=== PATIENT | male | born 1965 | race Caucasian/White ===

== ENCOUNTER 2016-09-18 10:01 | Inpatient (IN) | payer OTHER, MEDICARE ==
[~2016-09-18] VITALS: Ht 172.7 cm; Wt 90.7 kg
[~2016-09-18 10:01] MED LIST: AUGMENTIN 875875 MG PO; FLUOXETINE HCL20 MG PO; GABAPENTIN TAB600 MG PO; LOVENOX 10100 MG/1 M SC; NEURONTIN300 MG PO; PERCOCET 325 MG1 TA2 PO; WARFARIN SODIUM5 MG PO
--- NOTE | 2016-09-18 10:09 | NUR ---
PT TO ED, SENT BY DR FAIRBANKS FOR ADMISSION FOR IV ABX. PT HAS CHRONIC WOUNDS TO B/L LE. PT NEEDS DIURESIS AND EVENTUALLY PLACEMENT. PT HAS BEEN GOING TO THE WOUND CENTER TWICE A WEEK.
--- NOTE | 2016-09-18 10:28 | ED SKIN/ALLERGY COMPLAINT ---
History of Present Illness General Chief Complaint: Lower Extremity Injury Stated Complaint: ? LEG INFECTION Source: patient Exam Limitations: no limitations Allergies Coded Allergies: NO KNOWN ALLERGIES (UNKNOWN 09/21/16) Reconcile Medications Amoxicillin/Clavulanate Potass (Amox-Clav 875-125 MG Tablet) 875 MG-125 MG TABLET 1 TAB PO Q12 Skin infection FLUOXETINE HCL (Fluoxetine HCl) 20 MG CAPSULE 1 CAP PO DAILY DEPRESSION ( Reported) Gabapentin 100 MG CAPSULE 1 TAB PO 0600,1400 Neuropathy Gabapentin 300 MG CAPSULE 1 CAP PO AT BEDTIME neuropathy Hydrocodone/Acetaminophen (Hydrocodon-Acetaminophen 5-325) 5 MG-325 MG TABLET 2 TAB PO Q4-6 PRN Back pain Lidocaine (Lidoderm) 5 % ADH..PATCH 1 PAT EXT DAILY PRN Back pain Oxycodone HCl/Acetaminophen (Oxycodone-Acetaminophen 5-325) 5 MG-325 MG TABLET 5 PAIN CONTROL (Reported) Polyethylene Glycol 3350 (Miralax) 17 GRAM/DOSE POWDER 1 PAC PO AT BEDTIME PRN Contipation Please take to maintain 1 bowel movement per day Rivaroxaban (Xarelto) 15 MG TABLET 15 BLOOD THINNER (Reported) Sennosides/Docusate Sodium (Senna Plus Tablet) 8.6 MG-50 MG TABLET 1 TAB PO AT BEDTIME PRN Constipation Please take to maintain one bowel movement per day Triage Note: PT TO ED, SENT BY DR HUNTER FOR ADMISSION FOR IV ABX. PT HAS CHRONIC WOUNDS TO B/L LE. PT NEEDS DIURESIS AND EVENTUALLY PLACEMENT. PT HAS BEEN GOING TO THE WOUND CENTER TWICE A WEEK. Triage Nurses Notes Reviewed? yes HPI: This patient is a 51-year-old male who presented to the emergency department today sent in by Dr. HUNTER for evaluation of lower extremity infections. The patient reported that over the last couple of days the pain in his lower extremities has been worse than normal. The pain developed at 10 out of 10 and radiates up to his thighs. He was unable to describe the pain. The patient reported that he was vomiting a couple days ago, but no nausea or vomiting currently. He denied any fevers or chills. No chest pain or difficulty breathing. He reported that ambulation makes the pain worse. Nothing makes the pain better. (SUMANTH ROCKWELL,KENNEDI) Vital Signs & Intake/Output Vital Signs & Intake/Output Vital Signs Date Time Temp Pulse Resp B/P B/P Pulse O2 O2 Flow FiO2 Mean Ox Delivery Rate 09/22 0616 98.1 86 20 120/90 99 Room Air 09/21 2250 98.2 94 20 144/84 100 Room Air 09/21 1506 Room Air Room Air 09/21 1441 98.8 92 20 122/80 96 Room Air ED Intake and Output 09/22 0000 09/21 1200 Intake Total 900 Output Total 900 300 Balance 0 -300 Intake, IV 200 Intake, Oral 700 Number 1 Bowel Movements Output, Urine 900 300 Past History Travel History Traveled to [place] past 21 day No Medical History Any Pertinent Medical History? see below for history Psychiatric: depression Endocrine: borderline dm History of MRSA: Yes History of VRE: No History of CDIFF: No Pneumonia Vaccine: 08/23/12 Surgical History Surgical History: non-contributory Psychosocial History Who do you live with Patient/Self Services at Home Nursing What is your primary language Sinhala Tobacco Use: Current Not Daily ETOH Use: denies use Illicit Drug Use: denies illicit drug use Family History Family History, If Any: FATHER (Hypertension and heart disease). MOTHER (Hypertension). Hx Contributory? No (KENNEDI JULIO PA-C) Review of Systems Review of Systems Constitutional: Reports: no symptoms. EENTM: Reports: no symptoms. Respiratory: Reports: no symptoms. Cardiovascular: Reports: no symptoms. GI: Reports: no symptoms. Genitourinary: Reports: no symptoms. Musculoskeletal: Reports: see HPI. Skin: Reports: see HPI. Neurological/Psychological: Reports: no symptoms. All Other Systems: Reviewed and Negative (KENNEDI JULIO PA-C) Physical Exam Physical Exam General Appearance: well developed/nourished, no apparent distress, alert, awake Comments: Well-developed well-nourished person in no acute distress HEENT: Normal EENT exam, head normocephalic, moist mucous membranes PERRLA bilaterally Neck: Supple, no lymphadenopathy Back: Normal inspection Cardiovascular: Regular rate and with no murmurs, rubs, or gallops Respiratory: No respiratory distress. Breath sounds clear to auscultation bilaterally Extremity: Bilateral lower extremity erythema with multiple ulcerations to the bilateral lower extremities. Tenderness to palpation. Edematous. 1+ pitting edema. Dorsalis pedis and posterior tibialis pulses 2+ and strong. Neuro: Alert oriented x3, cranial nerves II through XII grossly intact. Skin: No appreciable rash on exposed skin, skin is warm and dry. Psych: Mood and affect is flat (KENNEDI JULIO PA-C) Progress Differential Diagnosis: abscess/cellulitis, contact dermatitis, erythema multiforme, lyme disease, meningitis/sepsis, dvt, pe Initial ED EKG: normal axis, normal intervals, normal sinus rhythm, no ST T wave changes, 92 BPM (KENNEDI JULIO PA-C) Plan of Care: Orders Procedure Date/time Status Anticipated Discharge 09/22 UNK Active Therapeutic Activities 09/21 UNK Complete Therapeutic Exercise 09/21 UNK Complete Gait Training 09/21 UNK Complete Current Medications Sig/Malinda Start time Last Medication Dose Stop Time Status Admin Acetaminophen/ 2 TAB Q4P PRN 09/22 0800 AC 09/22 Hydrocodone Bitart 0922 (Vicodin) Gabapentin 100 MG 0600,1400 09/22 0600 AC 09/22 (Neurontin) 0532 Amoxicillin/ 875 MG Q12 09/21 2200 AC 09/22 Clavulanate Potassium 09/24 1001 0926 (Augmentin) Gabapentin 300 MG 22009/21 2200 AC 09/21 (Neurontin) 2142 Morphine Sulfate 2 MG Q4P PRN 09/21 1200 AC 09/21 (Morphine) 1446 Ondansetron HCl 4 MG Q6P PRN 09/21 0030 AC 09/21 (Zofran) 0043 Polyethylene Glycol 17 GM AT BEDTIME 09/20 2200 AC 09/21 (Miralax) 2143 Senna/Docusate Sodium 1 TAB AT BEDTIME 09/20 2200 AC 09/21 (Senokot S) 2142 Acetaminophen 650 MG Q6P PRN 09/20 1500 AC (Tylenol) Fluoxetine HCl 20 MG DAILY 09/19 1000 AC 09/22 (Prozac) 0926 Nystatin 1 FRED TID PRN 09/19 0900 AC 09/19 (Mycostatin) 2144 Ferrous Sulfate 325 MG BID 09/18 2200 AC 09/22 (Feosol) 0926 Rivaroxaban 15 MG 1700 09/18 1700 AC 09/21 (Xarelto) 1925 Lidocaine 1 PAT DAILY 09/18 1445 AC 09/22 (Lidoderm) 0926 Laboratory Tests 09/21/16 1530: APTT Cancelled Departure Departure Disposition: STILL A PATIENT Condition: Stable Clinical Impression Primary Impression: Cellulitis Qualifiers: Site of cellulitis: unspecified site Qualified Code: L03.90 - Cellulitis, unspecified Secondary Impressions: Leukocytosis Qualifiers: Leukocytosis type: unspecified Qualified Code: D72.829 - Elevated white blood cell count, unspecified Referrals: GAURAV ESCOBAR,RONALD Garcia (PCP/Family) Departure Forms: Customer Survey General Discharge Information Prescriptions: Current Visit Scripts Amoxicillin/Clavulanate Potass (Amox-Clav 875-125 MG Tablet) 1 TAB PO Q12 #6 Gabapentin 1 TAB PO 0600,1400 30 Days Polyethylene Glycol 3350 (Miralax) 1 PAC PO AT BEDTIME PRN Contipation 28 Days Please take to maintain 1 bowel movement per day Sennosides/Docusate Sodium (Senna Plus Tablet) 1 TAB PO AT BEDTIME PRN Constipation 28 Days Please take to maintain one bowel movement per day Lidocaine (Lidoderm) 1 PAT EXT DAILY PRN Back pain 28 Days Gabapentin 1 CAP PO AT BEDTIME 30 Days Hydrocodone/Acetaminophen (Hydrocodon-Acetaminophen 5-325) 2 TAB PO Q4-6 PRN Back pain #60 TAB Admission Note Spoke With: IVELISSE TONY MD Documentation of Exam: Documentation of any treatments & extenuating circumstances including Concerns Regarding Discharge (functional status, medication knowledge or non-compliance, living conditions, etc.) that warrant an admission rather than observation: [ This patient is a 51-year-old male who presented to the emergency department today sent in by Dr. hunter for admission and IV antibiotics. White blood cell count 12.9. Cellulitis of bilateral lower extremities with overlying wounds. This patient will need IV antibiotics, gentle diuresis, gentle hydration, IV pain control, trend labs, and close monitoring. Premature discharge could prove medically harmful.] (SUMANTH ROCKWELL,KENNEDI) PA/IRON GUARDRAIL INSTALLER Co-Sign Statement Statement: ED Attending supervision documentation- [X] I saw and evaluated the patient. I have also reviewed all the pertinent lab results and diagnostic results. I agree with the findings and the plan of care as documented in the PA's/IRON GUARDRAIL INSTALLER's documentation. [X] I have reviewed the ED Record and agree with the PA's/IRON GUARDRAIL INSTALLER's documentation. [] Additions or exceptions (if any) to the PAs/IRON GUARDRAIL INSTALLER's note and plan are summarized below: [] (FLAVIA ESCOBAR,PARRISH Pascual)
[2016-09-18 11:10] LABS: ABSOLUTE BASOPHIL COUNT 0 /CUMM (0.0-0.2); ABSOLUTE EOSINOPHIL COUNT 0.3 /CUMM (0.0-0.7); ABSOLUTE GRANULOCYTE CT 10.4 /CUMM (1.4-6.5); ABSOLUTE LYMPH COUNT 1.3 /CUMM (1.2-3.4); ABSOLUTE MONOCYTE COUNT 0.8 /CUMM (0.10-0.60); BASOPHIL % 0.1 % (0.0-2.0); EOSINOPHIL % 2.3 % (0-5); HEMATOCRIT 36.6 % (42-52); MEAN CORPUSCULAR HGB 29.2 PG (27.0-31.0); MEAN CORPUSCULAR HGB CONC 33.5 G/DL (33.0-37.0); MEAN PLATELET VOLUME 7.5 FL (7.4-10.4); PLATELET COUNT 318 /CUMM (130-400); RBC DISTRIBUTION WIDTH 15.7 % (11.5-14.5); WHITE BLOOD CELL COUNT 12.9 /CUMM (4.8-10.8)
--- NOTE | 2016-09-18 12:28 | NUR ---
PT TO ROOM [id number]
--- NOTE | 2016-09-18 12:29 | History & Physical ---
ARCELIA APARICIO 09/18/16 1228: General Information and HPI MD Statement: I have seen and personally examined DINO MADDOX and documented this H&P. The patient is a 51 year old M who presented with a patient stated chief complaint of [leg swelling, left lower back/thigh pain]. Source of Information: patient, old records Exam Limitations: no limitations History of Present Illness: Mr Maddox 51-year-old gentleman with a PMH of chronic venous stasis for multiple years complicated with nonhealing ulcers for which he has undergone multiple debridements, I&D, splenic thickness skin graft, cellulitis with skin cultures positive for MRSA (2007), Pseudomonas, Proteus and MSSA. Additional PMH includes bilateral lower extremity DVT, ?? Factor V Leyden deficiency, history of GI bleed secondary to hemorrhoids, anemia, CKD and depression. The patient was referred to the ED after a visit to the wound center and noted to have progressive lower extremity swelling with associated pain. He usually follows up the wound center every 2 weeks for dressing changes. Unfortunately, one month ago he hurt his back while moving gym equipment at home and has since been experiencing left lower back and left thigh pain which has limited his ability to walk, lay down, or wheezes legs. The patient states that he did follow-up at [facility] shortly after for which an MRI did show evidence of scar herniation. Due to this discomfort he has not been able to keep his legs elevated and has had progressive lower extremities swelling, redness and beaking out of the toes. ROS: He denies any fevers, chills, chest pain, shortness of breath, palpitations , nausea, abdominal pain. Allergies/Medications Allergies: Coded Allergies: NO KNOWN ALLERGIES (02/05/16) Home Med list FLUOXETINE HCL (Fluoxetine HCl) 20 MG CAPSULE 1 CAP PO DAILY DEPRESSION ( Reported) Oxycodone HCl/Acetaminophen (Oxycodone-Acetaminophen 5-325) 5 MG-325 MG TABLET 5 PAIN CONTROL (Reported) Rivaroxaban (Xarelto) 15 MG TABLET 15 BLOOD THINNER (Reported) Past History Travel History Traveled to [place] past 21 day No Medical History Musculoskeletal: disk herniation Psychiatric: depression Endocrine: obesity, borderline dm Blood Disorders: DVT History of MRSA: Yes History of VRE: No History of CDIFF: No Pneumonia Vaccine: 08/23/12 Surgical History Surgical History: Debridement and skin graft of LE Past Family/Social History Family History Relations & Conditions if any FATHER (Hypertension and heart disease). MOTHER (Hypertension). Psychosocial History Services at Home: Nursing ETOH Use: denies use Illicit Drug Use: denies illicit drug use Review of Systems Review of Systems Constitutional: Reports: see HPI. EENTM: Reports: no symptoms. Cardiovascular: Reports: no symptoms. Respiratory: Reports: no symptoms. GI: Reports: no symptoms. Genitourinary: Reports: no symptoms. Musculoskeletal: Reports: see HPI. Skin: Reports: see HPI. Exam & Diagnostic Data Last 24 Hrs of Vital Signs/I&O Vital Signs Date Time Temp Pulse Resp B/P B/P Pulse O2 O2 Flow FiO2 Mean Ox Delivery Rate 09/18 1300 97.2 89 18 118/82 97 Room Air 09/18 1220 97 Room Air 09/18 1008 98.6 93 20 113/69 97 Room Air Intake & Output 09/18 1600 09/18 0800 09/18 0000 Intake Total Output Total Balance Patient 200 lb Weight Weight Estimated Measurement Method Physical Exam General Appearance Alert, Cooperative, No Acute Distress Skin Erythematous BL LE. HEENT EOMI, Mucous Membr. moist/pink Cardiovascular Regular Rate, Normal S1, Normal S2 Lungs Clear to Auscultation, Normal Air Movement, Distant lung sounds Abdomen Normal Bowel Sounds, Soft, No Tenderness, Obese habitus Neurological Sensation Intact, Hypeersensitivity to touch in BL LE Extremities 3+ pittting edema BL LE Vascular Difficulty assessing pulses in dorsalis pedis Last 24 Hrs of Labs/Rock: Laboratory Tests 09/18/16 1101: Anion Gap 12, Estimated GFR 49 L, BUN/Creatinine Ratio 22.0, Glucose 102 H, Lactic Acid 1.2, Calcium 9.3, Total Bilirubin 0.6, AST 26, ALT 35, Alkaline Phosphatase 55, Troponin I 0.04, Ajh-M-Rtdodowcpoz Pept 125, Total Protein 7.0, Albumin 4.0, Globulin 3.0, Albumin/Globulin Ratio 1.3, CBC w Diff NO MAN DIFF REQ, RBC 4.20 L, MCV 87.0, MCH 29.2, RDW 15.7 H, MPV 7.5, Gran % 81.0 H, Lymphocytes % 10.3 L, Monocytes % 6.3, Eosinophils % 2.3, Basophils % 0.1, Absolute Granulocytes 10.4 H, Absolute Lymphocytes 1.3, Absolute Monocytes 0.8 H, Absolute Eosinophils 0.3, Absolute Basophils 0, PUBS MCHC 33.5 Microbiology 09/18 1220 BLOOD: Blood Culture - RECD 09/18 1118 BLOOD: Blood Culture - CAN Cancelled: QNS 09/18 1027 BLOOD: Blood Culture - ORD Diagnostic Data EKG Results Sinus rhythm, HR 92 BPM. A troponin which are complex. Left anterior fascicular block. AL interval 148. QTC 441 Assessment/Plan Assessment: 51-year-old gentleman with a PMH of chronic venous stasis for multiple years complicated with nonhealing ulcers for which he has undergone multiple debridements, I&D, splenic thickness skin graft, cellulitis with skin cultures positive for MRSA (2007), Pseudomonas, Proteus and MSSA, bilateral lower extremity DVT, ?? Factor V Leyden deficiency, history of GI bleed secondary to hemorrhoids, anemia, CKD and depression. Patient presents with complaints of one-month duration lower extremity swelling, redness and weeping. He reports injuring his back approximately one month ago while moving a total gym at home, followed up at [facility] and reports MRI of the lumbar region showing disc herniation. Despite steroids and Percocets he reports persistent low back and left thigh pain limiting his ability to lay or sit down and keep his legs elevated which has conjugated to the lower extremity leg swelling, weeping. VS on admission: BP 113/69, HR 93, RR 20, SPO2 97% on RA, T 98.6 Pertinent labs on admission: WBC 12.9, H&H 12.3/36.6, platelets 318, sodium 141, potassium 4.9, chloride 111, BUN/CR 33/1.5 Lactic acid: 1.2 Problem list: 1. Lower extremity cellulitis 2. Chronic venous insufficiency 3. Lower extremity edema 4. Sciatica 5. History of bilateral DVT 6. Chronic kidney disease 7. Anemia 8. Obesity Plan: 1. Lower extremity cellulitis * Prior records show wound cultures positive for Pseudomonas, Proteus mirabilis, MSSA * In the setting of broad affected area, weeping skin, skin breakdown we'll start the patient in Unasyn, follow up blood cultures if no clinical improvement consider adding ceftaz * Follow up blood cultures 2. Chronic venous insufficiency * Leg elevation * Wound consult for recommendations on leg wrapping if tolerated 3. Lower extremity edema * Recommendations as above * We'll obtain echocardiogram to assess LVEF 4. Sciatica * We'll start the patient on a ladder came patch along with Tylenol for symptomatic control 5. History of bilateral DVT * Continue on Xarelto 6. Chronic kidney disease * We'll avoid nephrotoxic agents. Follow-up renal function in the a.m. 7. Anemia * Likely secondary to chronic kidney disease * Will follow-up iron studies and if deficient start the patient on ferrous sulfate 325 mg 8. Obesity * Heart healthy diet * Follow-up hemoglobin A1c As Ranked By This Provider Problem List: 1. Cellulitis 2. Chronic venous insufficiency 3. Leg edema 4. Sciatica 5. History of DVT (deep vein thrombosis) 6. CKD (chronic kidney disease) 7. Anemia 8. Obesity Core Measures/Miscellaneous Acute Coronary Syndrome ACS Diagnosis: No Cerebrovascular Accident CVA/TIA Diagnosis: No Congestive Heart Failure CHF Diagnosis: No Venous Thromboembolism VTE Risk Factors: Age > 40 [facility] prophylaxis d/t: No contraindications No VTE Pharm Prophylaxis d/t: No contraindications VTE Diagnosis: No VTE Type: NONE VTE Confirmed by (Test): NONE Severe Sepsis Severe Sepsis Present: No Septic Shock Septic Shock Present: No Miscellaneous Documentation Attending Case Discussed With: IVELISSE TONY MD Primary Care Physician: RONALD NOLASCO MD Patient sees these Specialists Dr Raza (computer help desk specialist) Level of Patient Care: General Medicine Resident Review Statement Resident Statement: examined this patient, discussed with environmental health and safety intern, agreed with environmental health and safety intern, reviewed EMR data (avail), discussed with nursing IVELISSE TONY MD 09/18/16 1616: Attending MD Review Statement Attending Statement Attending MD Statement: examined this patient, discuss w/resident/PA/CLAY HOISTER, agreed w/resident/PA/CLAY HOISTER, reviewed EMR data (avail) Attending Assessment/Plan: 51M PMH obesity, chronic venous stasis with multiple episodes of LE cellulitis with wound cultures growing mRSA (2012) and Pseudomonas (2014), Factor V Leiden, bilateral DVT in the past sent from wound care center for worsening LE edema, pain, and erythema R>L. Patient hurt his back moving something heavy a few days ago and has struggled to keep his legs elevated due to back pain. Denies fever, chills, n/v/d. Legs are edematous and erythematous R>L, no purulence but clear weepy discharge. Afebrile, WBC 12.9, labs otherwise normal. No recent trauma or exposure to legs. Plan - Admit to general medicine - Leg elevation - Start Unasyn - Send blood cultures - Would benefit from compression of lower legs as tolerated by pain - Wound care consult - Start Flexeril and Lidocaine patch for back pain - Start Celebrex for mild-moderate back pain - May continue Percocet for severe pain - Continue home medications - PT eval - DVT PPx
--- NOTE | 2016-09-18 12:56 | NUR ---
REPORT GIVEN TO [facility]. 2ND SET OF BC WILL BE DONE AT [facility]. [facility] CALLED FOR TRANSPORT.
--- NOTE | 2016-09-18 13:02 | NUR ---
HOUSE STAFF AT BEDSIDE.
[2016-09-18] MEDS ORDERED: XARELTO15 M2 (13:33)
[2016-09-18] MEDS ORDERED: OXYCODONE-ACET1 EACH (13:33)
[2016-09-18 13:50] VITALS: BP 142/90
--- NOTE | 2016-09-18 13:50 | NUR ---
pt arrived to floor in wc with distribution, vss, a/ox3, ra, pain 01/17 to ble, iv intact, dsgs to ble cdi(abbie), oriented to room, will continue to monitor.
--- NOTE | 2016-09-18 16:20 | Admission Certification ---
Admission Certification Certification Statement - As attending physician, I certify that at the time of - admission, based on clinical presentation, severity of - symptoms, need for further diagnostic testing and - therapeutic interventions, and risk of adverse outcomes - without in-hospital treatment, in my clinical assessment, - this patient requires an acute hospital stay for a minimum - of two nights or longer. I have also considered psychsocial - factors such as support system, advanced age, financial - issues, cognitive issues, and failed out-patient treatments, - past re-admission history, safety of patient, and lack of - compliance as applicable. Specific rationale supporting this admission is: Cellulitis RLE failing outpatien therapy with leukocytosis and pain
[2016-09-18 22:35] VITALS: BP 140/70
[2016-09-19 07:22] VITALS: BP 140/74
--- NOTE | 2016-09-19 07:53 | PN- Housestaff ---
See Addendum Subjective Follow-up For: Lower extremity cellulits Subjective: I saw the patient today morning He is sitting in the bed, unable to tolerate the pain. Reports he still had significant pain radiating all the way down to his feet on the left side. Pain is medications are not helping but still pain persists. No overnight fever, chills. both his lower extremity dressins are wet with the weeping wounds. Changed by the nursing stafff in the later part of the day. Review of Systems Constitutional: Reports: see HPI. Comments: ROS negative except the above. Objective Last 24 Hrs of Vital Signs/I&O Vital Signs Date Time Temp Pulse Resp B/P B/P Pulse O2 O2 Flow FiO2 Mean Ox Delivery Rate 09/19 0722 97.4 111 22 140/74 99 Room Air 09/19 0000 96 Room Air Room Air 09/18 2235 98.2 97 20 140/70 96 Room Air 09/18 1350 98.4 96 20 142/90 96 Room Air 09/18 1300 97.2 89 18 118/82 97 Room Air 09/18 1220 97 Room Air 09/18 1008 98.6 93 20 113/69 97 Room Air Intake & Output 09/19 0800 09/19 0000 09/18 1600 Intake Total 800 Output Total 450 Balance -450 800 Intake, IV 200 Intake, Oral 600 Output, Urine 450 Patient 90.718 kg Weight Weight Reported by Patient Measurement Method Physical Exam General Appearance: Alert, Oriented X3, Cooperative, Moderate Distress, Obese Skin: extensive weeping wounds bilaterally on both the lower extremities. HEENT: Atraumatic, PERRLA, EOMI Neck: Supple, No JVD Cardiovascular: Regular Rate, Normal S1, Normal S2 Lungs: Clear to Auscultation, Normal Air Movement Abdomen: Normal Bowel Sounds, Soft, No Tenderness Neurological: Sensation Intact, Cranial Nerves 3-12 NL Extremities: No Clubbing, No Cyanosis, 3+ pitting edema present with extensive wheeping wounds Vascular: Pulses Symmetrical Current Medications: Current Medications Sig/Malinda Start time Last Medication Dose Route Stop Time Status Admin Acetaminophen 650 MG Q6P PRN 09/18 1315 AC PO Acetaminophen/ 1 TAB Q6P PRN 09/18 1315 AC 09/19 Hydrocodone Bitart PO 1732 Ampicillin Sodium/ 3,000 MG Q6 09/18 1353 AC 09/19 Sulbactam Sodium IV 1734 Sodium Chloride 100 ML Celecoxib 100 MG Q12P PRN 09/19 0115 DC PO Cyclobenzaprine HCl 5 MG ONCE ONE 09/19 1400 DC 09/19 PO 09/19 1401 1502 Ferrous Sulfate 325 MG BID 09/18 2200 AC 09/19 PO 0933 Fluoxetine HCl 20 MG DAILY 09/19 1000 AC 09/19 PO 0934 Gabapentin 100 MG Q8 09/18 1730 AC 09/19 PO 1413 Lidocaine 1 PAT DAILY 09/18 1445 AC 09/19 EXT 0934 Morphine Sulfate 2 MG ONCE ONE 09/18 1915 DC 09/18 IV 09/18 191 1927 Nystatin 1 FRED TID PRN 09/19 0900 AC 09/19 TOP 1148 Oxycodone/ 2 TAB Q4P PRN 09/18 191 AC 09/19 Acetaminophen PO 1818 Oxycodone/ 2 TAB Q6P PRN 09/18 1315 DC 09/18 Acetaminophen PO 1440 Rivaroxaban 15 MG 1700 09/18 1700 AC 09/19 PO 1732 Last 24 Hrs of Lab/Rock Results Last 24 Hrs of Labs/Mics: Laboratory Tests 09/19/16 0638: Anion Gap 13, Estimated GFR 49 L, BUN/Creatinine Ratio 24.7, CBC w Diff NO MAN DIFF REQ, RBC 4.08 L, MCV 88.8, MCH 29.7, RDW 16.0 H, MPV 7.6, Gran % 78.5 H, Lymphocytes % 10.0 L, Monocytes % 7.7, Eosinophils % 3.6, Basophils % 0.2, Absolute Granulocytes 9.2 H, Absolute Lymphocytes 1.2, Absolute Monocytes 0.9 H, Absolute Eosinophils 0.4, Absolute Basophils 0, PUBS MCHC 33.5 Assessment/Plan Assessment: 51-year-old gentleman with a PMH of chronic venous stasis for multiple years complicated with nonhealing ulcers for which he has undergone multiple debridements, I&D, splenic thickness skin graft, cellulitis with skin cultures positive for MRSA (2007), Pseudomonas, Proteus and MSSA, bilateral lower extremity DVT, ?? Factor V Leyden deficiency, history of GI bleed secondary to hemorrhoids, anemia, CKD and depression. Presented with persistent cellulitis after failing outpatient antibiotic therapy , right flank pain since around a month despite various therapies. VS on admission: BP 113/69, HR 93, RR 20, SPO2 97% on RA, T 98.6 Pertinent labs on admission: WBC 12.9, H&H 12.3/36.6, platelets 318, sodium 141, potassium 4.9, chloride 111, BUN/CR 33/1.5 Lactic acid: 1.2 Plan: Lower extremity cellulitis * Prior records show wound cultures positive for Pseudomonas, Proteus mirabilis, MSSA * Patient has been following wound care center since a long time, had chronic wounds. * On unasyn IV Q6, in case if not getting better given hisotory of MRSA, pseudomonas consider broad spectrum antibiotics. * Currently afebrile, tachycardic (in pain) on room air with leukocytosis of 11 * Follow up with blood cultures, white count, response to antibiotics. * Appropiate wound care. Chronic venous insufficiency leading to edema * Leg elevation * Provided with dry dressing change using Kerlix plus abdomianl pad dressings. Sciatica * We'll start the patient on a Lidocaine patch along with Tylenol for symptomatic control * percocet and vicodine for severe pain. H/O bilateral DVT * Continue on Xarelto Chronic kidney disease * We'll avoid nephrotoxic agents. Follow-up renal function in the a.m. * CKD stage III - GFR 49, Cr 1.5 Anemia * Normocytic while on ferrous sulphate 325mg TID. 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 Cellulitis 2. chronic leg ulcers 3. Ulcer of right leg 4. Chronic venous insufficiency 5. Sciatica Pain Ratin Pain Location: lower lumbar region radiating on the left side Pain Goal: Pain 4 or less Pain Plan: tylenol, vicodien, percocet Tomorrow's Labs & Rationales: CBC to monitor white count and response to antibiotics
[2016-09-19 08:43] LABS: ABSOLUTE BASOPHIL COUNT 0 /CUMM (0.0-0.2); ABSOLUTE EOSINOPHIL COUNT 0.4 /CUMM (0.0-0.7); ABSOLUTE GRANULOCYTE CT 9.2 /CUMM (1.4-6.5); ABSOLUTE LYMPH COUNT 1.2 /CUMM (1.2-3.4); ABSOLUTE MONOCYTE COUNT 0.9 /CUMM (0.10-0.60); BASOPHIL % 0.2 % (0.0-2.0); EOSINOPHIL % 3.6 % (0-5); GRANULOCYTE % 78.5 % (42.2-75.2); HEMATOCRIT 36.2 % (42-52); MEAN CORPUSCULAR HGB 29.7 PG (27.0-31.0); MEAN CORPUSCULAR HGB CONC 33.5 G/DL (33.0-37.0); MEAN CORPUSCULAR VOLUME 88.8 FL (80.0-94.0); MEAN PLATELET VOLUME 7.6 FL (7.4-10.4); PLATELET COUNT 303 /CUMM (130-400); RED BLOOD CELL CT 4.08 /CUMM (4.70-6.10); WHITE BLOOD CELL COUNT 11.7 /CUMM (4.8-10.8)
[2016-09-19 14:36] VITALS: BP 128/84
[2016-09-19 23:05] VITALS: BP 130/87
[2016-09-20 06:58] VITALS: BP 130/70
[2016-09-20 11:09] LABS: ABSOLUTE BASOPHIL COUNT 0 /CUMM (0.0-0.2); ABSOLUTE EOSINOPHIL COUNT 0.4 /CUMM (0.0-0.7); ABSOLUTE GRANULOCYTE CT 7.3 /CUMM (1.4-6.5); ABSOLUTE LYMPH COUNT 1.4 /CUMM (1.2-3.4); ABSOLUTE MONOCYTE COUNT 0.9 /CUMM (0.10-0.60); BASOPHIL % 0.2 % (0.0-2.0); EOSINOPHIL % 3.7 % (0-5); GRANULOCYTE % 72.7 % (42.2-75.2); HEMATOCRIT 36.5 % (42-52); MEAN CORPUSCULAR HGB 29.3 PG (27.0-31.0); MEAN CORPUSCULAR HGB CONC 33.1 G/DL (33.0-37.0); MEAN CORPUSCULAR VOLUME 88.5 FL (80.0-94.0); MEAN PLATELET VOLUME 7.9 FL (7.4-10.4); PLATELET COUNT 331 /CUMM (130-400); RBC DISTRIBUTION WIDTH 15.5 % (11.5-14.5); RED BLOOD CELL CT 4.12 /CUMM (4.70-6.10)
--- NOTE | 2016-09-20 12:15 | NUR ---
LATE ENTRY: RN ENTERED PT'S ROOM TO FIND PT VOMITING. PT'S EMESIS NOTED TO BE MOSTLY FOOD PARTICLES, SMALL AMOUNT OF EMESIS- BROWN IN COLOR. PT VS ASSESSED. STABLE. PT DENIES ANY DISCOMFORT. REPORTS HE FEELS BETTER AFTER VOMITING. DENIES ANY FURTHER NAUSEA. MD JC INFORMED OF ABOVE. WILL CONT TO MONITOR.
--- NOTE | 2016-09-20 12:30 | NUR ---
PT HAS BEEN DEALING WITH CHRONIC PAIN R/T SCIATICA AND BACK INJURY. PT ALSO HAS ACUTE PAIN WITH HIS WOUNDS NOW. RN HAS BEEN PROVIDING PT ALL AVAILABLE MEDICATIONS POSSIBLE BUT PT STILL IN DISCOMFORT. ELEVATION OF LE'S ENCOURAGED BUT PT REPORTS DOING SO HURTS HIS "BACK MORE." MAINTENANCE DEPARTMENT MANAGER BABITA AND DR. GOMEZ NOTIFIED OF ABOVE. BOTH PHYSICIANS ALSO UPDATED REGARDING PT'S INCREASED EDEMA AND REDNESS TO BLE'S. SNO. WILL CONT TO MONITOR.
--- NOTE | 2016-09-20 14:50 | NUR ---
LATE ENTRY: PT GIVEN ONE TIME MORPHINE DOSE AND LATER GIVEN PRN PO PERCOCETS FOR PAIN CONTROL. PT FOUND RESTING IN BED. REPORT TO BE GIVEN SHORTLY TO ONCOMING RN. TO CONT TO MONITOR.
[2016-09-20 15:30] VITALS: BP 122/80
--- NOTE | 2016-09-20 19:56 | PN- Housestaff ---
DANNI ESCOBAR,NEERU 09/20/161951: Subjective Follow-up For: cellulitis Complaints: no complaints Subjective: comfortable, still have pain. renains afebrile,non/v/d/abd. pain Review of Systems Constitutional: Reports: see HPI. Objective Last 24 Hrs of Vital Signs/I&O Vital Signs Date Time Temp Pulse Resp B/P B/P Pulse O2 O2 Flow FiO2 Mean Ox Delivery Rate 09/20 1530 97.8 100 18 122/80 98 Room Air 09/20 0658 97.8 98 18 130/70 97 Room Air 09/19 2305 98.2 97 20 130/87 99 Room Air Intake & Output 09/20 1600 09/20 0800 09/20 0000 Intake Total 450 200 240 Output Total 580 650 Balance -130 200 -410 Intake, IV 150 200 Intake, Oral 300 240 Output, Urine 580 650 Physical Exam General Appearance: Alert, Oriented X3, Cooperative, Mild Distress Skin: both le whiping wound HEENT: Atraumatic, PERRLA, EOMI, Mucous Membr. moist/pink Neck: Supple, No JVD Lymphatic: Cervical nl Cardiovascular: Normal S1, Normal S2, No Murmurs Lungs: Clear to Auscultation, Normal Air Movement Abdomen: Normal Bowel Sounds, Soft, No Tenderness Neurological: Normal Speech, Strength at 5/5 X4 Ext, Normal Tone, Sensation Intact Extremities: Normal Pulses, 3+ edema Current Medications: Current Medications Sig/Malinda Start time Last Medication Dose Route Stop Time Status Admin Acetaminophen 650 MG Q6P PRN 09/20 1500 AC PO Acetaminophen 650 MG Q6P PRN 09/18 1315 DC PO Acetaminophen/ 1 TAB Q6P PRN 09/20 1545 AC 09/20 Hydrocodone Bitart PO 1817 Acetaminophen/ 1 TAB Q6P PRN 09/18 1315 DC 09/20 Hydrocodone Bitart PO 0946 Ampicillin Sodium/ 3,000 MG Q6 09/18 1353 AC 09/20 Sulbactam Sodium IV 1818 Sodium Chloride 100 ML Ferrous Sulfate 325 MG BID 09/18 2200 AC 09/20 PO 0947 Fluoxetine HCl 20 MG DAILY 09/19 1000 AC 09/20 PO 0947 Furosemide 20 MG ONCE ONE 09/20 1300 DC 09/20 IV 09/20 1301 1336 Gabapentin 100 MG Q8 09/18 1730 AC 09/20 PO 1336 Lidocaine 1 PAT DAILY 09/18 1445 AC 09/20 EXT 0947 Morphine Sulfate 4 MG Q4P PRN 09/20 1500 AC IV Morphine Sulfate 2 MG ONCE ONE 09/20 1215 DC 09/20 IV 09/20 1216 1209 Nystatin 1 FRED TID PRN 09/19 0900 AC 09/19 TOP 2144 Oxycodone/ 1 TAB Q6P PRN 09/20 1500 DC Acetaminophen PO Oxycodone/ 2 TAB Q4P PRN 09/18 1915 DC 09/20 Acetaminophen PO 1336 Polyethylene Glycol 17 GM AT BEDTIME 09/20 2200 AC PO Rivaroxaban 15 MG 1700 09/18 1700 AC 09/20 PO 1818 Senna/Docusate Sodium 1 TAB AT BEDTIME 09/20 2200 AC PO Last 24 Hrs of Lab/Rock Results Last 24 Hrs of Labs/Mics: Laboratory Tests 09/20/16 0957: CBC w Diff NO MAN DIFF REQ, RBC 4.12 L, MCV 88.5, MCH 29.3, RDW 15.5 H, MPV 7.9, Gran % 72.7, Lymphocytes % 14.3 L, Monocytes % 9.1, Eosinophils % 3.7, Basophils % 0.2, Absolute Granulocytes 7.3 H, Absolute Lymphocytes 1.4, Absolute Monocytes 0.9 H, Absolute Eosinophils 0.4, Absolute Basophils 0, PUBS MCHC 33.1 Assessment/Plan Assessment: 51-year-old gentleman with a PMH of chronic venous stasis for multiple years complicated with nonhealing ulcers for which he has undergone multiple debridements, I&D, splenic thickness skin graft, cellulitis with skin cultures positive for MRSA (2007), Pseudomonas, Proteus and MSSA, bilateral lower extremity DVT, ?? Factor V Leyden deficiency, history of GI bleed secondary to hemorrhoids, anemia, CKD and depression. Presented with persistent cellulitis after failing outpatient antibiotic therapy , right flank pain since around a month despite various therapies. VS on admission: BP 113/69, HR 93, RR 20, SPO2 97% on RA, T 98.6 Pertinent labs on admission: WBC 12.9, H&H 12.3/36.6, platelets 318, sodium 141, potassium 4.9, chloride 111, BUN/CR 33/1.5 Lactic acid: 1.2 Plan: Lower extremity cellulitis * Prior records show wound cultures positive for Pseudomonas, Proteus mirabilis, MSSA * Patient has been following wound care center since a long time, had chronic wounds. * On unasyn IV Q6, in case if not getting better given hisotory of MRSA, pseudomonas consider broad spectrum antibiotics. * Currently afebrile, tachycardic (in pain) on room air with leukocytosis of 11 * Follow up with blood cultures, white count, response to antibiotics. * Appropiate wound care. Chronic venous insufficiency leading to edema * Leg elevation * Provided with dry dressing change using Kerlix plus abdomianl pad dressings. Sciatica * We'll start the patient on a Lidocaine patch along with Tylenol for symptomatic control * percocet and vicodine for severe pain. H/O bilateral DVT * Continue on Xarelto Chronic kidney disease * We'll avoid nephrotoxic agents. Follow-up renal function in the a.m. * CKD stage III - GFR 49, Cr 1.5 Anemia * Normocytic while on ferrous sulphate 325mg TID. 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 Cellulitis Pain Ratin Pain Location: le Pain Goal: Pain 4 or less Pain Plan: tylrnol Tomorrow's Labs & Rationales: IRMA Irby MD 09/21/16 1536: Attending MD Review Statement Attending Statement Attending MD Statement: examined this patient, discuss w/resident/PA/TANDEM OPERATOR, agreed w/resident/PA/TANDEM OPERATOR, reviewed EMR data (avail), discussed with nursing, amended to note Attending Assessment/Plan: The patient was seen and discussed with resident. Agree with the plan of care as outlined.
--- NOTE | 2016-09-20 21:13 | NUR ---
ALERT AND ORIENTED X 3. ON ROOM AIR. LUNG SOUNDS CLEAR. APPEARS PALE VITAL SIGNS STABLE. DENIES CHEST PAIN. + PULSES. DENIES NUMBNESS/TINGLING +3 EDEMA TO RLE. +2 EDEMA TO LLE. DSGS TO BLE ARE C/D/I. MEDICATION GIVEN FOR DISCOMFORT. WILL CONTINUE TO MONITOR
[2016-09-20 22:39] VITALS: BP 118/80
--- NOTE | 2016-09-21 00:30 | NUR ---
NURSING NOTE: LATE ENTRY. PT BEGAN C/O OF NAUSEA AND STARTED COUGHING EXCESSIVELY. PT C/O HE FELT A BURNING SENSATION GOING UPWARDS TOWARDS CHEST. PT STATES HE WAS EXPERIENCING CHEST PAIN. VSS. LUNGS CLEAR. IMGE AWARE AND CAME UP TO ASSESS PT. EKG AND TROPONIN ORDERED. ZOFRAN AND GI COCKTAIL ORDERED. WILL CONTINUE TO MONITOR.
--- NOTE | 2016-09-21 00:45 | NUR ---
NURSING NOTE: EKG AND TROPONIN DRAWN. DIA ESCOBAR PAGED TO COME UP AND LOOK AT EKG. EKG NORMAL. PT ASKED THIS RN TO UNGATCH BED AND FELT SOME RELIEF OF HIS CHEST DISCOMFORT AFTER BED WAS UNGATCHED. GI COCKTAIL MORPHINE AND ZOFRAN GIVEN. WILL CONTINUE TO MONITOR.
[2016-09-21 06:47] VITALS: BP 120/80
--- NOTE | 2016-09-21 07:04 | PN- Housestaff ---
ARCELIA APARICIO 09/21/16 0704: Subjective Follow-up For: 1. Lower extremity cellulitis 2. Chronic venous insufficiency 3. Lower extremity edema 4. Sciatica 5. Chronic kidney disease Complaints: Intermittent pain in the left hip, low back and thigh Subjective: Interval history: This morning Mr. Maddox reports noticeable improvement in the pain of the left thigh, and back. He has been able to move around with less discomfort. He does report persistent weeping from his lower extremity mainly on the right leg. He denies any fevers, chills, chest pain, palpitations, shortness of breath, nausea, abdominal pain, diarrhea Review of Systems Constitutional: Reports: see HPI. EENTM: Reports: no symptoms. Cardiovascular: Reports: no symptoms. Respiratory: Reports: no symptoms. Gastrointestinal: Reports: no symptoms. Musculoskeletal: Reports: see HPI. Objective Last 24 Hrs of Vital Signs/I&O Vital Signs Date Time Temp Pulse Resp B/P B/P Pulse O2 O2 Flow FiO2 Mean Ox Delivery Rate 09/21 0647 97.6 92 20 120/80 96 Room Air 09/20 2239 97.5 96 22 118/80 98 Room Air 09/20 1530 97.8 100 18 122/80 98 Room Air Intake & Output 09/21 0800 09/21 0000 09/20 1600 Intake Total 340 450 Output Total 300 900 580 Balance -300 -560 -130 Intake, IV 150 Intake, Oral 340 300 Output, Urine 300 900 580 Physical Exam General Appearance: Alert, Cooperative Skin: right lower extremity with a noticeable serous drainage soaking the dressings. Erythematous ulcerations present HEENT: EOMI, Mucous Membr. moist/pink Cardiovascular: Regular Rate, Normal S1, Normal S2, distant heart sounds Lungs: Normal Air Movement, diminished breath sounds in the basilar regions bilaterally Abdomen: Normal Bowel Sounds, Soft, No Tenderness, decreased bowel sounds Extremities: Normal Pulses, 3+ pitting edema tracing upwards towards the knees. Stable over the past 24 hours Current Medications: Current Medications Sig/Malinda Start time Last Medication Dose Route Stop Time Status Admin Acetaminophen 650 MG Q6P PRN 09/20 1500 AC PO Acetaminophen 650 MG Q6P PRN 09/18 1315 DC PO Acetaminophen/ 1 TAB Q6P PRN 09/20 1545 AC 09/21 Hydrocodone Bitart PO 0559 Acetaminophen/ 1 TAB Q6P PRN 09/18 1315 DC 05/14 Hydrocodone Bitart PO 0946 Ampicillin Sodium/ 3,000 MG Q6 09/18 1353 AC 09/21 Sulbactam Sodium IV 0559 Sodium Chloride 100 ML Ferrous Sulfate 325 MG BID 09/18 2200 AC 09/20 PO 2204 Fluoxetine HCl 20 MG DAILY 09/19 1000 AC 09/20 PO 0947 Furosemide 20 MG ONCE ONE 09/20 1300 DC 09/20 IV 09/20 1301 1336 Gabapentin 100 MG Q8 09/18 1730 AC 09/21 PO 0559 Lidocaine 1 PAT DAILY 09/18 1445 AC 09/20 EXT 0947 Morphine Sulfate 4 MG Q4P PRN 09/20 1500 AC 09/21 IV 0050 Morphine Sulfate 2 MG ONCE ONE 09/20 1215 DC 09/20 IV 09/20 1216 1209 Nystatin 1 FRED TID PRN 09/19 0900 AC 09/19 TOP 2144 Ondansetron HCl 4 MG Q6P PRN 09/21 0030 AC 09/21 IV 0043 Oxycodone/ 1 TAB Q6P PRN 09/20 1500 DC Acetaminophen PO Oxycodone/ 2 TAB Q4P PRN 09/18 1915 DC 09/20 Acetaminophen PO 1336 Polyethylene Glycol 17 GM AT BEDTIME 09/20 2200 AC 09/20 PO 2204 Rivaroxaban 15 MG 1700 09/18 1700 AC 09/20 PO 1818 Senna/Docusate Sodium 1 TAB AT BEDTIME 09/20 2200 AC 09/20 PO 2204 Last 24 Hrs of Lab/Rock Results Last 24 Hrs of Labs/Mics: Laboratory Tests 09/21/16 0650: Sodium Pending, Potassium Pending, Chloride Pending, Carbon Dioxide Pending, Anion Gap Pending, BUN Pending, Creatinine Pending, BUN/Creatinine Ratio Pending , CBC w Diff Pending, WBC Pending, RBC Pending, Hgb Pending, Hct Pending, MCV Pending, MCH Pending, RDW Pending, Plt Count Pending, MPV Pending, PUBS MCHC Pending 09/21/16 0040: Troponin I 0.04 09/20/16 0957: CBC w Diff NO MAN DIFF REQ, RBC 4.12 L, MCV 88.5, MCH 29.3, RDW 15.5 H, MPV 7.9, Gran % 72.7, Lymphocytes % 14.3 L, Monocytes % 9.1, Eosinophils % 3.7, Basophils % 0.2, Absolute Granulocytes 7.3 H, Absolute Lymphocytes 1.4, Absolute Monocytes 0.9 H, Absolute Eosinophils 0.4, Absolute Basophils 0, PUBS MCHC 33.1 Assessment/Plan Assessment: 51-year-old gentleman with a PMH of chronic venous stasis for multiple years complicated with nonhealing ulcers for which he has undergone multiple debridements, I&D, splenic thickness skin graft, cellulitis with skin cultures positive for MRSA (2007), Pseudomonas, Proteus and MSSA, bilateral lower extremity DVT, ?? Factor V Leyden deficiency, history of GI bleed secondary to hemorrhoids, anemia, CKD and depression. Presented with persistent cellulitis after failing outpatient antibiotic therapy , right flank pain since around a month despite various therapies. Patient reports recent injury while moving equipment at home with follow-up at [facility], with results as indicated below. Records from [facility]: ED visit (08/26/2016): Presented with with left gluteal pain radiating down left leg after packing "[employer] "in a box. No relief with tramadol and methylprednisolone. PE positive for pain with palpation of the L gluteal area, positive L straight leg raise. MRI spine (08/26/2016): Multilevel degenerative changes most prominent at L4-L5 where there is a disc bulge and superimposed L central/paracentral disc extrusion resulting in moderate to severe spinal canal stenosis as well as severe left and moderate right neuroforaminal stenosis. Correlate clinically for left L5 radiculopathy. Discharge plan from [facility]: Home PT, rolling walker provided, plan for rollator to be delivered to patient's home once available from peoples patient agreeable to pay $34 cost for rollator Ultrasound duplex L LE (08/26/2016): Nonocclusive thrombus within the lower femoral vein extending to the popliteal vein. Due to limited evaluation of the area unable to distinguish whether this is acute versus chronic given history of prior DVT. Recommend obtaining a follow-up study to evaluate for clot propagation of stability. Problem list: 1. Lower extremity cellulitis 2. Chronic venous insufficiency 3. Lower extremity edema 4. Sciatica 5. History of bilateral DVT 6. Chronic kidney disease 7. Anemia 8. Obesity Plan: Lower extremity cellulitis * Since admission the patient has been afebrile, resolution of leukocytosis after 48 hours. Blood cultures no growth to date * Unasyn 3 g IV Q6 completed 12 doses (day #3) and transitioning to Augmentin 875 mg PO BID to complete a total course of 7 days * Continue with leg elevation and daily wound dressing Chronic venous insufficiency leading to edema * Leg elevation, daily dressing changes * Patient may benefit from PRN furosemide for symptomatic control of lower extremity edema * ProBNP WNL. Follow-up echocardiogram to assess for LVEF and valvular function. We will assess the need for PRN lasix * Wound consult today for follow-up recommendation Sciatica * Left thigh/pelvic pain is improved at this time * Pain management: Vicodin 1 tab PO Q4-6PRN, gabapentin 100 mg PO TID and lidocaine patch * Will ensure patient has all necessary equipment arranged from [facility] at home prior to discharge H/O bilateral DVT * Continue on Xarelto Chronic kidney disease * Stable at this time Anemia * Normocytic while on ferrous sulphate 325mg TID. 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 Cellulitis of leg 2. Leg edema 3. Sciatica 4. History of DVT (deep vein thrombosis) 5. CKD (chronic kidney disease) 6. Obesity Pain Ratin Pain Location: Left lower back, left thigh Pain Goal: Pain 4 or less Pain Plan: Vicodin Gabapentin Lidoderm patch Tomorrow's Labs & Rationales: Noone required DVT/Prophylaxis: pharmacological Discharge Plan Discharge Disposition: home Stable for Discharge? No Anticipated Discharge (Day): tomorrow If Discharged Today/In 24 Hrs: enter ant discharge ord, W-10/discharge paper done, DC summary done, CMR done ADRIENNE ESCOBAR,NGUYEN 09/21/16 1208: Attending MD Review Statement Attending Statement Attending MD Statement: examined this patient, discuss w/resident/PA/NIGHT ASSISTANT, agreed w/resident/PA/NIGHT ASSISTANT, reviewed EMR data (avail), discussed with nursing, reviewed images Attending Assessment/Plan: Overall patient appears to be doing better with leg elevation and when necessary Lasix. He is on IV Unasyn and I think we can safely switch him to by mouth Augmentin to finish a seven-day course for the cellulitis in a patient with obesity and chronic venous stasis with a history of bilateral DVT on Xarelto. He has stage 2-3 CKD and will need to watch his creatinine closely and follow- up. We need to get records of the MRI done for his back pain and may need to titrate his pain medication such that he takes more by mouth and less IV when necessary. We also are going to discuss with him options of long acting opiates.
--- NOTE | 2016-09-21 08:20 | Cons- Wound Care ---
General Information and HPI Consulting Request Date of Consult: 09/21/16 Requested By: IVELISSE TONY MD Reason for Consult: Right lower extremity venous stasis ulcers present on admission History of Present Illness: Patient is 51-year-old with chronic venous stasis ulcers. He developed severe back pain requiring admission to [facility] and has been unable to sleep in bed or elevate his legs. He's had marked deterioration in his venous stasis ulcers with marked drainage maceration and erythema. Having failed outpatient management and in need of more aggressive pain control recommendation was made for admission Allergies/Medications Allergies: Coded Allergies: NO KNOWN ALLERGIES (02/05/16) Home Med List: FLUOXETINE HCL (Fluoxetine HCl) 20 MG CAPSULE 1 CAP PO DAILY DEPRESSION ( Reported) Oxycodone HCl/Acetaminophen (Oxycodone-Acetaminophen 5-325) 5 MG-325 MG TABLET 5 PAIN CONTROL (Reported) Rivaroxaban (Xarelto) 15 MG TABLET 15 BLOOD THINNER (Reported) Review of Systems Review of Systems: He denies history of claudication Past History Travel History Traveled to [place] past 21 day No Medical History Blood Transfusion Hx: No Neurological: NONE EENT: NONE Cardiovascular: NONE Respiratory: NONE Gastrointestinal: NONE Hepatic: NONE Renal: NONE Musculoskeletal: disk herniation Psychiatric: NONE Endocrine: obesity, borderline dm Blood Disorders: DVT Cancer(s): NONE Surgical History Surgical History: Debridement and skin graft of LE Family History Relations & Conditions If Any: FATHER (Hypertension and heart disease). MOTHER (Hypertension). Psychosocial History Services at Home: Nursing Smoking Status: Unknown If Ever Smoked ETOH Use: denies use Illicit Drug Use: denies illicit drug use Exam & Diagnostic Data Vital Signs and I&O Vital Signs Result Date Time Pulse Ox 96 09/21 0647 B/P 120/80 09/21 0647 O2 Delivery Room Air 09/21 06 Temp 97.6 09/21 0647 Pulse 92 09/21 0647 Resp 20 09/21 0647 O2 Flow Rate Room Air 09/19 0000 Intake & Output 09/21 0000 09/20 1600 09/20 0800 Intake Total 340 450 200 Output Total 900 580 Balance -560 -130 200 Intake, IV 150 200 Intake, Oral 340 300 Output, Urine 900 580 Exam of his right lower extremity shows the amount of drainage to have diminished with bedrest and more effective elevation many of the superficial ulcers appear to have improved the erythema has diminished. Assessment/Plan Impression/Plan: 51-year-old with long-standing chronic venous insufficiency is had marked deterioration secondary to back pain and inability to elevate. Lower extremity ulcers appear improved with bedrest leg elevation pain control and antibiotics. If cultures remain negative antibiotics can be discontinued. We'll need to establish effective outpatient pain control. Depending on wound progress discharge home or to short-term rehabilitation. For now recommend aggressive wound healing maximum leg elevation and wound care with Xeroform and gauze. Cleanse daily with soap and water Consult Acknowledgment - Thank you for your consult request.
[2016-09-21 08:44] LABS: ABSOLUTE BASOPHIL COUNT 0 /CUMM (0.0-0.2); ABSOLUTE EOSINOPHIL COUNT 0.3 /CUMM (0.0-0.7); ABSOLUTE GRANULOCYTE CT 5.1 /CUMM (1.4-6.5); ABSOLUTE LYMPH COUNT 1.6 /CUMM (1.2-3.4); ABSOLUTE MONOCYTE COUNT 0.6 /CUMM (0.10-0.60); BASOPHIL % 0.4 % (0.0-2.0); EOSINOPHIL % 3.3 % (0-5); GRANULOCYTE % 66.8 % (42.2-75.2); MEAN CORPUSCULAR HGB 29.7 PG (27.0-31.0); MEAN CORPUSCULAR HGB CONC 33.5 G/DL (33.0-37.0); MEAN CORPUSCULAR VOLUME 88.7 FL (80.0-94.0); MEAN PLATELET VOLUME 7.8 FL (7.4-10.4); PLATELET COUNT 267 /CUMM (130-400); RBC DISTRIBUTION WIDTH 15.9 % (11.5-14.5); RED BLOOD CELL CT 3.51 /CUMM (4.70-6.10); WHITE BLOOD CELL COUNT 7.7 /CUMM (4.8-10.8)
--- NOTE | 2016-09-21 09:54 | Discharge Summary ---
Visit Information Visit Dates Admission Date: 09/18/16 Discharge Date: 09/22/2016 Hospital Course Course Attending Physician: IVELISSE TONY MD Primary Care Physician: RONALD NOLASCO MD Hospital Course: 51-year-old gentleman with a PMH of chronic venous stasis for multiple years complicated with nonhealing ulcers for which he has undergone multiple debridements, I&D, splenic thickness skin graft, cellulitis with skin cultures positive for MRSA (2007), Pseudomonas, Proteus and MSSA, bilateral lower extremity DVT, ?? Factor V Leyden deficiency, history of GI bleed secondary to hemorrhoids, anemia, CKD and depression. Patient presents with complaints of one-month duration lower extremity swelling, redness and weeping. He reports injuring his back approximately one month ago while moving a total gym at home, followed up at [facility] and reports MRI of the lumbar region showing disc herniation. Despite steroids and Percocets he reports persistent low back and left thigh pain limiting his ability to lay or sit down and keep his legs elevated which has conjugated to the lower extremity leg swelling, weeping. Records from [facility]: ED visit (08/26/2016): Presented with with left gluteal pain radiating down left leg after packing "Total Gym "in a box. No relief with tramadol and methylprednisolone. PE positive for pain with palpation of the L gluteal area, positive L straight leg raise. MRI spine (08/26/2016): Multilevel degenerative changes most prominent at L4-L5 where there is a disc bulge and superimposed L central/paracentral disc extrusion resulting in moderate to severe spinal canal stenosis as well as severe left and moderate right neuroforaminal stenosis. Correlate clinically for left L5 radiculopathy. Discharge plan from [facility]: Home PT, rolling walker provided, plan for rollator to be delivered to patient's home once available from peoples patient agreeable to pay $34 cost for rollator Ultrasound duplex L LE (08/26/2016): Nonocclusive thrombus within the lower femoral vein extending to the popliteal vein. Due to limited evaluation of the area unable to distinguish whether this is acute versus chronic given history of prior DVT. Recommend obtaining a follow-up study to evaluate for clot propagation of stability. VS on admission: BP 113/69, HR 93, RR 20, SPO2 97% on RA, T 98.6 Pertinent labs on admission: WBC 12.9, H&H 12.3/36.6, platelets 318, sodium 141, potassium 4.9, chloride 111, BUN/CR 33/1.5 Lactic acid: 1.2 The patient was admitted to the general medicine floor for management of following problems: 1. Lower extremity cellulitis 2. Chronic venous insufficiency 3. Lower extremity edema 4. Sciatica 5. History of bilateral DVT 6. Chronic kidney disease 7. Anemia 8. Obesity Hospital course: Lower extremity cellulitis with history of chronic venous insufficiency/edema * Since admission the patient has been afebrile, resolution of leukocytosis after 48 hours. Blood cultures no growth to date * Patient completed 3 days of Unasyn 3 g IV Q6. Blood cultures remain negative. Transition him to Augmentin 875 mg PO BID to complete a total course of 7 days * Continue with leg elevation and daily wound dressing * Patient may benefit in the future from PRN furosemide for symptomatic control of lower extremity edema * ProBNP WNL. Echocardiogram (09/21/2016) with LVEF > 65% * Wound and LE edema management: aggressive wound healing with maximum leg elevation and wound care with Xeroform and gauze. Cleanse daily with soap and water Sciatica * MRI of lumbar spine done on 08/26/2016 at [facility] results indicated above * Left thigh/pelvic pain improved at this time * Pain management: Vicodin 2 tabs PO Q4-6PRN, gabapentin 100 mg PO BID, 300 QHS and lidocaine patch. Plan to discharge to rehabilitation History of DVT: * Ultrasound results as indicated above * Stable at this time. We'll continue the patient on current dose of Xarelto * Patient will benefit from outpatient repeat ultrasound in a few months to assess stability/progression Chronic kidney disease (stage III) * Remained relatively stable throughout hospital course * At discharge, BUN/CR 33/1.3 Iron deficiency anemia: * Likely secondary to chronic kidney disease * Iron studies: TIBC 230, iron 44, ferritin 73.4 * Continue with her sulfate supplementation Obesity with prediabetes: * HgA1C 6.0. Stable over the past 2 years. Advised patient on healthy diet choices including more fruits, vegetables, fiber and low fat diet Allergies: Coded Allergies: NO KNOWN ALLERGIES (UNKNOWN 09/21/16) Disposition Summary Disposition Principal Diagnosis: Cellulitis of lower extremities Additional Diagnosis: Chronic venous insufficiency Lower extremity edema Sciatica History of bilateral DVT Chronic kidney disease Iron deficiency Anemia Obesity Discharge Disposition: SNF Discharge Instructions General Discharge Information Code Status: Full Code Patient's Diet: Heart healthy Patient's Activity: As tolerated Follow-Up Instructions/Appts: Please follow-up with your PCP within 1-2 weeks after discharge. Please follow-up with your wound care center as directed. Please take all medications as directed Medications at Discharge Discharge Medications: Stop taking the following medications: Oxycodone HCl/Acetaminophen (Oxycodone-Acetaminophen 5-325) 5 MG-325 MG TABLET Qty = 9 Continue taking these medications: FLUOXETINE HCL (Fluoxetine HCl) 20 MG CAPSULE 1 Capsule ORAL DAILY Qty = 30 Comments: Last Taken: 12/19/13 Time: 0930 Rivaroxaban (Xarelto) 15 MG TABLET 15 Qty = 30 Start taking the following new medications: Hydrocodone/Acetaminophen (Hydrocodon-Acetaminophen 5-325) 5 MG-325 MG TABLET 2 Tablet ORAL EVERY 4-6 HOURS as needed for Back pain Qty = 60 No Refills Amoxicillin/Clavulanate Potass (Amox-Clav 875-125 MG Tablet) 875 MG-125 MG TABLET 1 Tablet ORAL EVERY 12 HOURS Qty = 6 No Refills Gabapentin (Gabapentin) 100 MG CAPSULE 1 Tablet ORAL 0600,1400 Days = 30 No Refills Polyethylene Glycol 3350 (Miralax) 17 GRAM/DOSE POWDER 1 Packet ORAL AT BEDTIME as needed for Contipation Days = 28 No Refills Instructions: Please take to maintain 1 bowel movement per day Sennosides/Docusate Sodium (Senna Plus Tablet) 8.6 MG-50 MG TABLET 1 Tablet ORAL AT BEDTIME as needed for Constipation Days = 28 No Refills Instructions: Please take to maintain one bowel movement per day Lidocaine (Lidoderm) 5 % ADH..PATCH 1 Patch ON SKIN DAILY as needed for Back pain Days = 28 No Refills Gabapentin (Gabapentin) 300 MG CAPSULE 1 Capsule ORAL AT BEDTIME Days = 30 No Refills Copies To: NANO ESCOBAR,EDIL NOLASCO MD,RONALD Garcia
[2016-09-21 10:29] LABS: HEMATOCRIT 31.1 % (42-52)
[2016-09-21 14:41] VITALS: BP 122/80
[2016-09-21] MEDS ORDERED: AMOX-CLAV 875-1 EACH PO (16:05)
[2016-09-21] MEDS ORDERED: SENNA PLUS TAB1 EACH PO (16:05)
[2016-09-21] MEDS ORDERED: LIDODERM1 EACH EXT (16:05)
[2016-09-21] MEDS ORDERED: MIRALAX119 GM PO (16:05)
[2016-09-21] MEDS ORDERED: GABAPENTIN100 M2 PO (16:05)
[2016-09-21] MEDS ORDERED: HYDROCODON-ACE1 EAC2 PO (16:08)
[2016-09-21] MEDS ORDERED: GABAPENTIN300 M2 PO (16:08)
--- NOTE | 2016-09-21 16:15 | Patient Discharge Instructions ---
Discharge Instructions General Discharge Information You were seen/treated for: Lower extremity cellulitis Sciatica Watch for these problems: Worsening pain in the back or leg New-onset weakness or numbness Difficulty with urination or constipation Worsening redness or swelling of the legs Fevers or chills Special Instructions: Please take all medications as directed. Please follow-up with your PCP within 1-2 weeks after discharge. Please follow-up with the wound center as directed. Diet Recommended Diet: Heart Healthy Activity Activity Self Limited: Yes Acute Coronary Syndrome Inclusion Criteria At DC or during hospital stay patient has or had the following: ACS DIAGNOSIS No Discharge Core Measures Meds if any: Prescribed or Continued at Discharge Meds if any: NOT Prescribed or Continued at Discharge Congestive Heart Failure Inclusion Criteria At DC or during hospital stay patient has or had the following: CHF DIAGNOSIS No Discharge Core Measures Meds if any: Prescribed or Continued at Discharge Meds if any: NOT Prescribed or Continued at Discharge Cerebrovascular accident Inclusion Criteria At DC or during hospital stay patient has or had the following: CVA/TIA Diagnosis No Discharge Core Measures Meds if any: Prescribed or Continued at Discharge Meds if any: NOT Prescribed or Continued at Discharge Venous thromboembolism Inclusion Criteria VTE Diagnosis No VTE Type NONE VTE Confirmed by (Test) NONE Discharge Core Measures - Per Current guidelines, there needs to be overlap - treatment for the first 5 days of Warfarin therapy. - If discharged on Warfarin prior to 5 days of - overlap therapy, the patient will need to be - assessed for post discharge needs including - *Post discharge parental anticoagulation - *Warfarin and/or parental anticoagulation education - *Follow up date to check INR post discharge At least 5 days overlap therapy as Inpatient No Meds if any: Prescribed or Continued at Discharge Note: Overlap Therapy is Warfarin and Anticoagulant Meds if any: NOT Prescribed or Continued at Discharge
--- NOTE | 2016-09-21 18:40 | ECHOCARDIOGRAM REPORT ---
DINO VIEYRA Age: 51 : 1965 Gender: M Exam Date: 09/21/2016 14:55 Exam Location: [address] [place] [address] Ht (in): 68 Wt (lb): 200 BSA: 2.11 BP: 120 / 80 Ordering Physician: ARCELIA APARICIO MD Referring Physician: ARCELIA APARIICO MD Technologist: Bessie Mitchell [facility] Room Number: [id number] Indications: SHORTNESS OF BREATH Rhythm: Sinus Technical Quality: Good FINDINGS Left Ventricle Normal size left ventricle. Mild concentric left ventricular hypertrophy. Normal left ventricular ejection fraction visually estimated at >65 %. Normal left ventricular diastolic filling pattern for age. Right Ventricle The right ventricle is normal in size and function. Right Atrium The right atrium is normal in size. Left Atrium The left atrium is normal in size. The interatrial septum is intact. Mitral Valve The mitral valve is normal in structure and function. There is trace mitral regurgitation. Aortic Valve Structurally normal aortic valve without significant sclerosis or stenosis. There is no aortic regurgitation. Tricuspid Valve The tricuspid valve is normal in structure and function. There is mild tricuspid regurgitation. Pulmonary artery systolic pressure is normal. Pulmonic Valve Structurally normal pulmonic valve. There is no pulmonic regurgitation. Pericardium Normal pericardium without effusion. No pleural effusion. Great Vessels Normal aortic root dimension. The aortic arch and great vessels are well seen and are normal. CONCLUSIONS Mild concentric left ventricular hypertrophy. Normal left ventricular ejection fraction visually estimated at >65 The left atrium is normal in size. No significant valve abnormalities. Physiologic valvular regurgitation. Pulmonary artery systolic pressure is normal. Ramon Vasquez M.D. (Electronically Signed) Final Date: 21 Sep 2016 18:40 MEASUREMENTS (Male / Female) Normal Values 2D ECHO LV Diastolic Diameter PLAX 5.0 cm 4.2 - 5.9 / 3.9 - 5.3 cm LV Systolic Diameter PLAX 3.2 cm 2.1 - 4.0 cm LV Fractional Shortening PLAX 36.0 % 25 - 46 % LV Ejection Fraction 2D Teich 65.4 % IVS Diastolic Thickness 1.3 cm LVPW Diastolic Thickness 1.2 cm LV Relative Wall Thickness 0.5 RV Internal Dim ED PLAX 2.8 cm 1.9 - 3.8 cm LVOT Diameter 2.2 cm Aortic Root Diameter 2.9 cm LA Systolic Diameter LX 4.0 cm 3.0 - 4.0 / 2.7 - 3.8 cm LA Volume 32.0 cm 18 - 58 / 22 - 52 cm Ascending Aorta Diameter 2.8 cm DOPPLER AV Peak Velocity 137.0 cm/s AV Peak Gradient 7.5 mmHg AV Mean Velocity 105.0 cm/s AV Mean Gradient 5.0 mmHg AV Velocity Time Integral 28.0 cm LVOT Peak Velocity 115.0 cm/s LVOT Peak Gradient 5.3 mmHg LVOT Mean Velocity 83.4 cm/s LVOT Mean Gradient 3.0 mmHg LVOT Velocity Time Integral 23.3 cm LVOT Stroke Volume 88.6 cm AV Area Cont Eq vti 3.2 cm AV Area Cont Eq pk 3.2 cm MV Peak Velocity 107.0 cm/s MV Peak Gradient 4.6 mmHg MV Mean Velocity 72.7 cm/s MV Mean Gradient 2.0 mmHg Mitral E Point Velocity 91.3 cm/s Mitral A Point Velocity 70.1 cm/s Mitral E to A Ratio 1.3 MV PHT Velocity 109.0 cm/s MV Deceleration [place] 385.0 cm/s MV Pressure Half Time 84.9 ms MV Area PHT 2.6 cm MV Deceleration Time 209.0 ms TR Peak Velocity 208.0 cm/s TR Peak Gradient 17.3 mmHg Right Atrial Pressure 5.0 mmHg Pulmonary Artery Systolic Pressu 22.3 mmHg Right Ventricular Systolic Press 22.3 mmHg PV Peak Velocity 160.0 cm/s PV Peak Gradient 10.2 mmHg PV Mean Velocity 116.0 cm/s PV Mean Gradient 6.0 mmHg PV Velocity Time Integral 31.0 cm LV E' Lateral Velocity 19.0 cm/s Mitral E to LV E' Lateral Ratio 4.8 LV E' Septal Velocity 8.0 cm/s Mitral E to LV E' Septal Ratio 11.4
[2016-09-21 22:50] VITALS: BP 144/84
[2016-09-22 06:16] VITALS: BP 120/90
--- NOTE | 2016-09-22 06:29 | PN- Housestaff ---
ARCELIA APARICIO 09/22/16 0629: Subjective Follow-up For: 1. Lower extremity cellulitis 2. Chronic venous insufficiency 3. Lower extremity edema 4. Sciatica 5. Chronic kidney disease Complaints: Left groin pain with movement Subjective: Interval history: This morning Mr. Maddox reports noticeable progress with his pain. He states that while at rest he is comfortable but with physical therapy he does experience significant pain. He denies any new weakness or numbness in his lower extremity, changes in bowel/ bladder habits, fevers, chills, chest pain, shortness breath, palpitations or dizziness. Review of Systems Constitutional: Reports: see HPI. EENTM: Reports: no symptoms. Cardiovascular: Reports: no symptoms. Respiratory: Reports: no symptoms. Gastrointestinal: Reports: no symptoms. Musculoskeletal: Reports: see HPI. Objective Last 24 Hrs of Vital Signs/I&O Vital Signs Date Time Temp Pulse Resp B/P B/P Pulse O2 O2 Flow FiO2 Mean Ox Delivery Rate 09/22 0616 98.1 86 20 120/90 99 Room Air 09/21 2250 98.2 94 20 144/84 100 Room Air 09/21 1506 Room Air Room Air 09/21 1441 98.8 92 20 122/80 96 Room Air Intake & Output 09/22 1600 09/22 0800 09/22 0000 Intake Total 490 100 Output Total 750 900 Balance -260 -800 Intake, IV 10 Intake, Oral 480 100 Number 0 Bowel Movements Output, Urine 750 900 Physical Exam General Appearance: Alert, Cooperative, No Acute Distress Skin: interval improvement of service drainage in the right lower extremity. Lower extremities covering clean dressings with slight serous fluid HEENT: EOMI, Mucous Membr. moist/pink Cardiovascular: Regular Rate, Normal S1, Normal S2 Lungs: Normal Air Movement, diminished breath sounds the basilar regions Abdomen: Normal Bowel Sounds, Soft, No Tenderness Extremities: 2+ pitting edema bilateral lower extremities. Interval improvement over the past 24 hours Current Medications: Current Medications Sig/Malinda Start time Last Medication Dose Route Stop Time Status Admin Acetaminophen 650 MG Q6P PRN 09/20 1500 AC PO Acetaminophen/ 2 TAB Q4P PRN 09/22 0800 AC Hydrocodone Bitart PO Acetaminophen/ 1 TAB Q4P PRN 09/21 1200 DC 09/22 Hydrocodone Bitart PO 0533 Acetaminophen/ 1 TAB .[Q5P] PRN 09/21 1145 DC 09/21 Hydrocodone Bitart PO 09/21 1159 1143 Acetaminophen/ 1 TAB Q6P PRN 09/20 1545 DC 09/21 Hydrocodone Bitart PO 0559 Amoxicillin/ 875 MG Q12 09/21 2200 AC 09/21 Clavulanate Potassium PO 09/24 1001 2143 Ampicillin Sodium/ 3,000 MG Q6 09/18 1353 DC 09/21 Sulbactam Sodium IV 0559 Sodium Chloride 100 ML Ferrous Sulfate 325 MG BID 09/18 2200 AC 09/21 PO 2143 Fluoxetine HCl 20 MG DAILY 09/19 1000 AC 09/21 PO 1031 Gabapentin 100 MG 0600,1400 09/22 0600 AC 09/22 PO 0532 Gabapentin 300 MG 2200 09/21 2200 AC 09/21 PO 2142 Gabapentin 100 MG Q8 09/18 1730 DC 09/21 PO 1353 Lidocaine 1 PAT DAILY 09/18 1445 AC 09/21 EXT 1031 Morphine Sulfate 2 MG Q4P PRN 09/21 1200 AC 09/21 IV 1446 Morphine Sulfate 4 MG Q4P PRN 09/20 1500 DC 09/21 IV 1031 Nystatin 1 FRED TID PRN 09/19 0900 AC 09/19 TOP 2144 Ondansetron HCl 4 MG Q6P PRN 09/21 0030 AC 09/21 IV 0043 Patient Medication 1 UNIT 09/21 220 [place] 09/21 Teaching ED 09/21 220 2143 Patient Medication 1 ED .STK-MED ONE 09/21 1252 [facility] ED 09/21 1253 Patient Medication 1 UNIT ONE NR 09/21 1215 [facility] ED 09/21 1815 Polyethylene Glycol 17 GM AT BEDTIME 09/20 2200 AC 09/21 PO 2143 Rivaroxaban 15 MG 1700 09/18 1700 AC 09/21 PO 1925 Senna/Docusate Sodium 1 TAB AT BEDTIME 09/20 2200 AC 09/21 PO 2142 Last 24 Hrs of Lab/Rock Results Last 24 Hrs of Labs/Mics: Laboratory Tests 09/21/16 1530: APTT Cancelled Assessment/Plan Assessment: 51-year-old gentleman with a PMH of chronic venous stasis for multiple years complicated with nonhealing ulcers for which he has undergone multiple debridements, I&D, splenic thickness skin graft, cellulitis with skin cultures positive for MRSA (2007), Pseudomonas, Proteus and MSSA, bilateral lower extremity DVT, ?? Factor V Leyden deficiency, history of GI bleed secondary to hemorrhoids, anemia, CKD and depression. Presented with persistent cellulitis after failing outpatient antibiotic therapy , right flank pain since around a month despite various therapies. Patient reports recent injury while moving equipment at home with follow-up at [facility], with results as indicated below. Problem list: 1. Lower extremity cellulitis 2. Chronic venous insufficiency 3. Lower extremity edema 4. Sciatica 5. History of bilateral DVT 6. Chronic kidney disease 7. Anemia 8. Obesity Plan: Lower extremity cellulitis * Patient has completed Unasyn 3 g IV Q6 (day #3) and to complete Augmentin 875 mg PO BID for total course of 7 days * Continue with leg elevation and daily wound dressing with Xeroform and gauze Chronic venous insufficiency leading to edema * We'll give 1 dose of Lasix 20 mg IV today for symptomatic control * Leg elevation, daily dressing changes * Patient may benefit from PRN furosemide for symptomatic control of lower extremity edema * ProBNP WNL * Echocardiogram with LVEF > 65% Sciatica * Left thigh/pelvic pain is improved at this time * Pain management: Vicodin 2 tabs PO Q4-6PRN, gabapentin 100 mg PO BID, gabapentin 300 mg QHS and lidocaine patch * Ration reports that he does have there rollator at home to help with ambulation * We'll discuss her case management for discharge recommendations to home with physical therapy or rehabilitation H/O bilateral DVT * Continue on Xarelto Chronic kidney disease * Stable at this time Anemia * Normocytic while on ferrous sulphate 325mg TID. 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 Cellulitis 2. Leg edema 3. Sciatica 4. History of DVT (deep vein thrombosis) 5. CKD (chronic kidney disease) 6. Obesity Pain Ratin Pain Location: Left hip. lower back Pain Goal: Pain 4 or less Pain Plan: Vicodin 2 tabs PO Q4-6 Gabapentin 100 mg BID Gabapentin 300 mg QHS Lidoderm patch Tomorrow's Labs & Rationales: None required. Stable for discharge DVT/Prophylaxis: pharmacological Discharge Plan Discharge Disposition: home Stable for Discharge? Yes Anticipated Discharge (Day): today If Discharged Today/In 24 Hrs: enter [facility] discharge ord, W-10/discharge paper done, DC summary done, CMR done IVELISSE TONY MD 09/22/16 1240: Attending MD Review Statement Attending Statement Attending MD Statement: examined this patient, discuss w/resident/PA/EMPLOYMENT COACH, agreed w/resident/PA/EMPLOYMENT COACH, reviewed EMR data (avail) Attending Assessment/Plan: 51M PMH obesity, chronic venous stasis with multiple episodes of LE cellulitis with wound cultures growing mRSA (2011) and Pseudomonas (2014), Factor V Leiden, bilateral DVT in the past sent from wound care center for worsening LE edema, pain, and erythema R>L. Patient hurt his back moving something heavy a few days ago and has struggled to keep his legs elevated due to back pain. Denies fever, chills, n/v/d. Legs are edematous and erythematous R>L, no purulence but clear weepy discharge. Afebrile, WBC 12.9, labs otherwise normal. No recent trauma or exposure to legs. Patient is improving clinically. He is medically stable for transfer to rehab. His back pain is still present but improved. Plan - Leg elevation - Continue Augmentin - Would benefit from compression of lower legs as tolerated by pain - Follow wound care recommendations - Continue Lidocaine patch, Gabapentin, and Vicodin for back pain - Continue home medications
--- NOTE | 2016-09-22 08:51 | PN- Wound Care ---
Subjective Subjective: Patient feels improved with decreased pain and inability to effectively elevate his right leg Objective Vital Signs and I&Os Vital Signs Result Date Time Pulse Ox 99 09/23 615 B/P 120/90 09/23 615 O2 Delivery Room Air 09/23 615 Temp 98.1 09/23 615 Pulse 86 09/22 06 Resp 20 09/22 06 O2 Flow Rate Room Air 09/21 1506 Intake & Output 09/22 0000 09/21 1600 09/21 0800 Intake Total 100 800 Output Total 900 300 Balance -800 800 -300 Intake, IV 200 Intake, Oral 100 600 Number 1 Bowel Movements Output, Urine 900 300 Contreras of the right leg shows the drainage to be decreased there is still extensive multifocal venous stasis ulcers. Impression/Plan Impression/Plan Impression/Plan: 51-year-old with long-standing chronic venous insufficiency is had marked deterioration secondary to back pain and inability to elevate. Lower extremity ulcers appear improved with bedrest leg elevation pain control and antibiotics. If cultures remain negative antibiotics can be discontinued. We'll need to establish effective outpatient pain control. Would recommend short-term rehabilitation for aggressive wound treatment leg elevation physical therapy for chronic back pain
[2016-09-22] MEDS ORDERED: HYDROCODON-ACE1 EAC2 PO (10:01)
[2016-09-22 15:09] VITALS: BP 112/78
[2016-09-22 16:03] VITALS: BP 112/78
== END 2016-09-22 16:30 | DRG 603 ==
LOC: ERH 10:01 → ERHI 12:06 → 2NB 12:06 → ENRESERV 12:27 → ERHI 13:03 → 2NB 13:03 → ENPENDDIS 09-22 15:30 → 2NB 09-22 16:30
PROVIDERS: Internal Medicine; Physician Assistant; ADMIT Internal Medicine
DX: L03.116 Cellulitis of left lower limb (principal); D68.51 Activated protein C resistance; L97.819 Non-pressure chronic ulcer of other part of right lower leg with unspecified severity; N18.3 Chronic kidney disease, stage 3 (moderate); L97.829 Non-pressure chronic ulcer of other part of left lower leg with unspecified severity; I87.2 Venous insufficiency (chronic) (peripheral); L03.115 Cellulitis of right lower limb; I83.008 Varicose veins of unspecified lower extremity with ulcer other part of lower leg; E66.9 Obesity, unspecified; Z68.30 Body mass index [BMI] 30.0-30.9, adult; I12.9 Hypertensive chronic kidney disease with stage 1 through stage 4 chronic kidney disease, or unspecified chronic kidney disease; Z86.718 Personal history of other venous thrombosis and embolism; Z79.01 Long term (current) use of anticoagulants; F32.9 Major depressive disorder, single episode, unspecified; E11.9 Type 2 diabetes mellitus without complications; M54.40 Lumbago with sciatica, unspecified side; D63.1 Anemia in chronic kidney disease
CPT/HCPCS: 2NBP; 36415; 82436; 87040; 93005; 93010; 93306; 97110-GO; 97116-GO; 97161-GP; 97530-GO; G0463; J1940; J2270; J2405

== ENCOUNTER 2017-12-27 10:30 | Inpatient (IN) | payer OTHER ==
[~2017-12-27] VITALS: Ht 172.7 cm; Wt 130.6 kg
[~2017-12-27 10:30] MED LIST changes: +AMOX-CLAV 875-1 EACH PO; +ATORVASTATIN CA10 M1 PO; +BYSTOLIC5 M1 PO; +FLUOXETINE HCL20 M2 PO; +GABAPENTIN100 M2 PO; +GABAPENTIN300 M2 PO; +HYDROCODON-ACE1 EAC2 PO; +LIDODERM1 EACH EXT; +METOPROLOL TART25 M1 PO; +MIRALAX119 GM PO; +OXYCODONE-ACET1 EACH; +PERCOCET 5-3251 EACH PO; +SENNA PLUS TAB1 EACH PO; +XARELTO15 M2 PO
[2017-12-27 12:09] LABS: ABSOLUTE BASOPHIL COUNT 0 /CUMM (0.0-0.2); ABSOLUTE EOSINOPHIL COUNT 0 /CUMM (0.0-0.7); ABSOLUTE GRANULOCYTE CT 17.1 /CUMM (1.4-6.5); ABSOLUTE LYMPH COUNT 1.6 /CUMM (1.2-3.4); ABSOLUTE MONOCYTE COUNT 2.1 /CUMM (0.10-0.60); BASOPHIL % 0 % (0.0-2.0); EOSINOPHIL % 0.1 % (0-5); HEMATOCRIT 33.8 % (42-52); MEAN CORPUSCULAR HGB CONC 33.1 G/DL (33.0-37.0); MEAN CORPUSCULAR VOLUME 87.7 FL (80.0-94.0); MEAN PLATELET VOLUME 7.4 FL (7.4-10.4); PLATELET COUNT 302 /CUMM (130-400); RBC DISTRIBUTION WIDTH 15.7 % (11.5-14.5); RED BLOOD CELL CT 3.86 /CUMM (4.70-6.10); WHITE BLOOD CELL COUNT 20.8 /CUMM (4.8-10.8)
--- NOTE | 2017-12-27 12:18 | ED UPPER/LOWER EXTREMITY COMPL ---
History of Present Illness General Chief Complaint: General Adult Stated Complaint: SIB [facility] FOR CELLULITIS? Source: patient Exam Limitations: no limitations Vital Signs & Intake/Output Vital Signs & Intake/Output Vital Signs Date Time Temp Pulse Resp B/P B/P Pulse O2 O2 Flow FiO2 Mean Ox Delivery Rate 12/27 1423 99.2 78 18 122/65 94 Room Air 12/27 1324 99.0 80 20 131/77 100 Room Air 12/27 1157 99.0 88 107/73 12/27 1035 98.3 91 15 127/72 97 Room Air Room Air Allergies Coded Allergies: No Known Allergies (12/27/17) Reconcile Medications Atorvastatin Calcium 10 MG TABLET 1 TAB PO DAILY HEART, LIPID (Reported) Fluoxetine HCl 20 MG CAPSULE 30 MG PO DAILY DEPRESSION (Reported) Metoprolol Tartrate 25 MG TABLET 1 TAB PO DAILY HTN (Reported) Oxycodone HCl/Acetaminophen (Percocet 5-325 MG Tablet) 5 MG-325 MG TABLET 1 TAB PO Q6P PRN PAIN Rivaroxaban (Xarelto) 15 MG TABLET 15 BLOOD THINNER (Reported) Triage Note: PT SENT TO ED FROM WOUND CENTER FOR CELLULITIS OF L LEG WITH REDNESS SPREADING INTO UPPER THIGH AREA WITH CHILLS AT HOME. AFEBRILE IN TRIAGE. Triage Nurses Notes Reviewed? yes Onset: Gradual Duration: day(s): Timing: recent history Severity: moderate HPI: 52yo male with PMH of alcoholism, pre-diabetes, HTN, CKD c/o spreading rash on his left lower extremity. Pt reports that he has been going to wound care for the past 20 years and went in today for his regular dressing changes at which time he was referred here. Since wednesday, pt reports he has noticed a new rash progressing on the left knee that goes up his thigh. The rash is described as warm and painful. Patient also has red rash to groin/pannus which he reports may have been there before. Denies any numbness or tingling of lower extremity. Pt admits to some chills but denies any fevers. Pt has not taken any pain medications or tried any topicals. Pt denies increased fatigue, abdominal pain, dysuria, changes in bowel movements. Past History Travel History Traveled to [place] past 21 day No Medical History Any Pertinent Medical History? see below for history Neurological: NONE EENT: NONE Cardiovascular: NONE Respiratory: NONE Gastrointestinal: NONE Hepatic: NONE Renal: chronic kidney disease Musculoskeletal: disk herniation, Chronic bilateral lower limb ulcer, I and D several times Psychiatric: depression, Alcohol use disorder Endocrine: obesity, borderline dm Blood Disorders: DVT Cancer(s): NONE History of MRSA: Yes History of VRE: No History of CDIFF: No Surgical History Surgical History: Debridement and skin graft of LE Psychosocial History Who do you live with Patient/Self Services at Home Nursing What is your primary language Bhutanese Tobacco Use: Quit >30 days ago ETOH Use: denies use Illicit Drug Use: denies illicit drug use Family History Family History, If Any: FATHER (Hypertension and heart disease). MOTHER (Hypertension). Hx Contributory? No Review of Systems Review of Systems Constitutional: Reports: see HPI. EENTM: Reports: no symptoms. Respiratory: Reports: no symptoms. Cardiovascular: Reports: no symptoms. Gastrointestinal/Abdominal: Reports: no symptoms. Genitourinary: Reports: no symptoms. Musculoskeletal: Reports: no symptoms. Skin: Reports: see HPI. Neurological/Psychological: Reports: no symptoms. Hematologic/Endocrine: Reports: no symptoms. Immunological: Reports: no symptoms. All Other Systems: Reviewed and Negative Physical Exam Physical Exam General Appearance: no apparent distress, alert, awake, obese Head: atraumatic, normal appearance Eyes: Bilateral: normal appearance. Ears, Nose, Throat: hearing grossly normal Neck: normal inspection, supple, full range of motion Cardiovascular/Respiratory: normal breath sounds, normal peripheral pulses, regular rate/rhythm, no respiratory distress Back: normal inspection Shoulder Left: normal range of motion, normal inspection Shoulder Right: normal range of motion, normal inspection Elbow Left: normal range of motion, normal inspection Elbow Right: normal range of motion, normal inspection Hand Left: normal inspection, normal range of motion Hand Right: normal inspection, normal range of motion Leg Left: Erythema, warmth, tenderness to left leg distal and proximal to the knee with erythema spreading toward the left groin medially , not involving the testicles Leg Right: normal range of motion, normal inspection Skin: erythema, erythema without tenderness to bilateral inguinal area involving pannus Lymphatic: no anterior cervical vanessa Progress Differential Diagnosis: cellulitis, rajiv, sepsis, abscess Plan of Care: Orders Procedure Date/time Status Consistent Carbohydrate 1 12/27 D Active Patient Data 12/27 1435 Active Intake & Output 12/27 1411 Active Misc Message 12/27 1409 Active ED Holding Orders 12/27 1409 Active Admit to inpatient 12/27 1409 Active Vital Signs 12/27 1409 Active Code Status 12/27 1409 Active CULTURE,URINE 12/27 1311 Active URINALYSIS 12/27 1311 Complete EKG 12/27 1220 Active BLOOD CULTURE 12/27 1042 Active LACTIC ACID 12/27 1042 Complete COMPREHENSIVE METABOLIC PANEL 12/27 1042 Complete CBC WITHOUT DIFFERENTIAL 12/27 1042 Complete Laboratory Tests 12/27/17 1408: Urinalysis LIGHT H, Urine Color YEL, Urine Clarity CLEAR, Urine pH 6.0, Ur Specific [place] >= 1.030, Urine Protein >=300 H, Urine Ketones NEG, Urine Nitrite NEG, Urine Bilirubin NEG, Urine Urobilinogen 1.0, Ur Leukocyte Esterase NEG, Ur Microscopic SEDIMENT EXAMINED, Urine RBC 3-5, Urine WBC 1-3 H, Ur Epithelial Cells OCCAS, Urine Bacteria MOD H, Urine Hemoglobin MOD H, Urine Glucose NEG 12/27/17 1342: Lactic Acid Cancelled 12/27/17 1143: Anion Gap 13, Estimated GFR 40 L, BUN/Creatinine Ratio 15.0, Glucose 108 H, Lactic Acid 1.1, Calcium 8.9, Total Bilirubin 1.0, AST 54, ALT 60, Alkaline Phosphatase 127 H, Total Protein 7.3, Albumin 3.7, Globulin 3.6, Albumin/ Globulin Ratio 1.0 L, CBC w Diff MAN DIFF ORDERED, RBC 3.86 L, MCV 87.7, MCH 29.0, MCHC 33.1, RDW 15.7 H, MPV 7.4, Gran % 82.0 H, Lymphocytes % 7.9 L, Monocytes % 10.0 H, Eosinophils % 0.1, Basophils % 0, Absolute Granulocytes 17.1 H, Segmented Neutrophils 73, Band Neutrophils 6 H, Absolute Lymphocytes 1.6, Lymphocytes 11 L, Monocytes 9, Absolute Monocytes 2.1 H, Absolute Eosinophils 0, Basophils 1, Absolute Basophils 0, Platelet Estimate VERIFIED BY SMEAR, Anisocytosis 1+ Microbiology 12/27 1408 URINE ROUT: Urine Culture - RECD 12/27 1317 BLOOD: Blood Culture - RECD 12/27 1143 BLOOD: Blood Culture - RECD Rash to left leg is consistent with cellulitis. Rash to groin appears consistent with Rajiv. Cellulitic area is spreading from left leg medially up left thigh toward groin however does not include the testicles. Patient has a white count of 20 and declining renal function. Patient requires IV fluids, IV antibiotics, repeat labs. This patient is wheelchair bound at baseline, he has prediabetes, is immobile, obese. It is unlikely that oral antibiotics will be efficient given his spreading infection. He will clearly require multiple days of IV antibiotics. Spoke with hospitalist Dr. Millan regarding general medicine admission. Initial ED EKG: sinus rhythm @89bpm, PACs, nonspecific ST changes Prior EKG: unchanged (06/18/17) Departure Departure Disposition: STILL A PATIENT Condition: Stable Clinical Impression Primary Impression: Cellulitis Qualifiers: Site of cellulitis: extremity Site of cellulitis of extremity: lower extremity Laterality: left Qualified Code: L03.116 - Cellulitis of left lower limb Referrals: Madeline ESCOBAR,Wilder Garcia (PCP/Family) Departure Forms: Customer Survey General Discharge Information Admission Note Spoke With: Yana ESCOBAR,Radha López Documentation of Exam: Documentation of any treatments & extenuating circumstances including Concerns Regarding Discharge (functional status, medication knowledge or non-compliance, living conditions, etc.) that warrant an admission rather than observation: [ cellullitis with leukocytosis of 20 requiring IV antibiotics, possible ID consult, worsening renal function compared to patient's baseline requiring IV fluids, this patient has risk factors including immobility and prediabetes, will likely require mutliple days of IV antitbiocs for resolution of infection, premature discharge medically unsafe]
--- NOTE | 2017-12-27 14:21 | History & Physical ---
ViniciusArsenio 12/27/17 1421: General Information and HPI History of Present Illness: Pop Maddox is a 52 YO anxious male with a PMHx. 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 Patient states that this past Wednesday he noticed developing rash on his left lower extremity. Patient reports increasing erythema, swelling, tenderness, and pain in his left lower extremity extending from his distal tibula up to his groin area. Patient had one episode of vomiting in the ED but otherwise denies any fevers, chills, chest pain, palpitations, dizziness, and lightheadedness. Patient is a former smoker who quit more than 30 years ago. Patient denies any alcohol or illicit drug usage. Patient follows Dr. Correa (PCP). Allergies/Medications Allergies: Coded Allergies: No Known Allergies (12/27/17) Past History Travel History Traveled to [place] past 21 day No Medical History Neurological: NONE EENT: NONE Cardiovascular: NONE Respiratory: NONE Gastrointestinal: NONE Hepatic: NONE Renal: chronic kidney disease Musculoskeletal: disk herniation, Chronic bilateral lower limb ulcer, I and D several times Psychiatric: depression, Alcohol use disorder Endocrine: obesity, borderline dm Blood Disorders: DVT Cancer(s): NONE History of MRSA: Yes History of VRE: No History of CDIFF: No Surgical History Surgical History: Debridement and skin graft of LE Past Family/Social History Family History Relations & Conditions if any FATHER (Hypertension and heart disease). MOTHER (Hypertension). Psychosocial History Services at Home: Nursing ETOH Use: denies use Illicit Drug Use: denies illicit drug use Functional Ability ADLs Independent: dressing, eating, toileting, bathing. Ambulation: electric wheelchair Review of Systems Review of Systems Constitutional: Reports: malaise. Denies: chills, fever, weakness. Cardiovascular: Reports: edema, peripheral edema. Denies: chest pain, palpitations. Respiratory: Denies: cough, orthopnea, short of breath. GI: Reports: nausea, vomiting. Denies: abdominal pain, diarrhea, changes in stool. Genitourinary: Denies: dysuria. Musculoskeletal: Denies: joint pain. Skin: Reports: change in skin color, erythema, lesions, rash. Neurological/Psychological: Reports: anxiety. Exam & Diagnostic Data Last 24 Hrs of Vital Signs/I&O Vital Signs Date Time Temp Pulse Resp B/P B/P Pulse O2 O2 Flow FiO2 Mean Ox Delivery Rate 12/27 1530 98.2 88 18 140/77 99 12/27 1502 97.2 80 18 122/62 96 Room Air 12/27 1423 99.2 78 18 122/65 94 Room Air 12/27 1324 99.0 80 20 131/77 100 Room Air 12/27 1157 99.0 88 107/73 12/27 1035 98.3 91 15 127/72 97 Room Air Room Air Intake & Output 12/27 1600 12/27 0800 12/27 0000 Intake Total 1100 Output Total Balance 1100 Intake, IV 1100 Patient 301 lb Weight Weight Reported by Patient Measurement Method Physical Exam General Appearance Alert, Oriented X3, Cooperative, Moderate Distress Skin erythematous and swollen left leg extending from the distal extremity and extending to the pannus Skin Temp/Moisture Exam: Warm/Dry HEENT Atraumatic Neck Supple, No JVD Cardiovascular Regular Rate, Normal S1, Normal S2 Lungs Clear to Auscultation Abdomen Soft, No Tenderness Neurological Normal Speech Extremities left lower extremity erythematous, patchy lesion extending from groin area to distal left tibula Assessment/Plan Assessment: CT LOWER EXT WO IV CONTRAST - 1. There is some stranding, edema, in the subcutaneous tissue throughout the leg. There is no focal fluid collection, abscess or air collection. 2. No acute osseous abnormality of the left lower extremity. Stable chronic periosteal reaction of venous stasis of the fibula. 3. Lymphadenopathy in the groin and in the pelvis. 4. 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 5. Atherosclerotic vascular calcifications of the iliac vessels. On admission: T-max 99.2, heart rate: 80s, respiration rate 18-20, blood pressure 122/62, saturating between 94-100% on room air Labs: WBC 20.8; H/H 11.2/33.8; BUN 27, Cr 1.8 (last in Jun 1.5) Etiology in this case with a presentation of left lower extremity erythema, swelling, and tenderness without any fevers or chills in a patient with a history of chronic venous stasis with nonhealing ulcers status post multiple debridements is likely related to a developing Cellulitis infection. Differential diagnosis also includes Necrotizing Fasciitis, Deep vein thrombosis , Contact dermatitis, Lymphedema, and Superficial thrombophlebitis. #Cellulitis, left lower extremity with nonhealing ulcers - Admitted to general medicine for management and observation of vitals - Continue IV Unasyn 3 mg every 8 hours; await culture results for change in antibiotic regimen - F/u blood cultures - Left leg elevation per ID rec. - Wound care evaluation for nonhealing ulcers #Acute kidney injury - Cr 1.8, previous Cr 1.2 and 1.5 (06/27) - IV fluid hydration D5 1/2 NS 75 cc/hr - Monitor I&Os - Avoid nephrotoxic agents including NSAIDs #Home medications -Continue home medications as required DVT PPx. FC As Ranked By This Provider Problem List: 1. Cellulitis Core Measures/Misc (01/24) Acute Coronary Syndrome ACS Diagnosis: No Congestive Heart Failure Congestive Heart Failure Diagnosis No Cerebrovascular Accident CVA/TIA Diagnosis: No VTE (View Protocol) VTE Risk Factors Acute Medical Illness No Mechanical VTE Prophylaxis d/t N/A MechProphylax Ordered No VTE Pharm Prophylaxis d/t NA PharmProphylax ordered Sepsis (View protocol) Sepsis Present: No If YES complete Sepsis Event Note If YES complete Sepsis Event Note Comfort Phillips MD 12/27/17 9500: General Information and HPI Allergies/Medications Home Med list Atorvastatin Calcium 10 MG TABLET 1 TAB PO DAILY HEART HEALTH (Reported) Fluoxetine HCl (Prozac) 20 MG CAPSULE 30 MG PO DAILY MENTAL HEALTH (Reported) Gabapentin 300 MG CAPSULE 900 MG PO Q8P PRN ANXIETY Rivaroxaban (Xarelto) 15 MG TABLET 1 TAB PO DAILY DVT (Reported) Trazodone HCl 50 MG TABLET 1 TAB PO QPM SLEEP (Reported) Core Measures/Misc (01/24) Sepsis (View protocol) If YES complete Sepsis Event Note If YES complete Sepsis Event Note Resident Review Statement Other Findings: Patient is 52-year-old male with past medical history of chronic venous stasis with nonhealing ulcers status post multiple debridements, skin graft, history of cellulitis with MRSA, Pseudomonas, Proteus, MSSA, history of factor V Leiden deficiency, history of DVTs of both lower extremities currently on rivaroxaban and with IVC filter, history of GI bleed secondary to hemorrhoids, anemia, chronic kidney disease, depression, anxiety presenting to the [place] ED after being sent in by the wound care for concern of cellulitis of his left lower extremity. Patient reports that that he has had left lower extremity pain and redness which he believes started 2 days prior to admission. Reports today he had gone to the wound care center for management of his lower extremity nonhealing ulcers at which point he was advised to come to the ED for further evaluation and management. Patient reports increased pain and swelling in the left leg. Reports that he has been having chills. Denies any fever, nausea. Patient immediately prior to examination had an episode of nonbloody emesis. Patient reports that when he is nervous he sometimes vomits. Denies any abdominal pain, constipation/diarrhea, shortness of breath, chest pain, dysuria/hematuria. Medications: Patient is currently taking atorvastatin 10 mg, fluoxetine 30 mg daily, metoprolol 25 mg daily, Xarelto 15 mg daily. Reports no allergies. On admission: T-max 99.2, heart rate: 80s, respiration rate 18-20, blood pressure 122/62, saturating between 94-100% on room air Physical exam: General: Patient in mild distress after episode of emesis HEENT: Atraumatic, extraocular movements intact, moist mucosal membranes CVS: Regular rate and rhythm Lungs: Normal respiration Abdomen: Soft, nontender, nondistended Extremities: Left lower extremity erythema extending from knee to hip, tense, tender to palpation, warm to touch, bilateral lower extremity ulcers currently wrapped in Kerlix, palpable lower extremity pulses Labs: WBC 20.8 with 82% granulocytes and 6 bands, H&H 11.2 and 33.8, platelet count 302, sodium 138, potassium 4.6, bicarb 104, CO2 21, anion gap 13, BUN 27, creatinine 1.8 (previous in 05.17), glucose 108, lactic acid 1.1, AST 54, ALT 60, alk phos 127 Imaging: Lower extremity CT without contrast Impression: 1. There is some stranding, edema, in the subcutaneous tissue throughout the leg. There is no focal fluid collection, abscess or air collection. 2. No acute osseous abnormality of the left lower extremity. Stable chronic periosteal reaction of venous stasis of the fibula. 3. Lymphadenopathy in the groin and in the pelvis. 4. 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 5. Atherosclerotic vascular calcifications of the iliac vessels. Patient is a 52-year-old morbidly obese male with past medical history significant for chronic lower extremity insufficiency, chronic nonhealing ulcers , recurrent cellulitis, multiple debridements and skin grafts, 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 Patient was hemodynamically stable on admission. CT was negative for any evidence of necrotizing fasciitis. Patient was evaluated by infectious disease. And he was continued on IV Unasyn. Patient is currently admitted to the general medicine floor for management of the followin. Left lower extremity cellulitis and lymphangitis with lower extremity nonhealing ulcers -Continue IV Unasyn 3 mg every 8 hours -Follow-up blood cultures -Keep leg elevated -Continue to monitor vitals every shift -Wound care for nonhealing ulcers -Repeat CBC in the morning 2. Acute kidney injury -IV fluid hydration -Monitor ins and outs -Avoid nephrotoxic agents including NSAIDs 3. Chronic conditions: History of DVTs, anxiety, -Continue rivaroxaban daily -Continue fluoxetine -Continue metoprolol -Continue atorvastatin DVT prophylaxis: Alps, rivaroxaban Diet: Heart healthy Code: Full code William Colon MD 12/27/17 2122: Core Measures/Misc (01/24) Sepsis (View protocol) If YES complete Sepsis Event Note If YES complete Sepsis Event Note Attending MD Review Statement Attending Statement Attending MD Statement: examined this patient, discuss w/resident/PA/DINKEY LOCOMOTIVE OPERATOR, agreed w/resident/PA/DINKEY LOCOMOTIVE OPERATOR, reviewed EMR data (avail), reviewed images, amended to note Attending Assessment/Plan: The patient is a 52 yo male with h/o pre-diabetes, HTN, hyperlipidemia, depression, chronic pain, CKD, bilateral lower extremity stasis ulcerations ( followed by wound care) who presented in the ED after being referred from wound care with rapidly progressing erythematous areas extending from his lower left leg to thigh, groin and abdominal wall with tenderness, & warmth. He did note some chills without fever. Denied any dyspnea, chest pain, abdominal pain (other than abdominal wall pain). He did have a cough and gagged/vomited in the ED just prior to being examined by the medical team. Physical Exam: VS: T 99.2, P 89, R 18, BP 122/65, PO 97-100% RA HEENT: eyes- PERRLA, EOMI sarah- moist mucosa, no lesions Neck: no adenopathy, JVD, bruits Chest: diminished breath sounds at bases, clear Cor: RRR nl S1, S2 w/o murm Abd: BS+, soft, + tender rash left lower abdomen under pannus Ext: 1+ edema bilateral LE with distal pre-tibial ulcerations, pulses 2+; + left inguinal nodes palpable Derm: + erythematous patches extending along medial left leg to thigh extending to pubic region and into lower abdomen under pannus- warm w/o purulence, + moderate tenderness and difficult to asses crepitus, however none obviously present Labs/Tests- as above. CT of lower abdomen/groin w/o air Impression/Plan: #Cellulitis LLE extending to groin and abdomen- rapid progression as per patient. Concern regarding virulent strep/early fasciitis. No crepitus, no gas seen on CT. No purulence noted. The patient does have h/o MRSA in distant past and other polymicrobial infections of stasis ulcers in past. Has leukocytosis, however no clinical sepsis picture. Plan: Will admit to medical floor. ID consult appreciated- will continue Unasyn begun in ED. Follow progression of cellulitis closely. #CKD/ISA- patient with baseline CKD stage 3 (Cr 1.5) now 1.8. May be related to slight volume depletion. Plan: Gentle IV hydration. Will follow [facility] tomorrow. #Essential Hypertension- on Metoprolol. Plan: Continue Metoprolol. #Hyperlipidemia- on Atorvastatin. Plan: Continue Atorvastatin. #Depression- on Fluoxetine. Plan: Continue Fluoxetine.
--- NOTE | 2017-12-27 17:51 | CT SCAN REPORT ---
EXAMINATION: CT LOWER EXTREMITY WITHOUT CONTRAST, LEFT LEG CLINICAL INFORMATION: Erythema. Edema. COMPARISON: CT of the left lower extremity 08/22/2012. TECHNIQUE: Axial images obtained from the pelvis through the foot of the left lower extremity. Coronal and sagittal reformatted images are performed at the CT scanner. DLP: 4139.55 mGy-cm FINDINGS: There is no fracture. There is no focal bone lesion of the lower extremity. There is stable chronic periosteal reaction of the fibula consistent with chronic venous stasis. This is unchanged since CAT scan of 08/23/2012. The hip joint, knee joint, ankle joint and the joints of the foot are all normal. There is degenerative spondylosis of the lower lumbar spine with disc height narrowing and endplate spurring of the vertebrae. There are multiple lymph nodes in the left groin measuring up to a diameter of about 2 cm with subtle edema in the surrounding fat but there is no focal fluid collection. There is a 1.5 cm lymph node in the retroperitoneum adjacent to the aortic bifurcation. There are 2 adjacent 2 cm lymph nodes in the external iliac chain in the left lower quadrant. There are smaller lymph nodes in the right external iliac chain. There is some stranding in the subcutaneous tissue throughout the leg consistent with subtle edema. Mostly this is seen around the anterior upper left leg at the lateral side of the leg. There are varices of the left lower abdominal wall and upper leg bilateral. There is no abscess. There is no air in the soft tissue. There are atherosclerotic vascular calcifications of the iliac vessels. The prostate measures 5.4 cm transverse. There is multiple diverticula of the left colon and sigmoid without diverticulitis. IMPRESSION: 1. There is some stranding, edema, in the subcutaneous tissue throughout the leg. There is no focal fluid collection, abscess or air collection. 2. No acute osseous abnormality of the left lower extremity. Stable chronic periosteal reaction of venous stasis of the fibula. 3. Lymphadenopathy in the groin and in the pelvis. 4. 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 5. Atherosclerotic vascular calcifications of the iliac vessels.
--- NOTE | 2017-12-27 17:57 | Cons- Infect Disease ---
General Information and HPI Consulting Request Date of Consult: 12/27/17 Requested By: William Colon MD Reason for Consult: Cellulitis of the left leg Source of Information: patient, old records History of Present Illness: This is a 52-year-old man with a history of venous insufficiency, chronic nonhealing ulcers of both lower extremities, with recurrent cellulitis, status post multiple debridements and skin grafts to both legs, Factor V Leiden deficiency, status post bilateral lower extremity DVT's, status post IVC filter and maintained on Xarelto, chronic kidney disease and a history of alcohol abuse admitted today after he was referred to the emergency room from the wound center with a 2 day history of pain and erythema of the left leg associated with chills. On admission he was afebrile. Laboratory data revealed a white blood cell count of 21,000, with 73 segs and 6 bands, BUN/creatinine 27 and 1.8, alkaline phosphatase 127. Urinalysis 3-5 RBC/1-3 WBCs. He was given 1 dose of Unasyn in the emergency room. Allergies/Medications Allergies: Coded Allergies: No Known Allergies (12/27/17) Home Med List: Atorvastatin Calcium 10 MG TABLET 1 TAB PO DAILY HEART, LIPID (Reported) Fluoxetine HCl 20 MG CAPSULE 30 MG PO DAILY DEPRESSION (Reported) Metoprolol Tartrate 25 MG TABLET 1 TAB PO DAILY HTN (Reported) Oxycodone HCl/Acetaminophen (Percocet 5-325 MG Tablet) 5 MG-325 MG TABLET 1 TAB PO Q6P PRN PAIN Rivaroxaban (Xarelto) 15 MG TABLET 15 BLOOD THINNER (Reported) Past History Travel History Traveled to [place] past 21 day No Medical History Neurological: NONE EENT: NONE Cardiovascular: NONE Respiratory: NONE Gastrointestinal: NONE Hepatic: NONE Renal: chronic kidney disease Musculoskeletal: disk herniation, Chronic bilateral lower limb ulcer, I and D several times Psychiatric: depression, Alcohol use disorder Endocrine: obesity, borderline dm Blood Disorders: DVT Cancer(s): NONE History of MRSA: Yes History of VRE: No History of CDIFF: No Surgical History Surgical History: Debridement and skin graft of LE Family History Relations & Conditions If Any: FATHER (Hypertension and heart disease). MOTHER (Hypertension). Psychosocial History Services at Home: Nursing ETOH Use: denies use Illicit Drug Use: denies illicit drug use Functional Ability ADLs Independent: dressing, eating, toileting, bathing. Ambulation: electric wheelchair Review of Systems Review of Systems All Other Systems: Reviewed and Negative Exam & Diagnostic Data Last 24 Hrs of Vital Signs/I&O Vital Signs Date Time Temp Pulse Resp B/P B/P Pulse O2 O2 Flow FiO2 Mean Ox Delivery Rate 12/27 1728 98.0 90 20 136/69 98 Room Air 12/27 1530 98.2 88 18 140/77 99 12/27 1502 97.2 80 18 122/62 96 Room Air 12/27 1423 99.2 78 18 122/65 94 Room Air 12/27 1324 99.0 80 20 131/77 100 Room Air 12/27 1157 99.0 88 107/73 12/27 1035 98.3 91 15 127/72 97 Room Air Room Air Intake & Output 12/27 1600 12/27 0800 12/27 0000 Intake Total 1100 Output Total Balance 1100 Intake, IV 1100 Patient 301 lb Weight Weight Reported by Patient Measurement Method Physical Exam Other Physical Findings: He is awake and alert in no acute distress. He is afebrile. Skin reveals no rash. HEENT exam is negative. Neck is supple with no adenopathy. Lungs are clear. Heart regular rhythm with no murmur. Abdomen is obese, soft, nontender with positive bowel sounds. Back no CVA tenderness. Extremities bilateral lower extremity ulcerations, left greater than right, with patches of erythema of the left leg, including the thigh, tender to palpation, particularly over the thigh; inguinal candidiasis. Neuro is without focality. Last 24 Hours of Lab Results: Laboratory Tests 12/27 12/27 1408 1342 Chemistry Lactic Acid Cancelled Urines Urinalysis LIGHT H Urine Color (YEL,AMB,STR) YEL Urine Clarity (CLEAR) CLEAR Urine pH (5.0 - 8.0) 6.0 Ur Specific [place] (1.001 - 1.035) >= 1.030 Urine Protein (NEG,<30 MG/DL) >=300 H Urine Ketones (NEG) NEG Urine Nitrite (NEG) NEG Urine Bilirubin (NEG) NEG Urine Urobilinogen (0.1 - 1.0 EU/dl) 1.0 Ur Leukocyte Esterase (NEG) NEG Ur Microscopic SEDIMENT EXAMINED Urine RBC (0 - 5 /HPF) 3-5 Urine WBC (0 - 2 /HPF) 1-3 H Ur Epithelial Cells (NONE,FEW) OCCAS Urine Bacteria (NEG/NONE) MOD H Urine Hemoglobin (NEG) MOD H Urine Glucose (N MG/DL) NEG 12/27 1143 Chemistry Sodium (137 - 145 mmol/L) 138 Potassium (3.5 - 5.1 mmol/L) 4.6 Chloride (98 - 107 mmol/L) 104 Carbon Dioxide (22 - 30 mmol/L) 21 L Anion Gap (5 - 16) 13 BUN (9 - 20 mg/dL) 27 H Creatinine (0.7 - 1.2 mg/dL) 1.8 H Estimated GFR (>60 ml/min) 40 L BUN/Creatinine Ratio (7 - 25 %) 15.0 Glucose (65 - 99 mg/dL) 108 H Lactic Acid (0.7 - 2.1 mmol/L) 1.1 Calcium (8.4 - 10.2 mg/dL) 8.9 Total Bilirubin (0.2 - 1.3 mg/dL) 1.0 AST (17 - 59 U/L) 54 ALT (21 - 72 U/L) 60 Alkaline Phosphatase (< 127 U/L) 127 H Total Protein (6.3 - 8.2 g/dL) 7.3 Albumin (3.5 - 5.0 g/dL) 3.7 Globulin (1.9 - 4.2 gm/dL) 3.6 Albumin/Globulin Ratio (1.1 - 2.2 %) 1.0 L Hematology CBC w Diff MAN DIFF ORDERED WBC (4.8 - 10.8 /CUMM) 20.8 H RBC (4.70 - 6.10 /CUMM) 3.86 L Hgb (14.0 - 18.0 G/DL) 11.2 L Hct (42 - 52 %) 33.8 L MCV (80.0 - 94.0 FL) 87.7 MCH (27.0 - 31.0 PG) 29.0 MCHC (33.0 - 37.0 G/DL) 33.1 RDW (11.5 - 14.5 %) 15.7 H Plt Count (130 - 400 /CUMM) 302 MPV (7.4 - 10.4 FL) 7.4 Gran % (42.2 - 75.2 %) 82.0 H Lymphocytes % (20.5 - 51.1 %) 7.9 L Monocytes % (1.7 - 9.3 %) 10.0 H Eosinophils % (0 - 5 %) 0.1 Basophils % (0.0 - 2.0 %) 0 Absolute Granulocytes (1.4 - 6.5 /CUMM) 17.1 H Segmented Neutrophils (42.2 - 75.2 %) 73 Band Neutrophils (0.0 - 5.0 %) 6 H Absolute Lymphocytes (1.2 - 3.4 /CUMM) 1.6 Lymphocytes (20.5 - 51.1 %) 11 L Monocytes (1.7 - 9.3 %) 9 Absolute Monocytes (0.10 - 0.60 /CUMM) 2.1 H Absolute Eosinophils (0.0 - 0.7 /CUMM) 0 Basophils (0.0 - 2.0 %) 1 Absolute Basophils (0.0 - 0.2 /CUMM) 0 Platelet Estimate (ADEQUATE) VERIFIED BY SMEAR Anisocytosis 1+ Last 24 Hours of Rock Results: Blood cultures 2 December 27 pending Urine culture December 27 pending Assessment/Plan Assessment/Plan Impression: This is a 52-year-old man with a history of venous insufficiency, chronic nonhealing ulcers of both lower extremities, with recurrent cellulitis, status post multiple debridements and skin grafts to both legs, admitted today with a 2 day history of pain and erythema of the left leg associated with chills, found to be afebrile with a leukocytosis. His clinical presentation is consistent with a cellulitis and lymphangitis of the left lower extremity. There is no crepitus to suggest a necrotizing fasciitis and no history to suggest that this infection is rapidly progressing. Previous superficial cultures have grown multiple organisms, but these are of unclear significance as they likely represent colonization. The most likely pathogen is a beta-hemolytic strep, particularly given the lymphangitis, and antibiotics should be directed primarily against this group of organisms. He does have evidence of inguinal candidiasis, which can also be treated. Suggestion: 1. Elevation of the left leg 2. Nystatin powder to the groin and any other areas affected by candidiasis 3. Continue Unasyn 3 g IV every 8 hours Consult Acknowledgment - Thank you for your consult request.
--- NOTE | 2017-12-27 21:04 | Discharge Summary ---
Visit Information Visit Dates Admission Date: 12/27/17 Hospital Course Course Attending Physician: William Colon MD Primary Care Physician: aMdeline ESCOBAR,Wilder Garcia Hospital Course: 52-year-old male with past medical history of chronic venous stasis with nonhealing ulcers status post multiple debridements, skin graft, history of cellulitis with MRSA, Pseudomonas, Proteus, MSSA, history of factor V Leiden deficiency, history of DVTs of both lower extremities currently on rivaroxaban and with IVC filter, history of GI bleed secondary to hemorrhoids, anemia, chronic kidney disease, depression, anxiety presenting to the [place] ED after being sent in by the wound care for concern of cellulitis of his left lower extremity. 1. Cellulitis, left lower extremity with nonhealing ulcers - Admitted to general medicine for management and observation of vitals - Started IV Unasyn 3 mg every 8 hours and subsequently changed to every 6 hours with improvement in renal function - Blood cultures; no growth - Left leg elevation per ID recommendation - Wound care evaluation & management: excisonal debridement of left leg due to cellulitis infection 2. Acute kidney injury - Cr 1.3 today, improving renal function - IV fluid hydration D5 / NS 75 cc/hr - Monitor I&Os - Avoid nephrotoxic agents including NSAIDs Allergies: Coded Allergies: No Known Allergies (12/27/17) Significant Procedures: CT LOWER EXT WO IV CONTRAST - 12/31 - Progressive skin thickening and reticulation of the soft tissues of the left lower extremity in keeping with reported cellulitis. No discrete peripherally enhancing fluid collections to suggest underlying abscess. Muscular flat planes remain preserved. There is no soft tissue gas. - There is left inguinal lymphadenopathy that is similar to the prior examination. - There is stable chronic periosteal reaction along the periphery of the fibula and to a lesser extent the tibia. - There is stable appearing extensive venous calcification involving the iliac veins extending into the imaged lower flattened SVC which has been present on examinations dated back to 2012 and may be the sequela of old venous thrombosis in these areas. There are similar appearing varices throughout the imaged left lower extremity and there are varicoceles within the right and left scrotum. - Left lower extremity venous system is not well characterized secondary to contrast bolus timing on this exam and if indicated, a left lower extremity Doppler ultrasound could be performed to confirm venous patency. CT LOWER EXT WO IV CONTRAST - 12/27 1. There is some stranding, edema, in the subcutaneous tissue throughout the leg. There is no focal fluid collection, abscess or air collection. 2. No acute osseous abnormality of the left lower extremity. Stable chronic periosteal reaction of venous stasis of the fibula. 3. Lymphadenopathy in the groin and in the pelvis. 4. 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 5. Atherosclerotic vascular calcifications of the iliac vessels. Disposition Summary Disposition Principal Diagnosis: Cellulitis, left lower extremity Additional Diagnosis: Acute Kidney Injury Discharge Disposition: home or self care Discharge Instructions General Discharge Information Code Status: Full Code Patient's Diet: Regular diet Patient's Activity: Resume normal activity as tolerated Follow-Up Instructions/Appts: Please follow up with your PCP in one week. Please continue to take your home medications. Medications at Discharge Discharge Medications: Stop taking the following medications: Gabapentin (Gabapentin) 300 MG CAPSULE ORAL TWICE DAILY Qty = 30 Continue taking these medications: Rivaroxaban (Xarelto) 15 MG TABLET 1 Tablet ORAL DAILY Qty = 30 Fluoxetine HCl (Prozac) 20 MG CAPSULE 30 Milligram ORAL DAILY Qty = 30 Trazodone HCl (Trazodone HCl) 50 MG TABLET 1 Tablet ORAL Every night Qty = 30 Atorvastatin Calcium (Atorvastatin Calcium) 10 MG TABLET 1 Tablet ORAL DAILY Qty = 30 Start taking the following new medications: Gabapentin (Gabapentin) 300 MG CAPSULE 900 Milligram ORAL EVERY 8 HOURS NEEDED as needed for ANXIETY Qty = 90 No Refills Copies To: Madeline ESCOBAR,Wilder Garcia Attending MD Review Statement Documenting Attending: William Colon MD
--- NOTE | 2017-12-27 21:53 | Admission Certification ---
Admission Certification Certification Statement - As attending physician, I certify that at the time of - admission, based on clinical presentation, severity of - symptoms, need for further diagnostic testing and - therapeutic interventions, and risk of adverse outcomes - without in-hospital treatment, in my clinical assessment, - this patient requires an acute hospital stay for a minimum - of two nights or longer. I have also considered psychsocial - factors such as support system, advanced age, financial - issues, cognitive issues, and failed out-patient treatments, - past re-admission history, safety of patient, and lack of - compliance as applicable. Specific rationale supporting this admission is: The patient presents with rapidly progressive LLE cellulitis extending to groin and abdominal wall. Needs admission for IV antibiotics, ID evaluation and erickson- culture. Need to watch for progression and virulent strep/necrotizing fasciitis.
[2017-12-28 06:42] LABS: ABSOLUTE BASOPHIL COUNT 0 /CUMM (0.0-0.2); ABSOLUTE EOSINOPHIL COUNT 0.1 /CUMM (0.0-0.7); ABSOLUTE GRANULOCYTE CT 18.8 /CUMM (1.4-6.5); ABSOLUTE LYMPH COUNT 1.4 /CUMM (1.2-3.4); ABSOLUTE MONOCYTE COUNT 1.5 /CUMM (0.10-0.60); BASOPHIL % 0 % (0.0-2.0); EOSINOPHIL % 0.4 % (0-5); GRANULOCYTE % 86.4 % (42.2-75.2); HEMATOCRIT 29.9 % (42-52); MEAN CORPUSCULAR HGB 29.4 PG (27.0-31.0); MEAN CORPUSCULAR HGB CONC 33.6 G/DL (33.0-37.0); MEAN CORPUSCULAR VOLUME 87.6 FL (80.0-94.0); MEAN PLATELET VOLUME 7.4 FL (7.4-10.4); PLATELET COUNT 287 /CUMM (130-400); RED BLOOD CELL CT 3.41 /CUMM (4.70-6.10); WHITE BLOOD CELL COUNT 21.8 /CUMM (4.8-10.8)
--- NOTE | 2017-12-28 07:14 | PN- Housestaff ---
See Addendum Subjective Follow-up For: Cellulitis of left lower extremity Subjective: Afebrile overnight. Patient is asleep in bed comfortably. Spoke with nurse who mentions patient had no acute events overnight with no episodes of nausea and vomiting. Patient received Ativan one time dose yesterday for some anxiety initially. Patient is being followed by ID and patient is on IV antibiotics for a cellulitis infection of the left leg. Patient's left leg is being elevated per recommedation from ID. Patient otherwise is doing well and will be moved to the medicine floor later today. Review of Systems Constitutional: Reports: see HPI, chills. Objective Last 24 Hrs of Vital Signs/I&O Vital Signs Date Time Temp Pulse Resp B/P B/P Pulse O2 O2 Flow FiO2 Mean Ox Delivery Rate 12/28 1000 70 118/80 12/28 0800 Room Air 12/28 0744 97.8 77 18 112/68 99 Room Air 12/28 0621 96.7 79 20 122/73 98 Room Air 12/28 0109 97.6 80 20 118/67 99 Room Air 12/27 2136 99.8 95 20 119/72 93 Room Air 12/27 2025 98.0 90 20 136/69 08 1728 98.0 90 20 136/69 98 Room Air 12/27 1530 98.2 88 18 140/77 99 12/27 1502 97.2 80 18 122/62 96 Room Air Intake & Output 12/28 1600 12/28 0800 12/28 0000 Intake Total 980 Output Total 450 Balance 530 Intake, IV 500 Intake, Oral 480 Output, Urine 450 Patient 301 lb Weight Weight Reported by Patient Measurement Method Physical Exam General Appearance: Alert, Oriented X3, Cooperative, Mild Distress Skin: erythematous and swollen left leg extending from the distal extremity and extending to the pannus HEENT: Atraumatic Neck: Supple, No JVD Cardiovascular: Regular Rate, Normal S1, Normal S2 Lungs: Clear to Auscultation Abdomen: Soft, No Tenderness Neurological: Normal Speech Extremities: left lower extremity erythematous, patchy lesion extending from groin area to distal left tibula Assessment/Plan Assessment: CT LOWER EXT WO IV CONTRAST - 1. There is some stranding, edema, in the subcutaneous tissue throughout the leg. There is no focal fluid collection, abscess or air collection. 2. No acute osseous abnormality of the left lower extremity. Stable chronic periosteal reaction of venous stasis of the fibula. 3. Lymphadenopathy in the groin and in the pelvis. 4. 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 5. Atherosclerotic vascular calcifications of the iliac vessels. On admission: T-max 99.2, heart rate: 80s, respiration rate 18-20, blood pressure 122/62, saturating between 94-100% on room air Labs: WBC 20.8; H/H 11.2/33.8; BUN 27, Cr 1.8 (last in 05.14) Etiology in this case with a presentation of left lower extremity erythema, swelling, and tenderness without any fevers or chills in a patient with a history of chronic venous stasis with nonhealing ulcers status post multiple debridements is likely related to a developing Cellulitis infection. Differential diagnosis also includes Necrotizing Fasciitis, Deep vein thrombosis , Contact dermatitis, Lymphedema, and Superficial thrombophlebitis. #Cellulitis, left lower extremity with nonhealing ulcers - Admitted to general medicine for management and observation of vitals - Continue IV Unasyn 3 mg every 8 hours; await culture results for change in antibiotic regimen - F/u blood cultures; pending - Left leg elevation per ID rec. - Wound care evaluation for nonhealing ulcers; xeroform dressing #Acute kidney injury - Cr 1.8, previous Cr 1.2 and 1.5 (06/27); repeat Cr today 1.4 - IV fluid hydration D5 1/2 NS 75 cc/hr - Monitor I&Os - Avoid nephrotoxic agents including NSAIDs #Home medications -Continue home medications as required DVT PPx. FC Problem List: 1. Cellulitis of leg Pain Ratin Pain Location: left lower leg Pain Goal: Pain 4 or less Pain Plan: prn meds Tomorrow's Labs & Rationales: routine
--- NOTE | 2017-12-28 12:46 | PN- Infect Dx ---
Subjective Subjective: Afebrile. He feels improved with no complaints. Objective Last 24 Hrs of Vital Signs/I&O Vital Signs Date Time Temp Pulse Resp B/P B/P Pulse O2 O2 Flow FiO2 Mean Ox Delivery Rate 12/28 1000 70 118/80 12/28 0800 Room Air 12/28 0744 97.8 77 18 112/68 99 Room Air 12/28 0621 96.7 79 20 122/73 98 Room Air 12/28 0109 97.6 80 20 118/67 99 Room Air 12/27 2136 99.8 95 20 119/72 93 Room Air 12/27 2025 98.0 90 20 136/69 08 1728 98.0 90 20 136/69 98 Room Air 12/27 1530 98.2 88 18 140/77 99 12/27 1502 97.2 80 18 122/62 96 Room Air 12/27 1423 99.2 78 18 122/65 94 Room Air 12/27 1324 99.0 80 20 131/77 100 Room Air Intake & Output 12/28 1600 12/28 0800 12/28 0000 Intake Total 240 Output Total 450 Balance -210 Intake, Oral 240 Output, Urine 450 Patient 301 lb Weight Weight Reported by Patient Measurement Method Physical Exam Other Physical Findings: He appears comfortable in no acute distress Extremities patches of erythema on the left lower extremity, including the thigh , which remains tender to palpation; bilateral lower extremity ulcers unchanged Results Last 24 Hours of Lab Results: Laboratory Tests 12/28 12/27 0622 1408 Chemistry Sodium (137 - 145 mmol/L) 139 Potassium (3.5 - 5.1 mmol/L) 4.7 Chloride (98 - 107 mmol/L) 111 H Carbon Dioxide (22 - 30 mmol/L) 17 L Anion Gap (5 - 16) 10 BUN (9 - 20 mg/dL) 28 H Creatinine (0.7 - 1.2 mg/dL) 1.4 H Estimated GFR (>60 ml/min) 53 L BUN/Creatinine Ratio (7 - 25 %) 20.0 Hematology CBC w Diff MAN DIFF ORDERED WBC (4.8 - 10.8 /CUMM) 21.8 H RBC (4.70 - 6.10 /CUMM) 3.41 L Hgb (14.0 - 18.0 G/DL) 10.0 L Hct (42 - 52 %) 29.9 L MCV (80.0 - 94.0 FL) 87.6 MCH (27.0 - 31.0 PG) 29.4 MCHC (33.0 - 37.0 G/DL) 33.6 RDW (11.5 - 14.5 %) 16.0 H Plt Count (130 - 400 /CUMM) 287 MPV (7.4 - 10.4 FL) 7.4 Gran % (42.2 - 75.2 %) 86.4 H Lymphocytes % (20.5 - 51.1 %) 6.5 L Monocytes % (1.7 - 9.3 %) 6.7 Eosinophils % (0 - 5 %) 0.4 Basophils % (0.0 - 2.0 %) 0 Absolute Granulocytes (1.4 - 6.5 /CUMM) 18.8 H Segmented Neutrophils (42.2 - 75.2 %) 86 H Absolute Lymphocytes (1.2 - 3.4 /CUMM) 1.4 Lymphocytes (20.5 - 51.1 %) 8 L Monocytes (1.7 - 9.3 %) 5 Absolute Monocytes (0.10 - 0.60 /CUMM) 1.5 H Eosinophils (0 - 5.0 %) 1 Absolute Eosinophils (0.0 - 0.7 /CUMM) 0.1 Absolute Basophils (0.0 - 0.2 /CUMM) 0 Platelet Estimate (ADEQUATE) ADEQUATE Normocytic RBCs VERIFIED Normochromic RBCs VERIFIED Urines Urinalysis LIGHT H Urine Color (YEL,AMB,STR) YEL Urine Clarity (CLEAR) CLEAR Urine pH (5.0 - 8.0) 6.0 Ur Specific [place] (1.001 - 1.035) >= 1.030 Urine Protein (NEG,<30 MG/DL) >=300 H Urine Ketones (NEG) NEG Urine Nitrite (NEG) NEG Urine Bilirubin (NEG) NEG Urine Urobilinogen (0.1 - 1.0 EU/dl) 1.0 Ur Leukocyte Esterase (NEG) NEG Ur Microscopic SEDIMENT EXAMINED Urine RBC (0 - 5 /HPF) 3-5 Urine WBC (0 - 2 /HPF) 1-3 H Ur Epithelial Cells (NONE,FEW) OCCAS Urine Bacteria (NEG/NONE) MOD H Urine Hemoglobin (NEG) MOD H Urine Glucose (N MG/DL) NEG 12/27 1342 Chemistry Lactic Acid Cancelled Last 24 Hours of Rock Results: Blood cultures December 27 negative Urine culture December 27 negative Recent Imaging Studies: CT of the left lower extremity December 27 reveals stranding in the subcutaneous tissues throughout the leg, with no focal fluid collection, abscess or air collection, and no acute osseous abnormality Assessment/Plan ID Impression: Stable, with temperatures remaining normal, though his white blood cell count has increased slightly today, on Unasyn, Day 1 of treatment for a left lower extremity cellulitis secondary to a chronic, nonhealing left lower extremity ulcer. His renal function has improved and appears closer to his baseline. Suggestion: 1. Continue elevation of the left leg 2. Continue Unasyn
--- NOTE | 2017-12-28 12:57 | PN- Infect Dx ---
Subjective Subjective: Afebrile. She complains of a cough, mostly nonproductive, with no chest pain or shortness of breath. She continues to have diarrhea, with 8 stools recorded yesterday and 5 overnight, with no further nausea, vomiting or abdominal pain. Objective Last 24 Hrs of Vital Signs/I&O Vital Signs Date Time Temp Pulse Resp B/P B/P Pulse O2 O2 Flow FiO2 Mean Ox Delivery Rate 12/28 1000 70 118/80 12/28 0800 Room Air 12/28 0744 97.8 77 18 112/68 99 Room Air 12/28 0621 96.7 79 20 122/73 98 Room Air 12/28 0109 97.6 80 20 118/67 99 Room Air 12/27 2136 99.8 95 20 119/72 93 Room Air 12/27 2025 98.0 90 20 136/69 12/27 1728 98.0 90 20 136/69 98 Room Air 12/27 1530 98.2 88 18 140/77 99 12/27 1502 97.2 80 18 122/62 96 Room Air 12/27 1423 99.2 78 18 122/65 94 Room Air 12/27 1324 99.0 80 20 131/77 100 Room Air Intake & Output 12/28 1600 12/28 0800 12/28 0000 Intake Total 240 Output Total 450 Balance -210 Intake, Oral 240 Output, Urine 450 Patient 301 lb Weight Weight Reported by Patient Measurement Method Physical Exam Other Physical Findings: She appears uncomfortable but in no acute distress Lungs bibasilar rhonchi Heart regular rhythm with no murmur Abdomen is distended, nontender with positive bowel sounds Extremities no cyanosis, clubbing or edema Results Last 24 Hours of Lab Results: Laboratory Tests 12/28 12/27 0622 1408 Chemistry Sodium (137 - 145 mmol/L) 139 Potassium (3.5 - 5.1 mmol/L) 4.7 Chloride (98 - 107 mmol/L) 111 H Carbon Dioxide (22 - 30 mmol/L) 17 L Anion Gap (5 - 16) 10 BUN (9 - 20 mg/dL) 28 H Creatinine (0.7 - 1.2 mg/dL) 1.4 H Estimated GFR (>60 ml/min) 53 L BUN/Creatinine Ratio (7 - 25 %) 20.0 Hematology CBC w Diff MAN DIFF ORDERED WBC (4.8 - 10.8 /CUMM) 21.8 H RBC (4.70 - 6.10 /CUMM) 3.41 L Hgb (14.0 - 18.0 G/DL) 10.0 L Hct (42 - 52 %) 29.9 L MCV (80.0 - 94.0 FL) 87.6 MCH (27.0 - 31.0 PG) 29.4 MCHC (33.0 - 37.0 G/DL) 33.6 RDW (11.5 - 14.5 %) 16.0 H Plt Count (130 - 400 /CUMM) 287 MPV (7.4 - 10.4 FL) 7.4 Gran % (42.2 - 75.2 %) 86.4 H Lymphocytes % (20.5 - 51.1 %) 6.5 L Monocytes % (1.7 - 9.3 %) 6.7 Eosinophils % (0 - 5 %) 0.4 Basophils % (0.0 - 2.0 %) 0 Absolute Granulocytes (1.4 - 6.5 /CUMM) 18.8 H Segmented Neutrophils (42.2 - 75.2 %) 86 H Absolute Lymphocytes (1.2 - 3.4 /CUMM) 1.4 Lymphocytes (20.5 - 51.1 %) 8 L Monocytes (1.7 - 9.3 %) 5 Absolute Monocytes (0.10 - 0.60 /CUMM) 1.5 H Eosinophils (0 - 5.0 %) 1 Absolute Eosinophils (0.0 - 0.7 /CUMM) 0.1 Absolute Basophils (0.0 - 0.2 /CUMM) 0 Platelet Estimate (ADEQUATE) ADEQUATE Normocytic RBCs VERIFIED Normochromic RBCs VERIFIED Urines Urinalysis LIGHT H Urine Color (YEL,AMB,STR) YEL Urine Clarity (CLEAR) CLEAR Urine pH (5.0 - 8.0) 6.0 Ur Specific Fackler (1.001 - 1.035) >= 1.030 Urine Protein (NEG,<30 MG/DL) >=300 H Urine Ketones (NEG) NEG Urine Nitrite (NEG) NEG Urine Bilirubin (NEG) NEG Urine Urobilinogen (0.1 - 1.0 EU/dl) 1.0 Ur Leukocyte Esterase (NEG) NEG Ur Microscopic SEDIMENT EXAMINED Urine RBC (0 - 5 /HPF) 3-5 Urine WBC (0 - 2 /HPF) 1-3 H Ur Epithelial Cells (NONE,FEW) OCCAS Urine Bacteria (NEG/NONE) MOD H Urine Hemoglobin (NEG) MOD H Urine Glucose (N MG/DL) NEG 12/27 1342 Chemistry Lactic Acid Cancelled Last 24 Hours of Rock Results: Blood cultures December 23 negative Blood cultures December 26 negative Stool C. difficile December 27 pending Assessment/Plan ID Impression: Persistent diarrhea, possibly secondary to C. difficile, on empiric treatment with p.o. Vancomycin, begun yesterday, pending the results of the C. difficile toxin test, with her temperatures and white blood cell count now normal. She continues to have a cough, which remains nonproductive, with her recent CT of the chest revealing bilateral moderate pleural effusions and compression atelectasis of both lung bases and with her respiratory status stable. Her thrombocytopenia, possibly secondary to infection or alcohol, appears to be improving. Suggestion: 1. Follow-up stool for C. difficile 2. Further evaluation for an underlying pulmonary process if her C. difficile is negative 3. Continue p.o. Vancomycin pending above
[2017-12-28] MEDS ORDERED: GABAPENTIN300 M2 PO (15:47)
[2017-12-28] MEDS ORDERED: TRAZODONE HCL50 M1 PO (15:48)
[2017-12-28 18:38] VITALS: BP 113/73
[2017-12-28 19:31] VITALS: BP 120/62
[2017-12-29 06:29] VITALS: BP 120/80
--- NOTE | 2017-12-29 07:52 | PN- Housestaff ---
See Addendum Subjective Follow-up For: Cellulitis of left lower extremity Subjective: Afebrile overnight. No acute events overnight. Patient is seen and examined in bed. Patient is sleeping this morning and is slightly sluggish upon awakening. Patient complains of persistent left leg pain however patients left lower extremity rash looks to be improving so far. Patient otherwise denies any diarrhea, constipation, fevers, chills, fatigue, chest pain, and shortness of breath. Review of Systems Constitutional: Reports: see HPI. Objective Last 24 Hrs of Vital Signs/I&O Vital Signs Date Time Temp Pulse Resp B/P B/P Pulse O2 O2 Flow FiO2 Mean Ox Delivery Rate 12/29 0629 98.3 81 20 120/80 97 Room Air 12/28 1931 98.8 84 22 120/62 99 Room Air 12/28 1838 97.8 81 22 113/73 99 Room Air 12/28 1837 97.8 81 22 113/73 99 Room Air 12/28 1000 70 118/80 Intake & Output 12/29 1600 12/29 0800 12/29 0000 Intake Total 720 Output Total 350 300 Balance 370 -300 Intake, IV 600 Intake, Oral 120 Output, Urine 350 300 Patient 288 lb Weight Weight Bed scale Measurement Method Physical Exam General Appearance: Alert, Oriented X3, No Acute Distress Skin: erythematous and swollen left leg extending from the distal extremity and extending to the pannus HEENT: Atraumatic Neck: Supple, No JVD Cardiovascular: Regular Rate, Normal S1, Normal S2 Lungs: Clear to Auscultation Neurological: Normal Speech Extremities: left lower extremity erythematous, patchy lesion extending from groin area to distal left tibula Assessment/Plan Assessment: CT LOWER EXT WO IV CONTRAST - 1. There is some stranding, edema, in the subcutaneous tissue throughout the leg. There is no focal fluid collection, abscess or air collection. 2. No acute osseous abnormality of the left lower extremity. Stable chronic periosteal reaction of venous stasis of the fibula. 3. Lymphadenopathy in the groin and in the pelvis. 4. 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 5. Atherosclerotic vascular calcifications of the iliac vessels. On admission: T-max 99.2, heart rate: 80s, respiration rate 18-20, blood pressure 122/62, saturating between 94-100% on room air Labs: WBC 20.8; H/H 11.2/33.8; BUN 27, Cr 1.8 (last in Jun 1.5) Etiology in this case with a presentation of left lower extremity erythema, swelling, and tenderness without any fevers or chills in a patient with a history of chronic venous stasis with nonhealing ulcers status post multiple debridements is likely related to a developing Cellulitis infection. Differential diagnosis also includes Necrotizing Fasciitis, Deep vein thrombosis , Contact dermatitis, Lymphedema, and Superficial thrombophlebitis. #Cellulitis, left lower extremity with nonhealing ulcers - Admitted to general medicine for management and observation of vitals - Continue IV Unasyn 3 mg every 6 hours; await culture results for change in antibiotic regimen - F/u blood cultures; pending - Left leg elevation per ID rec. - Wound care evaluation for nonhealing ulcers; xeroform dressing #Acute kidney injury - Cr 1.3 today (1.4 prior), improving renal function - IV fluid hydration D5 1/2 NS 75 cc/hr - Monitor I&Os - Avoid nephrotoxic agents including NSAIDs #Home medications -Continue home medications as required DVT PPx. FC Problem List: 1. Cellulitis of leg Pain Ratin Pain Location: left lower leg Pain Goal: Pain 7 or less Pain Plan: prn meds Tomorrow's Labs & Rationales: routine
[2017-12-29 08:16] LABS: ABSOLUTE BASOPHIL COUNT 0 /CUMM (0.0-0.2); ABSOLUTE EOSINOPHIL COUNT 0.2 /CUMM (0.0-0.7); ABSOLUTE GRANULOCYTE CT 13.6 /CUMM (1.4-6.5); ABSOLUTE LYMPH COUNT 1.7 /CUMM (1.2-3.4); ABSOLUTE MONOCYTE COUNT 1.3 /CUMM (0.10-0.60); BASOPHIL % 0 % (0.0-2.0); EOSINOPHIL % 1.4 % (0-5); GRANULOCYTE % 80.8 % (42.2-75.2); HEMATOCRIT 30.7 % (42-52); MEAN CORPUSCULAR HGB 28.7 PG (27.0-31.0); MEAN CORPUSCULAR HGB CONC 32.8 G/DL (33.0-37.0); MEAN CORPUSCULAR VOLUME 87.7 FL (80.0-94.0); MEAN PLATELET VOLUME 7.7 FL (7.4-10.4); PLATELET COUNT 297 /CUMM (130-400); WHITE BLOOD CELL COUNT 16.8 /CUMM (4.8-10.8)
--- NOTE | 2017-12-29 12:17 | PN- Infect Dx ---
Subjective Subjective: Afebrile. He continues to complain of pain in the left leg. Objective Last 24 Hrs of Vital Signs/I&O Vital Signs Date Time Temp Pulse Resp B/P B/P Pulse O2 O2 Flow FiO2 Mean Ox Delivery Rate 12/29 0926 81 120/80 12/29 0629 98.3 81 20 120/80 97 Room Air 12/28 1931 98.8 84 22 120/62 99 Room Air 12/28 1838 97.8 81 22 113/73 99 Room Air 12/28 1837 97.8 81 22 113/73 99 Room Air Intake & Output 12/29 1600 12/29 0800 12/29 0000 Intake Total 720 Output Total 350 300 Balance 370 -300 Intake, IV 600 Intake, Oral 120 Output, Urine 350 300 Patient 288 lb Weight Weight Bed scale Measurement Method Physical Exam Other Physical Findings: He appears uncomfortable but in no acute distress Extremities patches of erythema in the left leg persists, tender to palpation, particularly in the anterior medial aspect of his left thigh Results Last 24 Hours of Lab Results: Laboratory Tests 12/29 0611 Chemistry Sodium (137 - 145 mmol/L) 139 Potassium (3.5 - 5.1 mmol/L) 4.7 Chloride (98 - 107 mmol/L) 110 H Carbon Dioxide (22 - 30 mmol/L) 21 L Anion Gap (5 - 16) 8 BUN (9 - 20 mg/dL) 26 H Creatinine (0.7 - 1.2 mg/dL) 1.3 H Estimated GFR (>60 ml/min) 58 L BUN/Creatinine Ratio (7 - 25 %) 20.0 Hematology CBC w Diff NO MAN DIFF REQ WBC (4.8 - 10.8 /CUMM) 16.8 H RBC (4.70 - 6.10 /CUMM) 3.50 L Hgb (14.0 - 18.0 G/DL) 10.1 L Hct (42 - 52 %) 30.7 L MCV (80.0 - 94.0 FL) 87.7 MCH (27.0 - 31.0 PG) 28.7 MCHC (33.0 - 37.0 G/DL) 32.8 L RDW (11.5 - 14.5 %) 16.0 H Plt Count (130 - 400 /CUMM) 297 MPV (7.4 - 10.4 FL) 7.7 Gran % (42.2 - 75.2 %) 80.8 H Lymphocytes % (20.5 - 51.1 %) 10.2 L Monocytes % (1.7 - 9.3 %) 7.6 Eosinophils % (0 - 5 %) 1.4 Basophils % (0.0 - 2.0 %) 0 Absolute Granulocytes (1.4 - 6.5 /CUMM) 13.6 H Absolute Lymphocytes (1.2 - 3.4 /CUMM) 1.7 Absolute Monocytes (0.10 - 0.60 /CUMM) 1.3 H Absolute Eosinophils (0.0 - 0.7 /CUMM) 0.2 Absolute Basophils (0.0 - 0.2 /CUMM) 0 Last 24 Hours of Rock Results: Blood cultures 2 December 27 negative Urine culture December 27 negative Assessment/Plan ID Impression: Stable, with temperatures remaining normal and white blood cell count decreasing , on Unasyn, Day 2 of treatment for a left lower extremity cellulitis/ lymphangitis secondary to a chronic, nonhealing left lower extremity ulcer. The CT of his left lower extremity did not reveal any evidence for any collection. Given his improved renal function his Unasyn dose can be adjusted. Suggestion: 1. Elevation of the left leg 2. Increase Unasyn to 3 g IV every 6 hours
[2017-12-29 14:06] VITALS: BP 134/76
--- NOTE | 2017-12-29 14:26 | Patient Discharge Instructions ---
Discharge Instructions General Discharge Information You were seen/treated for: Cellulitis of left lower extremity You had these procedures: Lower Extremity CT Watch for these problems: If you experience any worsening rash, fever, chills, fatigue, and/or leg swelling please follow up with your PCP. Special Instructions: Please follow up with your PCP in one week. Please continue to take your home medications. Ciprofloxacin 750 mg by mouth every 12 hours for 4 more days Clindamycin to 450 mg by mouth every 8 hours for 4 more days Diet Continue normal diet: Yes Recommended Diet: Regular Activity Full Activity/No Limits: No Activity Self Limited: Yes Acute Coronary Syndrome Inclusion Criteria At DC or during hospital stay patient has or had the following: ACS DIAGNOSIS No Discharge Core Measures Meds if any: Prescribed or Continued at Discharge Meds if any: NOT Prescribed or Continued at Discharge Congestive Heart Failure Inclusion Criteria At DC or during hospital stay patient has or had the following: CHF DIAGNOSIS No Discharge Core Measures Meds if any: Prescribed or Continued at Discharge Meds if any: NOT Prescribed or Continued at Discharge Cerebrovascular accident Inclusion Criteria At DC or during hospital stay patient has or had the following: CVA/TIA Diagnosis No Discharge Core Measures Meds if any: Prescribed or Continued at Discharge Meds if any: NOT Prescribed or Continued at Discharge Venous thromboembolism Inclusion Criteria VTE Diagnosis No VTE Type NONE VTE Confirmed by (Test) NONE Discharge Core Measures - Per Current guidelines, there needs to be overlap - treatment for the first 5 days of Warfarin therapy. - If discharged on Warfarin prior to 5 days of - overlap therapy, the patient will need to be - assessed for post discharge needs including - *Post discharge parental anticoagulation - *Warfarin and/or parental anticoagulation education - *Follow up date to check INR post discharge At least 5 days overlap therapy as Inpatient No Meds if any: Prescribed or Continued at Discharge Note: Overlap Therapy is Warfarin and Anticoagulant Meds if any: NOT Prescribed or Continued at Discharge
[2017-12-29 23:00] VITALS: BP 128/74
[2017-12-30 07:14] VITALS: BP 130/60
--- NOTE | 2017-12-30 07:55 | PN- Housestaff ---
See Addendum Subjective Follow-up For: Cellulitis of left lower extremity Subjective: Afebrile overnight. No acute events overnight. Patient is seen and examined in bed. Patient complains of persistent left leg pain however patients left lower extremity rash looks to be improving so far. Patient notes he takes Gabapentin at home which provided him no relief, consider increasing his dosage to improve his symptom management notably anxiousness and associated leg pain. Patient otherwise denies any diarrhea, constipation, fevers, chills, fatigue, chest pain , and shortness of breath. Review of Systems Constitutional: Reports: see HPI. Objective Last 24 Hrs of Vital Signs/I&O Vital Signs Date Time Temp Pulse Resp B/P B/P Pulse O2 O2 Flow FiO2 Mean Ox Delivery Rate 12/30 0714 98.5 87 22 130/60 97 12/29 2300 98.0 72 18 128/74 94 Room Air 12/29 1406 98.6 76 22 134/76 97 Room Air 12/29 0926 81 120/80 Intake & Output 12/30 0800 12/30 0000 12/29 1600 Intake Total 420 1100 Output Total 500 375 Balance -80 725 Intake, IV 300 1100 Intake, Oral 120 Output, Urine 500 375 Physical Exam General Appearance: Alert, Oriented X3, No Acute Distress Skin: erythematous and swollen left leg extending from the distal extremity and extending to the pannus HEENT: Atraumatic Neck: Supple, No JVD Cardiovascular: Regular Rate, Normal S1, Normal S2 Lungs: Clear to Auscultation Neurological: Normal Speech Extremities: left lower extremity erythematous, patchy lesion extending from groin area to distal left tibula Assessment/Plan Assessment: CT LOWER EXT WO IV CONTRAST - 1. There is some stranding, edema, in the subcutaneous tissue throughout the leg. There is no focal fluid collection, abscess or air collection. 2. No acute osseous abnormality of the left lower extremity. Stable chronic periosteal reaction of venous stasis of the fibula. 3. Lymphadenopathy in the groin and in the pelvis. 4. 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 5. Atherosclerotic vascular calcifications of the iliac vessels. On admission: T-max 99.2, heart rate: 80s, respiration rate 18-20, blood pressure 122/62, saturating between 94-100% on room air Labs: WBC 20.8; H/H 11.2/33.8; BUN 27, Cr 1.8 (last in Jun 1.5) Etiology in this case with a presentation of left lower extremity erythema, swelling, and tenderness without any fevers or chills in a patient with a history of chronic venous stasis with nonhealing ulcers status post multiple debridements is likely related to a developing Cellulitis infection. Differential diagnosis also includes Necrotizing Fasciitis, Deep vein thrombosis , Contact dermatitis, Lymphedema, and Superficial thrombophlebitis. #Cellulitis, left lower extremity with nonhealing ulcers - Admitted to general medicine for management and observation of vitals - Continue IV Unasyn 3 mg every 6 hours; await culture results for change in antibiotic regimen - F/u blood cultures; pending - Left leg elevation per ID rec. - Wound care evaluation for nonhealing ulcers; xeroform dressing - Gabapentin 300 mg TID #Acute kidney injury - Cr 1.3 today (1.4 prior), improving renal function - IV fluid hydration D5 1/2 NS 75 cc/hr - Monitor I&Os - Avoid nephrotoxic agents including NSAIDs #Home medications -Continue home medications as required DVT PPx. FC Problem List: 1. Cellulitis of leg Pain Ratin Pain Location: left lower leg Pain Goal: Pain 7 or less Pain Plan: prn pain meds Tomorrow's Labs & Rationales: routine
[2017-12-30 09:31] LABS: ABSOLUTE BASOPHIL COUNT 0 /CUMM (0.0-0.2); ABSOLUTE EOSINOPHIL COUNT 0.3 /CUMM (0.0-0.7); ABSOLUTE GRANULOCYTE CT 10.8 /CUMM (1.4-6.5); ABSOLUTE LYMPH COUNT 2.2 /CUMM (1.2-3.4); BASOPHIL % 0.3 % (0.0-2.0); EOSINOPHIL % 2.3 % (0-5); GRANULOCYTE % 75.6 % (42.2-75.2); MEAN CORPUSCULAR HGB 29.2 PG (27.0-31.0); MEAN CORPUSCULAR HGB CONC 33.6 G/DL (33.0-37.0); MEAN CORPUSCULAR VOLUME 86.9 FL (80.0-94.0); MEAN PLATELET VOLUME 7.5 FL (7.4-10.4); PLATELET COUNT 360 /CUMM (130-400); RBC DISTRIBUTION WIDTH 15.4 % (11.5-14.5); RED BLOOD CELL CT 3.56 /CUMM (4.70-6.10); WHITE BLOOD CELL COUNT 14.3 /CUMM (4.8-10.8)
--- NOTE | 2017-12-30 13:06 | PN- Infect Dx ---
Subjective Subjective: Afebrile. He feels somewhat improved Objective Last 24 Hrs of Vital Signs/I&O Vital Signs Date Time Temp Pulse Resp B/P B/P Pulse O2 O2 Flow FiO2 Mean Ox Delivery Rate 12/30 0843 72 128/78 12/30 0714 98.5 87 22 130/60 97 12/29 2300 98.0 72 18 128/74 94 Room Air 12/29 1406 98.6 76 22 134/76 97 Room Air Intake & Output 12/30 1600 12/30 0800 12/30 0000 Intake Total 720 420 Output Total 500 500 Balance 220 -80 Intake, IV 600 300 Intake, Oral 120 120 Output, Urine 500 500 Physical Exam Other Physical Findings: He appears comfortable in no acute distress Extremities left leg with patchy erythema without significant change, perhaps less tender to palpation; bilateral lower extremity ulcers with dressings intact Results Last 24 Hours of Lab Results: Laboratory Tests 12/30 814 Chemistry Sodium (137 - 145 mmol/L) 138 Potassium (3.5 - 5.1 mmol/L) 4.7 Chloride (98 - 107 mmol/L) 107 Carbon Dioxide (22 - 30 mmol/L) 22 Anion Gap (5 - 16) 9 BUN (9 - 20 mg/dL) 21 H Creatinine (0.7 - 1.2 mg/dL) 1.4 H Estimated GFR (>60 ml/min) 53 L BUN/Creatinine Ratio (7 - 25 %) 15.0 Hematology CBC w Diff NO MAN DIFF REQ WBC (4.8 - 10.8 /CUMM) 14.3 H RBC (4.70 - 6.10 /CUMM) 3.56 L Hgb (14.0 - 18.0 G/DL) 10.4 L Hct (42 - 52 %) 31.0 L MCV (80.0 - 94.0 FL) 86.9 MCH (27.0 - 31.0 PG) 29.2 MCHC (33.0 - 37.0 G/DL) 33.6 RDW (11.5 - 14.5 %) 15.4 H Plt Count (130 - 400 /CUMM) 360 MPV (7.4 - 10.4 FL) 7.5 Gran % (42.2 - 75.2 %) 75.6 H Lymphocytes % (20.5 - 51.1 %) 15.1 L Monocytes % (1.7 - 9.3 %) 6.7 Eosinophils % (0 - 5 %) 2.3 Basophils % (0.0 - 2.0 %) 0.3 Absolute Granulocytes (1.4 - 6.5 /CUMM) 10.8 H Absolute Lymphocytes (1.2 - 3.4 /CUMM) 2.2 Absolute Monocytes (0.10 - 0.60 /CUMM) 1.0 H Absolute Eosinophils (0.0 - 0.7 /CUMM) 0.3 Absolute Basophils (0.0 - 0.2 /CUMM) 0 Last 24 Hours of Rock Results: Blood cultures December 27 negative Assessment/Plan ID Impression: Gradual improvement, with his temperatures remaining normal and white blood cell count continuing to decrease, on Unasyn, Day 3 of treatment for a left lower extremity cellulitis/lymphangitis secondary to a chronic, nonhealing left lower extremity ulcer. Suggestion: 1. Continue elevation of the left leg 2. Continue Unasyn
[2017-12-30 15:27] VITALS: BP 118/72
[2017-12-30 22:02] VITALS: BP 120/70
[2017-12-31 06:32] VITALS: BP 116/78
--- NOTE | 2017-12-31 07:48 | PN- Housestaff ---
See Addendum Subjective Follow-up For: Cellulitis of left lower extremity Subjective: Afebrile overnight. No acute events overnight. Patient is seen and examined in bed. Patient complains of persistent left lower extremity pain however patients states the leg is not as tender as before and that the swelling has decreased so far. Patient states his anxiety and associated tremors have improved with the anti-anxiety medication. Patient reaffirms that the gabapentin from prior has not provided him much benefit, if at all. Patient otherwise denies any diarrhea, constipation, fevers, chills, fatigue, chest pain, and shortness of breath. Review of Systems Constitutional: Reports: see HPI. Objective Last 24 Hrs of Vital Signs/I&O Vital Signs Date Time Temp Pulse Resp B/P B/P Pulse O2 O2 Flow FiO2 Mean Ox Delivery Rate 12/31 0632 97.5 78 18 116/78 98 Room Air 12/30 2202 97.9 80 18 120/70 98 Room Air 12/30 1527 98.3 85 22 118/72 98 Room Air 12/30 0843 72 128/78 Intake & Output 12/31 0800 12/31 0000 12/30 1600 Intake Total 840 1005 Output Total 750 275 700 Balance 90 -275 305 Intake, IV 600 525 Intake, Oral 240 480 Output, Urine 750 275 700 Physical Exam General Appearance: Alert, Oriented X3, Cooperative, No Acute Distress Skin: erythematous left leg extending from just distal to the knee and extending to the pannus, with slight hardening of overlying skin erythema HEENT: Atraumatic Neck: Supple, No JVD Cardiovascular: Regular Rate, Normal S1, Normal S2 Lungs: Clear to Auscultation Neurological: Normal Speech Extremities: left lower extremity erythematous, patchy lesion extending from groin area to middle left tibula Assessment/Plan Assessment: CT LOWER EXT WO IV CONTRAST - 1. There is some stranding, edema, in the subcutaneous tissue throughout the leg. There is no focal fluid collection, abscess or air collection. 2. No acute osseous abnormality of the left lower extremity. Stable chronic periosteal reaction of venous stasis of the fibula. 3. Lymphadenopathy in the groin and in the pelvis. 4. 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 5. Atherosclerotic vascular calcifications of the iliac vessels. On admission: T-max 99.2, heart rate: 80s, respiration rate 18-20, blood pressure 122/62, saturating between 94-100% on room air Labs: WBC 20.8; H/H 11.2/33.8; BUN 27, Cr 1.8 (last in Jun 10.) Etiology in this case with a presentation of left lower extremity erythema, swelling, and tenderness without any fevers or chills in a patient with a history of chronic venous stasis with nonhealing ulcers status post multiple debridements is likely related to a developing Cellulitis infection. Differential diagnosis also includes Necrotizing Fasciitis, Deep vein thrombosis , Contact dermatitis, Lymphedema, and Superficial thrombophlebitis. #Cellulitis, left lower extremity with nonhealing ulcers - Admitted to general medicine for management and observation of vitals - Discontinued IV Unasyn 3 mg every 6 hours; started Ceftazidime 2g and Clindamycin 900 mg, repeat blood cultures x2 and CT lower extremity due to incresing WBC count and Bandemia (12) - F/u blood cultures; pending - Left leg elevation per ID rec. - Wound care evaluation for nonhealing ulcers; xeroform dressing - Gabapentin 600 mg TID - Wound care management: Excisonal debridement of left leg due to cellulitis infection #Acute kidney injury - Cr 1.4 today - IV fluid hydration D5 1/2 NS 75 cc/hr - Monitor I&Os - Avoid nephrotoxic agents including NSAIDs #Home medications -Continue home medications as required DVT PPx. FC Problem List: 1. Cellulitis of leg Pain Ratin Pain Location: left lower leg Pain Goal: Pain 4 or less Pain Plan: prn pain meds Tomorrow's Labs & Rationales: routine
[2017-12-31 08:23] LABS: ABSOLUTE BASOPHIL COUNT 0.1 /CUMM (0.0-0.2); ABSOLUTE EOSINOPHIL COUNT 0.4 /CUMM (0.0-0.7); ABSOLUTE GRANULOCYTE CT 13.1 /CUMM (1.4-6.5); ABSOLUTE LYMPH COUNT 2.6 /CUMM (1.2-3.4); ABSOLUTE MONOCYTE COUNT 1.6 /CUMM (0.10-0.60); BASOPHIL % 0.3 % (0.0-2.0); EOSINOPHIL % 2.2 % (0-5); GRANULOCYTE % 73.8 % (42.2-75.2); HEMATOCRIT 31.4 % (42-52); MEAN CORPUSCULAR HGB 29.2 PG (27.0-31.0); MEAN CORPUSCULAR HGB CONC 33.1 G/DL (33.0-37.0); MEAN CORPUSCULAR VOLUME 88.2 FL (80.0-94.0); MEAN PLATELET VOLUME 7.4 FL (7.4-10.4); PLATELET COUNT 391 /CUMM (130-400); RBC DISTRIBUTION WIDTH 15.5 % (11.5-14.5); RED BLOOD CELL CT 3.56 /CUMM (4.70-6.10); WHITE BLOOD CELL COUNT 17.7 /CUMM (4.8-10.8)
[2017-12-31] MEDS ORDERED: XARELTO15 M1 PO (08:36)
[2017-12-31] MEDS ORDERED: PROZAC20 M2 PO (08:37)
[2017-12-31] MEDS ORDERED: TRAZODONE HCL50 M1 PO (08:38)
[2017-12-31] MEDS ORDERED: ATORVASTATIN CA10 M1 PO (08:38)
[2017-12-31] MEDS ORDERED: GABAPENTIN300 M2 PO ×2 (08:39→10:36)
--- NOTE | 2017-12-31 12:11 | PN- Infect Dx ---
Subjective Subjective: Afebrile. He continues to complain of pain in the left lower extremity. He denies any respiratory, GI or symptoms. Objective Last 24 Hrs of Vital Signs/I&O Vital Signs Date Time Temp Pulse Resp B/P B/P Pulse O2 O2 Flow FiO2 Mean Ox Delivery Rate 12/31 0758 78 116/78 12/31 0632 97.5 78 18 116/78 98 Room Air 12/30 2202 97.9 80 18 120/70 98 Room Air 12/30 1527 98.3 85 22 118/72 98 Room Air Intake & Output 12/31 1600 12/31 0800 12/31 0000 Intake Total 840 Output Total 750 275 Balance 90 -275 Intake, IV 600 Intake, Oral 240 Output, Urine 750 275 Physical Exam Other Physical Findings: He appears comfortable in no acute distress Skin no rash Lungs are clear Heart regular rhythm with no murmur Abdomen is obese, soft, nontender with positive bowel sounds Back no CVA tenderness Extremities marked swelling of the left leg persists, with patches of erythema, mostly from the knee to the groin, not significantly changed from previous exams , tender to palpation, with no focal areas of fluctuance; good range of motion of the left knee; left anterior tibial ulcer unchanged Results Last 24 Hours of Lab Results: Laboratory Tests 12/31 0637 Chemistry Sodium (137 - 145 mmol/L) 138 Potassium (3.5 - 5.1 mmol/L) 4.8 Chloride (98 - 107 mmol/L) 107 Carbon Dioxide (22 - 30 mmol/L) 22 Anion Gap (5 - 16) 9 BUN (9 - 20 mg/dL) 24 H Creatinine (0.7 - 1.2 mg/dL) 1.3 H Estimated GFR (>60 ml/min) 58 L BUN/Creatinine Ratio (7 - 25 %) 18.5 Hematology CBC w Diff MAN DIFF ORDERED WBC (4.8 - 10.8 /CUMM) 17.7 H RBC (4.70 - 6.10 /CUMM) 3.56 L Hgb (14.0 - 18.0 G/DL) 10.4 L Hct (42 - 52 %) 31.4 L MCV (80.0 - 94.0 FL) 88.2 MCH (27.0 - 31.0 PG) 29.2 MCHC (33.0 - 37.0 G/DL) 33.1 RDW (11.5 - 14.5 %) 15.5 H Plt Count (130 - 400 /CUMM) 391 MPV (7.4 - 10.4 FL) 7.4 Gran % (42.2 - 75.2 %) 73.8 Lymphocytes % (20.5 - 51.1 %) 14.6 L Monocytes % (1.7 - 9.3 %) 9.1 Eosinophils % (0 - 5 %) 2.2 Basophils % (0.0 - 2.0 %) 0.3 Absolute Granulocytes (1.4 - 6.5 /CUMM) 13.1 H Segmented Neutrophils (42.2 - 75.2 %) 52 Band Neutrophils (0.0 - 5.0 %) 12 H Absolute Lymphocytes (1.2 - 3.4 /CUMM) 2.6 Lymphocytes (20.5 - 51.1 %) 16 L Monocytes (1.7 - 9.3 %) 9 Absolute Monocytes (0.10 - 0.60 /CUMM) 1.6 H Eosinophils (0 - 5.0 %) 2 Absolute Eosinophils (0.0 - 0.7 /CUMM) 0.4 Absolute Basophils (0.0 - 0.2 /CUMM) 0.1 Metamyelocytes (0.0 - 1.0 %) 8 H Myelocytes (0 - 0 %) 1 H Platelet Estimate (ADEQUATE) VERIFIED BY SMEAR Normocytic RBCs VERIFIED Normochromic RBCs VERIFIED Last 24 Hours of Rock Results: Blood cultures December 27 negative Assessment/Plan ID Impression: Persistent pain and inflammation in the left lower extremity, with no significant response to Unasyn, and, though he remains afebrile, his white blood cell count, which initially was decreasing, has increased, now with increased bands. In the absence of any other obvious focus of infection must presume that this is secondary to his left leg. His initial CT scan (without contrast) did not reveal any localized collection or evidence of air to suggest necrotizing fasciitis but reimaging may be reasonable to rule out the development of any collection. Regardless of the CT findings his antibiotics will need to be broadened given the apparent lack of response to Unasyn. Suggestion: 1. Repeat CT of the left lower extremity (with IV contrast if his renal function permits) 2. Would pursue any localized fluid collections seen on the CT by IR 3. Repeat blood cultures 2 4. Discontinue Unasyn 5. Begin Clindamycin 900 mg IV every 8 hours and Ceftazidime 2 g IV every 8 hours pending above
[2017-12-31 14:39] VITALS: BP 110/84
[2017-12-31 21:58] VITALS: BP 120/71
[2018-01-01 06:42] VITALS: BP 116/76
--- NOTE | 2018-01-01 07:34 | PN- Housestaff ---
See Addendum Subjective Follow-up For: Cellulitis of left lower extremity Subjective: Afebrile overnight. Patient is seen and examined in bed. Patient denies any acute events overnight. Patient states this morning that he still has the leg pain and notes some swelling of the pain as well. Patient's rash still elicits some tenderness and warmth. Patient had a change of antibiotic yesterday and we awaiting results of his follow up CT scan. Patient otherwise denies any fever, chills, fatigue, abdominal pain, chest pain, diarrhea, and constipation. Review of Systems Constitutional: Reports: see HPI. Objective Last 24 Hrs of Vital Signs/I&O Vital Signs Date Time Temp Pulse Resp B/P B/P Pulse O2 O2 Flow FiO2 Mean Ox Delivery Rate 01/01 0809 77 116/76 01/01 0642 98.1 77 18 11676 98 Room Air 12/31 2158 98.4 78 20 120/71 99 Room Air 12/31 1439 98.1 70 20 110/84 97 Room Air Intake & Output 01/01 1600 01/01 0800 01/01 0000 Intake Total 1000 940 Output Total 1300 600 Balance -300 340 Intake, IV 800 400 Intake, Oral 200 540 Output, Urine 1300 600 Physical Exam General Appearance: Alert, Oriented X3, Cooperative, No Acute Distress Skin: erythematous left leg extending from just distal to the knee and extending to the pannus, with slight hardening of overlying skin erythema HEENT: Atraumatic Neck: Supple, No JVD Cardiovascular: Regular Rate, Normal S1, Normal S2 Lungs: Clear to Auscultation Extremities: left lower extremity erythematous, patchy lesion extending from groin area left lower extremity erythematous, patchy lesion extending from groin area to middle left tibula Assessment/Plan Assessment: CT LOWER EXT WO IV CONTRAST - 1. There is some stranding, edema, in the subcutaneous tissue throughout the leg. There is no focal fluid collection, abscess or air collection. 2. No acute osseous abnormality of the left lower extremity. Stable chronic periosteal reaction of venous stasis of the fibula. 3. Lymphadenopathy in the groin and in the pelvis. 4. 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 5. Atherosclerotic vascular calcifications of the iliac vessels. On admission: T-max 99.2, heart rate: 80s, respiration rate 18-20, blood pressure 122/62, saturating between 94-100% on room air Labs: WBC 20.8; H/H 11.2/33.8; BUN 27, Cr 1.8 (last in 05.14) Etiology in this case with a presentation of left lower extremity erythema, swelling, and tenderness without any fevers or chills in a patient with a history of chronic venous stasis with nonhealing ulcers status post multiple debridements is likely related to a developing Cellulitis infection. Differential diagnosis also includes Necrotizing Fasciitis, Deep vein thrombosis , Contact dermatitis, Lymphedema, and Superficial thrombophlebitis. #Cellulitis, left lower extremity with nonhealing ulcers - Admitted to general medicine for management and observation of vitals - Discontinued IV Unasyn 3 mg every 6 hours; started Ceftazidime 2g and Clindamycin 900 mg, repeat blood cultures x2 and CT lower extremity due to incresing WBC count and Bandemia (12) - F/u blood cultures; pending - Left leg elevation per ID rec. - Wound care evaluation for nonhealing ulcers; xeroform dressing - Gabapentin 600 mg TID - Wound care management: Excisonal debridement of left leg due to cellulitis infection #Acute kidney injury - Cr 1.4 today - IV fluid hydration D5 1/2 NS 75 cc/hr - Monitor I&Os - Avoid nephrotoxic agents including NSAIDs #Home medications -Continue home medications as required DVT PPx. FC Problem List: 1. Cellulitis of leg Pain Ratin Pain Location: left lower leg Pain Goal: Pain 4 or less Pain Plan: pain meds prn Tomorrow's Labs & Rationales: routine
[2018-01-01 08:30] LABS: ABSOLUTE BASOPHIL COUNT 0.1 /CUMM (0.0-0.2); ABSOLUTE EOSINOPHIL COUNT 0.4 /CUMM (0.0-0.7); ABSOLUTE GRANULOCYTE CT 14.2 /CUMM (1.4-6.5); ABSOLUTE LYMPH COUNT 2.2 /CUMM (1.2-3.4); ABSOLUTE MONOCYTE COUNT 1.3 /CUMM (0.10-0.60); BASOPHIL % 0.4 % (0.0-2.0); EOSINOPHIL % 2.1 % (0-5); GRANULOCYTE % 78.5 % (42.2-75.2); HEMATOCRIT 30.1 % (42-52); MEAN CORPUSCULAR HGB 29.3 PG (27.0-31.0); MEAN CORPUSCULAR HGB CONC 33.3 G/DL (33.0-37.0); MEAN CORPUSCULAR VOLUME 87.7 FL (80.0-94.0); MEAN PLATELET VOLUME 7.1 FL (7.4-10.4); PLATELET COUNT 402 /CUMM (130-400); RBC DISTRIBUTION WIDTH 15.3 % (11.5-14.5); RED BLOOD CELL CT 3.44 /CUMM (4.70-6.10); WHITE BLOOD CELL COUNT 18.1 /CUMM (4.8-10.8)
--- NOTE | 2018-01-01 08:33 | CT SCAN REPORT ---
EXAMINATION: CT LOWER EXTREMITY WITH CONTRAST, LEFT CLINICAL INFORMATION: Left leg cellulitis. Rule out localized fluid collection or gas. COMPARISON: Left lower extremity CT performed on 12/27/2017 TECHNIQUE: A multidetector CT acquisition of the left leg is obtained following the administration of 95 mL of Optiray 320 intravenous contrast without complication. FINDINGS: Skin thickening and reticulation of the subcutaneous soft tissues throughout the left lower extremity that appears slightly progressed in comparison to the 12/27/2017 study, compatible with reported cellulitis. There is no soft tissue gas. There are soft tissue calcifications within the left lower extremity appear There is left inguinal lymphadenopathy that is similar to the prior examination. No acute fractures. No bone erosions. There is stable chronic periosteal reaction along the periphery of the fibula and to a lesser extent the tibia. 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 There are similar appearing varices throughout the imaged left lower extremity and there are varicoceles within the right and left scrotum. IMPRESSION: - Progressive skin thickening and reticulation of the soft tissues of the left lower extremity in keeping with reported cellulitis. No discrete peripherally enhancing fluid collections to suggest underlying abscess. Muscular flat planes remain preserved. There is no soft tissue gas. - There is left inguinal lymphadenopathy that is similar to the prior examination. - There is stable chronic periosteal reaction along the periphery of the fibula and to a lesser extent the tibia. - There is stable appearing extensive venous calcification involving the iliac veins extending into the imaged lower flattened SVC which has been present on examinations dated back to 2012 and may be the sequela of old venous thrombosis in these areas. There are similar appearing varices throughout the imaged left lower extremity and there are varicoceles within the right and left scrotum. - Left lower extremity venous system is not well characterized secondary to contrast bolus timing on this exam and if indicated, a left lower extremity Doppler ultrasound could be performed to confirm venous patency.
[2018-01-01 23:38] VITALS: BP 121/75
[2018-01-02 06:41] VITALS: BP 120/70
--- NOTE | 2018-01-02 07:57 | PN- Housestaff ---
See Addendum Subjective Follow-up For: Cellulitis of left lower extremity Subjective: The patient this morning, he was lying back in his bed, alert and oriented 3, in no acute distress. He believes that his leg has been improving, he did not complain of any pain, nausea, vomiting, abdominal pain, chest pain, lightheadedness, dizziness. No fever, no chills, no sweating. Half an hour after I visited the patient he had one episode of vomiting, but no signs of aspiration with the vomiting. Review of Systems Constitutional: Reports: see HPI. Objective Last 24 Hrs of Vital Signs/I&O Vital Signs Date Time Temp Pulse Resp B/P B/P Pulse O2 O2 Flow FiO2 Mean Ox Delivery Rate 01/02 0820 72 120/70 01/02 0641 98.2 72 20 120/70 98 Room Air 01/01 2338 98.8 72 18 121/75 97 Room Air Intake & Output 01/02 1600 01/02 0800 01/02 0000 Intake Total 920 1260 Output Total 400 1200 600 Balance -400 -280 660 Intake, IV 800 660 Intake, Oral 120 600 Number 1 0 Bowel Movements Output, 400 Emesis Output, Urine 1200 600 Physical Exam General Appearance: Alert, Oriented X3, Cooperative, No Acute Distress Skin: No Rashes Skin Temp/Moisture Exam: Warm/Dry Sepsis Skin Exam (color): Normal for Ethnicity HEENT: Atraumatic Cardiovascular: Regular Rate, Normal S1, Normal S2 Lungs: Clear to Auscultation, Normal Air Movement Abdomen: Normal Bowel Sounds, Soft, No Tenderness Extremities: LLE erythematous, robinson lesion extending from groin to middle left tibula Assessment/Plan Assessment: CT LOWER EXT WO IV CONTRAST - 1. There is some stranding, edema, in the subcutaneous tissue throughout the leg. There is no focal fluid collection, abscess or air collection. 2. No acute osseous abnormality of the left lower extremity. Stable chronic periosteal reaction of venous stasis of the fibula. 3. Lymphadenopathy in the groin and in the pelvis. 4. 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 5. Atherosclerotic vascular calcifications of the iliac vessels. On admission: T-max 99.2, heart rate: 80s, respiration rate 18-20, blood pressure 122/62, saturating between 94-100% on room air Labs: WBC 20.8; H/H 11.2/33.8; BUN 27, Cr 1.8 (last in Jun 10.5) Etiology in this case with a presentation of left lower extremity erythema, swelling, and tenderness without any fevers or chills in a patient with a history of chronic venous stasis with nonhealing ulcers status post multiple debridements is likely related to a developing Cellulitis infection. Differential diagnosis also includes Necrotizing Fasciitis, Deep vein thrombosis , Contact dermatitis, Lymphedema, and Superficial thrombophlebitis. #Cellulitis, left lower extremity with nonhealing ulcers ID consult appreciated, we will follow the current management. - Admitted to general medicine for management and observation of vitals - Discontinued IV Unasyn 3 mg every 6 hours; started Ceftazidime 2g and Clindamycin 900 mg, repeat blood cultures x2 and CT lower extremity due to incresing WBC count and Bandemia (12) - F/u blood cultures; pending - Left leg elevation per ID rec. - Wound care evaluation for nonhealing ulcers; xeroform dressing - Gabapentin 600 mg TID - Wound care management: Excisonal debridement of left leg due to cellulitis infection #Acute kidney injury - Cr 1.4 today - IV fluid hydration D5 1/2 NS 75 cc/hr - Monitor I&Os - Avoid nephrotoxic agents including NSAIDs #Home medications -Continue home medications as required DVT PPx. FC Problem List: 1. Cellulitis of leg Pain Ratin Pain Location: Left lower extremity, but the patient did not have any pain at the time of physical examination Pain Goal: Remain pain free Pain Plan: Pain medication as needed Tomorrow's Labs & Rationales: As indicated.
[2018-01-02 08:34] LABS: ABSOLUTE BASOPHIL COUNT 0 /CUMM (0.0-0.2); ABSOLUTE EOSINOPHIL COUNT 0.3 /CUMM (0.0-0.7); ABSOLUTE GRANULOCYTE CT 12.1 /CUMM (1.4-6.5); ABSOLUTE MONOCYTE COUNT 1.2 /CUMM (0.10-0.60); BASOPHIL % 0.2 % (0.0-2.0); EOSINOPHIL % 2.2 % (0-5); GRANULOCYTE % 77.1 % (42.2-75.2); HEMATOCRIT 29.9 % (42-52); MEAN CORPUSCULAR HGB 29.4 PG (27.0-31.0); MEAN CORPUSCULAR HGB CONC 33.4 G/DL (33.0-37.0); MEAN CORPUSCULAR VOLUME 88.1 FL (80.0-94.0); MEAN PLATELET VOLUME 7.2 FL (7.4-10.4); PLATELET COUNT 393 /CUMM (130-400); RBC DISTRIBUTION WIDTH 15.2 % (11.5-14.5); RED BLOOD CELL CT 3.39 /CUMM (4.70-6.10); WHITE BLOOD CELL COUNT 15.7 /CUMM (4.8-10.8)
--- NOTE | 2018-01-02 09:50 | PN- Infect Dx ---
Subjective Subjective: Afebrile. He is currently retching, and vomiting a significant amount of fluid. He does not report any abdominal pain and notes improvement in his left leg pain. Objective Last 24 Hrs of Vital Signs/I&O Vital Signs Date Time Temp Pulse Resp B/P B/P Pulse O2 O2 Flow FiO2 Mean Ox Delivery Rate 01/02 0820 72 120/70 01/02 0641 98.2 72 20 120/70 98 Room Air 01/01 2338 98.8 72 18 121/75 97 Room Air Intake & Output 01/02 1600 01/02 0800 01/02 0000 Intake Total 920 1260 Output Total 1200 600 Balance -280 660 Intake, IV 800 660 Intake, Oral 120 600 Number 1 0 Bowel Movements Output, Urine 1200 600 Physical Exam Other Physical Findings: He appears in obvious distress, retching and vomiting Abdomen is obese, soft, nontender with positive bowel sounds Extremities decreased erythema and tenderness of the left lower extremity, with persistent edema Results Last 24 Hours of Lab Results: Laboratory Tests 01/02 0655 Chemistry Sodium (137 - 145 mmol/L) 139 Potassium (3.5 - 5.1 mmol/L) 5.0 Chloride (98 - 107 mmol/L) 108 H Carbon Dioxide (22 - 30 mmol/L) 23 Anion Gap (5 - 16) 7 BUN (9 - 20 mg/dL) 20 Creatinine (0.7 - 1.2 mg/dL) 1.3 H Estimated GFR (>60 ml/min) 58 L BUN/Creatinine Ratio (7 - 25 %) 15.4 Hematology CBC w Diff Pending WBC Pending RBC Pending Hgb Pending Hct Pending MCV Pending MCH Pending MCHC Pending RDW Pending Plt Count Pending MPV Pending Gran % Pending Lymphocytes % Pending Monocytes % Pending Eosinophils % Pending Basophils % Pending Absolute Granulocytes Pending Absolute Lymphocytes Pending Absolute Monocytes Pending Absolute Eosinophils Pending Absolute Basophils Pending Last 24 Hours of Rock Results: Blood cultures December 31 negative Recent Imaging Studies: CT of the left lower extremity December 31 negative for any fluid collection or gas Assessment/Plan ID Impression: New onset of vomiting of unclear etiology, possibly related to his pain medication or other medications, including his antibiotics, now on Clindamycin and Ceftazidime, begun 2 days ago after 4 days of Unasyn, for a persistent cellulitis of the left lower extremity not clearly responsive to Unasyn and with an increase in his white blood cell count. Today's CBC is pending and, given the apparent improvement in his cellulitis, feel that his current antibiotics can be continued. The repeat CT scan is again negative for any evidence of a collection or gas. Suggestion: 1. Follow-up today CBC 2. Reevaluation of all of his medications in view of his recent retching and vomiting 3. Continue Clindamycin and Ceftazidime
[2018-01-02 14:18] VITALS: BP 130/74
[2018-01-02 21:30] VITALS: BP 110/80
[2018-01-03 06:32] VITALS: BP 117/74
--- NOTE | 2018-01-03 07:54 | PN- Housestaff ---
See Addendum Subjective Follow-up For: Cellulitis LLE Subjective: Afebrile overnight. Patient is seen and examined in bed in mild distress. Patient is actively nauseous and had at least one episode of vomiting last night. Patient does not know whether his rash is improving or not but does not decreased tenderness in his left leg area. Patient otherwise denies any diarrhea , constipation, chest pain, abdominal pain, and dizziness. Review of Systems Constitutional: Reports: see HPI. Objective Last 24 Hrs of Vital Signs/I&O Vital Signs Date Time Temp Pulse Resp B/P B/P Pulse O2 O2 Flow FiO2 Mean Ox Delivery Rate 01/03 0632 98.3 73 20 117/74 96 01/02 2130 98.3 69 16 110/80 98 Room Air 01/02 1418 98.2 78 18 130/74 99 Room Air 01/02 0820 72 120/70 Intake & Output 01/03 1600 01/03 0800 01/03 0000 Intake Total 920 520 Output Total Balance 920 520 Intake, IV 800 400 Intake, Oral 120 120 Physical Exam General Appearance: Alert, Oriented X3, Cooperative, Mild Distress Skin: erythematous left leg extending from proximal to distal knee HEENT: Atraumatic Neck: Supple, No JVD Cardiovascular: Regular Rate, Normal S1, Normal S2 Lungs: Clear to Auscultation Abdomen: Soft, No Tenderness Neurological: Normal Speech Assessment/Plan Assessment: CT LOWER EXT WO IV CONTRAST - 1. There is some stranding, edema, in the subcutaneous tissue throughout the leg. There is no focal fluid collection, abscess or air collection. 2. No acute osseous abnormality of the left lower extremity. Stable chronic periosteal reaction of venous stasis of the fibula. 3. Lymphadenopathy in the groin and in the pelvis. 4. 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 5. Atherosclerotic vascular calcifications of the iliac vessels. On admission: T-max 99.2, heart rate: 80s, respiration rate 18-20, blood pressure 122/62, saturating between 94-100% on room air Etiology in this case with a presentation of left lower extremity erythema, swelling, and tenderness without any fevers or chills in a patient with a history of chronic venous stasis with nonhealing ulcers status post multiple debridements is likely related to a developing Cellulitis infection. Differential diagnosis also includes Necrotizing Fasciitis, Deep vein thrombosis , Contact dermatitis, Lymphedema, and Superficial thrombophlebitis. #Cellulitis, left lower extremity with nonhealing ulcers ID consult appreciated, we will follow the current management. - Admitted to general medicine for management and observation of vitals - Discontinued IV Unasyn 3 mg every 6 hours; started Ceftazidime 2g and Clindamycin 900 mg, repeat blood cultures x2 and CT lower extremity due to incresing WBC count and Bandemia (12); repeat CT scan with no evidence of fluid collection or soft tissue gas - F/u blood cultures; pending - Left leg elevation per ID rec. - Wound care evaluation for nonhealing ulcers; xeroform dressing - Gabapentin 900 mg TID - Wound care management: Excisonal debridement of left leg due to cellulitis infection - Vascular consulted #Acute kidney injury - Cr 1.4 today - IV fluid hydration D5 1/2 NS 75 cc/hr - Monitor I&Os - Avoid nephrotoxic agents including NSAIDs #Home medications -Continue home medications as required DVT PPx. FC Problem List: 1. Cellulitis of leg Pain Ratin Pain Location: Left leg Pain Goal: Pain 4 or less Pain Plan: pain meds prn Tomorrow's Labs & Rationales: routine
[2018-01-03 08:57] LABS: ABSOLUTE BASOPHIL COUNT 0 /CUMM (0.0-0.2); ABSOLUTE EOSINOPHIL COUNT 0.4 /CUMM (0.0-0.7); ABSOLUTE GRANULOCYTE CT 12.7 /CUMM (1.4-6.5); ABSOLUTE MONOCYTE COUNT 1.5 /CUMM (0.10-0.60); BASOPHIL % 0.3 % (0.0-2.0); EOSINOPHIL % 2.2 % (0-5); GRANULOCYTE % 71.8 % (42.2-75.2); HEMATOCRIT 34.5 % (42-52); MEAN CORPUSCULAR HGB 28.9 PG (27.0-31.0); MEAN CORPUSCULAR VOLUME 87.8 FL (80.0-94.0); MEAN PLATELET VOLUME 7.2 FL (7.4-10.4); PLATELET COUNT 476 /CUMM (130-400); RBC DISTRIBUTION WIDTH 15.3 % (11.5-14.5); RED BLOOD CELL CT 3.93 /CUMM (4.70-6.10); WHITE BLOOD CELL COUNT 17.7 /CUMM (4.8-10.8)
--- NOTE | 2018-01-03 11:59 | PN- Infect Dx ---
Subjective Subjective: Afebrile. He has had no further vomiting. His left leg pain has improved. Objective Last 24 Hrs of Vital Signs/I&O Vital Signs Date Time Temp Pulse Resp B/P B/P Pulse O2 O2 Flow FiO2 Mean Ox Delivery Rate 01/03 0858 73 117/74 01/03 0632 98.3 73 20 117/74 96 01/02 2130 98.3 69 16 110/80 98 Room Air 01/02 1418 98.2 78 18 130/74 99 Room Air Intake & Output 01/03 1600 01/03 0800 01/03 0000 Intake Total 920 520 Output Total Balance 920 520 Intake, IV 800 400 Intake, Oral 120 120 Physical Exam Other Physical Findings: He appears comfortable in no acute distress Lungs are clear Heart regular rhythm with no murmur Abdomen is obese, soft, nontender with positive bowel sounds Back no CVA tenderness Extremities persistent patches of erythema of the left lower extremity, though decreased in intensity, induration and tenderness Results Last 24 Hours of Lab Results: Laboratory Tests 01/03 07 Chemistry Sodium (137 - 145 mmol/L) 139 Potassium (3.5 - 5.1 mmol/L) 5.0 Chloride (98 - 107 mmol/L) 106 Carbon Dioxide (22 - 30 mmol/L) 19 L Anion Gap (5 - 16) 14 BUN (9 - 20 mg/dL) 18 Creatinine (0.7 - 1.2 mg/dL) 1.3 H Estimated GFR (>60 ml/min) 58 L BUN/Creatinine Ratio (7 - 25 %) 13.8 Hematology CBC w Diff NO MAN DIFF REQ WBC (4.8 - 10.8 /CUMM) 17.7 H RBC (4.70 - 6.10 /CUMM) 3.93 L Hgb (14.0 - 18.0 G/DL) 11.4 L Hct (42 - 52 %) 34.5 L MCV (80.0 - 94.0 FL) 87.8 MCH (27.0 - 31.0 PG) 28.9 MCHC (33.0 - 37.0 G/DL) 33.0 RDW (11.5 - 14.5 %) 15.3 H Plt Count (130 - 400 /CUMM) 476 H MPV (7.4 - 10.4 FL) 7.2 L Gran % (42.2 - 75.2 %) 71.8 Lymphocytes % (20.5 - 51.1 %) 16.9 L Monocytes % (1.7 - 9.3 %) 8.8 Eosinophils % (0 - 5 %) 2.2 Basophils % (0.0 - 2.0 %) 0.3 Absolute Granulocytes (1.4 - 6.5 /CUMM) 12.7 H Absolute Lymphocytes (1.2 - 3.4 /CUMM) 3.0 Absolute Monocytes (0.10 - 0.60 /CUMM) 1.5 H Absolute Eosinophils (0.0 - 0.7 /CUMM) 0.4 Absolute Basophils (0.0 - 0.2 /CUMM) 0 Last 24 Hours of Rock Results: Blood cultures December 31 negative Assessment/Plan ID Impression: Stable, with his temperatures remaining normal, but with his white blood cell count again increased today despite a change in his antibiotic regimen to Clindamycin and Ceftazidime 3 days ago and despite what appears to be decreasing inflammation of the left lower extremity. He has had no further vomiting but his CBC may suggest an element of hemoconcentration, with his H&H and platelets also increased. Suggestion: 1. Ensure adequate fluids 2. Recheck CBC in the a.m. 3. Continue Clindamycin and Ceftazidime pending above
[2018-01-03 14:00] VITALS: BP 131/78
[2018-01-03 22:43] VITALS: BP 110/74
[2018-01-04 06:33] VITALS: BP 126/90
--- NOTE | 2018-01-04 07:04 | PN- Housestaff ---
See Addendum Subjective Follow-up For: Cellulitis LLE Subjective: Afebrile overnight. Patient is seen and examined in bed in mild distress and anxiety with tremors of right hand. Patient is actively nauseous with no episodes of vomiting reported today or overnight. Patient has less tenderness in his left leg area. Patient otherwise denies any diarrhea, constipation, chest pain, abdominal pain, and dizziness. Leukocytosis improved to 11.9 from 17.7. Day 5 of IV antibiotics. Review of Systems Constitutional: Denies: see HPI. Objective Last 24 Hrs of Vital Signs/I&O Vital Signs Date Time Temp Pulse Resp B/P B/P Pulse O2 O2 Flow FiO2 Mean Ox Delivery Rate 01/04 0800 Room Air 01/04 0633 97.5 72 20 126/90 98 Room Air 01/03 2243 97.4 72 20 110/74 99 Room Air Intake & Output 01/04 1600 01/04 0800 01/04 0000 Intake Total 1280 1280 Output Total 1100 1250 600 Balance -1100 30 680 Intake, IV 800 800 Intake, Oral 480 480 Number 0 1 Bowel Movements Output, Urine 1100 1250 600 Physical Exam General Appearance: Alert, Oriented X3, Mild Distress, Anxious/tremor of right hand Skin: LLE cellulitis RLE skin changes HEENT: PERRLA, EOMI, Mucous Membr. moist/pink Cardiovascular: Regular Rate, Normal S1, Normal S2 Lungs: Clear to Auscultation, Normal Air Movement Abdomen: Normal Bowel Sounds, Soft, No Tenderness Extremities: LLE cellulitis; tender to palpation; no wheeping Vascular: Normal Pulses, Pulses Symmetrical Current Medications: Current Medications Sig/Malinda Start time Last Medication Dose Route Stop Time Status Admin Acetaminophen 650 MG Q6P PRN 12/27 1800 AC 01/03 PO 1500 Acetaminophen 1,000 MG Q6P PRN 12/27 1800 AC 12/30 IV 2217 Atorvastatin Calcium 10 MG DAILY 12/27 192 AC 01/04 PO 0803 Ceftazidime 2,000 MG IQ8 12/31 1600 AC 01/04 IV 0802 Clindamycin 900 MG IQ8 12/31 1600 AC 01/04 Dextrose/Water 50 ML IV 0802 Fluoxetine HCl 30 MG DAILY 12/28 0933 AC 01/04 PO 0803 Gabapentin 900 MG Q8P PRN 12/31 1045 AC PO Lorazepam 0.5 MG TIDPRN PRN 12/30 1100 AC 01/04 PO 01/06 1059 0802 Metoprolol Tartrate 25 MG DAILY 12/27 1921 AC 01/04 PO 0803 Nystatin 1 FRED TID 12/27 2100 AC 01/04 TOP 0803 Ondansetron HCl 4 MG Q6P PRN 12/27 1800 AC 12/29 IV 1348 Oxycodone/ 1 TAB Q8P PRN 12/31 1030 AC 01/04 Acetaminophen PO 1009 Rivaroxaban 15 MG 1700 12/28 1700 AC 01/03 PO 1614 Sodium Chloride 1,000 ML Q10H 12/31 1400 AC 01/04 IV 1114 Last 24 Hrs of Lab/Rock Results Last 24 Hrs of Labs/Mics: Laboratory Tests 01/04/18 0643: CBC w Diff NO MAN DIFF REQ, RBC 3.70 L, MCV 87.2, MCH 28.7, MCHC 32.9 L, RDW 15.1 H, MPV 7.2 L, Gran % 70.8, Lymphocytes % 17.8 L, Monocytes % 9.4 H, Eosinophils % 1.7, Basophils % 0.3, Absolute Granulocytes 8.4 H, Absolute Lymphocytes 2.1, Absolute Monocytes 1.1 H, Absolute Eosinophils 0.2, Absolute Basophils 0 Assessment/Plan Assessment: Patient is a 52-year-old morbidly obese male with past medical history significant for HTN, HLD, chronic lower extremity insufficiency, chronic nonhealing ulcers, recurrent cellulitis, multiple debridements and skin grafts, 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 Patient was hemodynamically stable on admission. CT was negative for any evidence of necrotizing fasciitis. Patient was evaluated by infectious disease started on unasyn. Currently on clindamycin + ceftazadime. 01/04/18: Afebrile. Leukocytosis trending down to 11.9 from 17.7. Day 5 IV clindamycin + ceftazadime. Anxious with tremor of right hand this morning. No vomiting reported. Denies significant pain with improvement of LLE tenderness. Cellulitis LLE * Day 5 IV clindamycin + ceftazadime * continue to follow ID recommendations * WBC trending down to 11.8 rom 17.7 * Wound care evaluation for nonhealing ulcers; xeroform dressing * Gabapentin 900 mg TID * Wound care management: Excisonal debridement of left leg due to cellulitis infection * Vascular consulted Acute kidney injury on CKD stage 3 (baseline 1.5). 1.8 on admission * Cr 1.3 today * IV fluid hydration NS 100/hr * Monitor I&Os * Avoid nephrotoxic agents including NSAIDs Hypertension * continue metoprolol Hyperlipidemia * continue atorvastatin Depression * continue fluoxetine DVT PPx: Xarelto Code Status: Full Code Problem List: 1. Cellulitis of leg 2. Leukocytosis Pain Ratin Pain Location: left lower extremity Pain Goal: Pain 4 or less Pain Plan: as per pain pathway Tomorrow's Labs & Rationales: cbc bep
[2018-01-04 09:19] LABS: ABSOLUTE BASOPHIL COUNT 0 /CUMM (0.0-0.2); ABSOLUTE EOSINOPHIL COUNT 0.2 /CUMM (0.0-0.7); ABSOLUTE GRANULOCYTE CT 8.4 /CUMM (1.4-6.5); ABSOLUTE LYMPH COUNT 2.1 /CUMM (1.2-3.4); ABSOLUTE MONOCYTE COUNT 1.1 /CUMM (0.10-0.60); BASOPHIL % 0.3 % (0.0-2.0); EOSINOPHIL % 1.7 % (0-5); GRANULOCYTE % 70.8 % (42.2-75.2); HEMATOCRIT 32.2 % (42-52); MEAN CORPUSCULAR HGB 28.7 PG (27.0-31.0); MEAN CORPUSCULAR HGB CONC 32.9 G/DL (33.0-37.0); MEAN CORPUSCULAR VOLUME 87.2 FL (80.0-94.0); MEAN PLATELET VOLUME 7.2 FL (7.4-10.4); PLATELET COUNT 411 /CUMM (130-400); RBC DISTRIBUTION WIDTH 15.1 % (11.5-14.5); WHITE BLOOD CELL COUNT 11.9 /CUMM (4.8-10.8)
[2018-01-04 15:05] VITALS: BP 111/64
--- NOTE | 2018-01-04 15:12 | PN- Infect Dx ---
Subjective Subjective: Afebrile. He feels improved with decreased pain in the left leg and with no further nausea or vomiting. Objective Last 24 Hrs of Vital Signs/I&O Vital Signs Date Time Temp Pulse Resp B/P B/P Pulse O2 O2 Flow FiO2 Mean Ox Delivery Rate 01/04 1505 98.0 71 20 111/64 97 Room Air 01/04 0800 Room Air 01/04 0633 97.5 72 20 126/90 98 Room Air 01/03 2243 97.4 72 20 110/74 99 Room Air Intake & Output 01/04 1600 01/04 0800 01/04 0000 Intake Total 1310 1280 1280 Output Total 1100 1250 600 Balance 210 30 680 Intake, IV 750 800 800 Intake, Oral 560 480 480 Number 0 1 Bowel Movements Output, Urine 1100 1250 600 Physical Exam Other Physical Findings: He appears mildly anxious but overall more comfortable and in no acute distress Abdomen is obese, soft, nontender with positive bowel sounds Extremities decreased erythema, induration and tenderness of the left lower extremity, with several bullous lesions Results Last 24 Hours of Lab Results: Laboratory Tests 01/04 0643 Hematology CBC w Diff NO MAN DIFF REQ WBC (4.8 - 10.8 /CUMM) 11.9 H RBC (4.70 - 6.10 /CUMM) 3.70 L Hgb (14.0 - 18.0 G/DL) 10.6 L Hct (42 - 52 %) 32.2 L MCV (80.0 - 94.0 FL) 87.2 MCH (27.0 - 31.0 PG) 28.7 MCHC (33.0 - 37.0 G/DL) 32.9 L RDW (11.5 - 14.5 %) 15.1 H Plt Count (130 - 400 /CUMM) 411 H MPV (7.4 - 10.4 FL) 7.2 L Gran % (42.2 - 75.2 %) 70.8 Lymphocytes % (20.5 - 51.1 %) 17.8 L Monocytes % (1.7 - 9.3 %) 9.4 H Eosinophils % (0 - 5 %) 1.7 Basophils % (0.0 - 2.0 %) 0.3 Absolute Granulocytes (1.4 - 6.5 /CUMM) 8.4 H Absolute Lymphocytes (1.2 - 3.4 /CUMM) 2.1 Absolute Monocytes (0.10 - 0.60 /CUMM) 1.1 H Absolute Eosinophils (0.0 - 0.7 /CUMM) 0.2 Absolute Basophils (0.0 - 0.2 /CUMM) 0 Last 24 Hours of Rock Results: Blood cultures December 31 negative Assessment/Plan ID Impression: Stable, with his temperatures remaining normal and a marked decrease in his white blood cell count, on Clindamycin and Ceftazidime, Day 4 of treatment for a left lower extremity cellulitis not clearly responsive to 4 days of Unasyn. Suggestion: 1. Continue Clindamycin and Ceftazidime, with an eventual change to an oral regimen (for example Clindamycin and Ciprofloxacin) if he continues to improve
[2018-01-04 22:43] VITALS: BP 120/90
[2018-01-05 06:32] VITALS: BP 118/78
--- NOTE | 2018-01-05 06:57 | PN- Housestaff ---
See Addendum Subjective Follow-up For: Lower Extremity Cellulitis Subjective: Patient has continued left lower extremity pain which he claims to be a 7/10. However, he denies any fevers, chills, nausea or vomiting. No acute overnight events. Patient on day 6 of IV clindamycin and ceftazadime. Patients WBC trended downwards and is cleared for discharge today. Patient educated on taking his oral antibiotics for 4 more days in order to complete a full course. He will be provided a prescription for the medications accordingly. Review of Systems Constitutional: Denies: chills. Objective Last 24 Hrs of Vital Signs/I&O Vital Signs Date Time Temp Pulse Resp B/P B/P Pulse O2 O2 Flow FiO2 Mean Ox Delivery Rate 01/05 1415 97.9 76 18 120/86 99 Room Air 01/05 0845 68 118/78 01/05 0632 98.0 68 18 118/78 95 Room Air 01/04 2243 98.5 69 18 120/90 98 Room Air Intake & Output 01/05 1600 01/05 0800 01/05 0000 Intake Total 1012 771 3898 Output Total 400 550 400 Balance 093 37 5455 Intake, IV 500 600 700 Intake, Oral 600 880 Output, Urine 400 550 400 Physical Exam General Appearance: Alert, Oriented X3, Mild Distress, anxiety/tremors Skin: left lower extremity cellulitis HEENT: EOMI, Mucous Membr. moist/pink Cardiovascular: Regular Rate, Normal S1, Normal S2 Lungs: Clear to Auscultation, Normal Air Movement Abdomen: Normal Bowel Sounds, Soft, No Tenderness Extremities: No Clubbing, No Cyanosis, left lower extremity dressing at lower ankle; visible cellulitis improved and healing above knee Vascular: Normal Pulses, Pulses Symmetrical Current Medications: Current Medications Sig/Malinda Start time Last Medication Dose Route Stop Time Status Admin Acetaminophen 650 MG Q6P PRN 12/27 1800 AC 01/03 PO 1500 Acetaminophen 1,000 MG Q6P PRN 12/27 1800 AC 12/30 IV 2217 Atorvastatin Calcium 10 MG DAILY 12/27 1921 AC 01/05 PO 0845 Ceftazidime 2,000 MG Q8H 01/05 1000 AC 01/05 IV 1033 Ceftazidime 2,000 MG IQ8 12/31 1600 DC 01/05 IV 0234 Clindamycin 900 MG Q8H 08/29 1000 AC 01/05 Dextrose/Water 50 ML IV 1239 Clindamycin 900 MG IQ8 12/31 1600 DC 01/05 Dextrose/Water 50 ML IV 0234 Fluoxetine HCl 30 MG DAILY 12/28 0933 AC 01/05 PO 0845 Gabapentin 900 MG Q8P PRN 12/31 1045 AC PO Lorazepam 0.5 MG TIDPRN PRN 12/30 1100 AC 01/05 PO 01/06 1059 1537 Metoprolol Tartrate 25 MG DAILY 12/27 1921 AC 01/05 PO 0845 Nystatin 1 FRED TID 12/27 2100 AC 01/05 TOP 1347 Ondansetron HCl 4 MG Q6P PRN 12/27 1800 AC 12/29 IV 1348 Oxycodone/ 1 TAB Q8P PRN 12/31 1030 AC 01/05 Acetaminophen PO 0845 Rivaroxaban 15 MG 1700 12/28 1700 AC 01/05 PO 1616 Sodium Chloride 1,000 ML Q10H 12/31 1400 DC 01/05 IV 1034 Last 24 Hrs of Lab/Rock Results Last 24 Hrs of Labs/Mics: Laboratory Tests 01/05/18 0708: Anion Gap 7, Estimated GFR 58 L, BUN/Creatinine Ratio 14.6, CBC w Diff NO MAN DIFF REQ, RBC 3.60 L, MCV 87.0, MCH 29.1, MCHC 33.5, RDW 15.3 H, MPV 7.0 L, Gran % 69.2, Lymphocytes % 18.6 L, Monocytes % 9.0, Eosinophils % 2.8, Basophils % 0.4, Absolute Granulocytes 6.3, Absolute Lymphocytes 1.7, Absolute Monocytes 0.8 H, Absolute Eosinophils 0.3, Absolute Basophils 0 Assessment/Plan Assessment: Patient is a 52-year-old morbidly obese male with past medical history significant for HTN, HLD, chronic lower extremity insufficiency, chronic nonhealing ulcers, recurrent cellulitis, multiple debridements and skin grafts, 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 Patient was hemodynamically stable on admission. CT was negative for any evidence of necrotizing fasciitis. Patient was evaluated by infectious disease started on unasyn. Regimen included IV clindamycin + ceftazadime. WBC trended down with improvement of the infection. Will be discharged on oral antibiotics accordingly. Patient recieved 6 day treatment of IV clindamycin and ceftazadime. 01/05/18: Afebrile. Leukocytosis trending down to 9.1 from 11.9. Patient seen by ID and will be discharged on oral antibiotics including Ciprofloxacin 750 mg p.o. every 12 hours for 4 more days and Clindamycin to 450 mg p.o. every 8 hours for 4 more days. Patient provided perscriptions for these medications. Cellulitis LLE * Day 6 IV clindamycin + ceftazadime; will discontinue IV medications; patient will transition to oral for discharge as per ID recommendations Acute kidney injury on CKD stage 3 (baseline 1.5). 1.8 on admission * Cr 1.3 today * IV fluid hydration NS 100/hr will be discontinued prior to discharge * Monitor I&Os * Avoid nephrotoxic agents including NSAIDs Hypertension * continue metoprolol Hyperlipidemia * continue atorvastatin Depression * continue fluoxetine DVT PPx: Xarelto Code Status: Full Code Problem List: 1. Cellulitis of leg Pain Ratin Pain Location: left lower extremity Pain Goal: Pain 4 or less Pain Plan: as per pain pathway Tomorrow's Labs & Rationales: Discharging
[2018-01-05 08:12] LABS: ABSOLUTE BASOPHIL COUNT 0 /CUMM (0.0-0.2); ABSOLUTE EOSINOPHIL COUNT 0.3 /CUMM (0.0-0.7); ABSOLUTE GRANULOCYTE CT 6.3 /CUMM (1.4-6.5); ABSOLUTE LYMPH COUNT 1.7 /CUMM (1.2-3.4); ABSOLUTE MONOCYTE COUNT 0.8 /CUMM (0.10-0.60); BASOPHIL % 0.4 % (0.0-2.0); EOSINOPHIL % 2.8 % (0-5); GRANULOCYTE % 69.2 % (42.2-75.2); HEMATOCRIT 31.3 % (42-52); MEAN CORPUSCULAR HGB 29.1 PG (27.0-31.0); MEAN CORPUSCULAR HGB CONC 33.5 G/DL (33.0-37.0); PLATELET COUNT 376 /CUMM (130-400); RBC DISTRIBUTION WIDTH 15.3 % (11.5-14.5); WHITE BLOOD CELL COUNT 9.1 /CUMM (4.8-10.8)
[2018-01-05] MEDS ORDERED: CIPROFLOXACIN500 M2 PO ×2 (13:40→14:48)
[2018-01-05] MEDS ORDERED: CLINDAMYCIN HC300 M1 PO ×2 (13:40→14:48)
[2018-01-05] MEDS ORDERED: METOPROLOL SUCC25 M1 PO (13:44)
[2018-01-05] MEDS ORDERED: ATIVAN0.5 M1 PO ×2 (13:56→14:48)
[2018-01-05] MEDS ORDERED: PERCOCET 5-3251 EACH PO ×2 (13:56→14:48)
--- NOTE | 2018-01-05 14:05 | PN- Infect Dx ---
Subjective Subjective: Afebrile without complaints Objective Last 24 Hrs of Vital Signs/I&O Vital Signs Date Time Temp Pulse Resp B/P B/P Pulse O2 O2 Flow FiO2 Mean Ox Delivery Rate 01/05 0845 68 118/78 01/05 0632 98.0 68 18 118/78 95 Room Air 01/04 2243 98.5 69 18 120/90 98 Room Air 01/04 1600 Room Air 01/04 1505 98.0 71 20 111/64 97 Room Air Intake & Output 01/05 1600 01/05 0800 01/05 0000 Intake Total 600 1580 Output Total 550 400 Balance 50 1180 Intake, IV 600 700 Intake, Oral 880 Output, Urine 550 400 Physical Exam Other Physical Findings: He appears comfortable in no acute distress Extremities decreased erythema and induration of the left leg, with several bullous lesions, nontender to palpation Results Last 24 Hours of Lab Results: Laboratory Tests 01/05 0708 Chemistry Sodium (137 - 145 mmol/L) 138 Potassium (3.5 - 5.1 mmol/L) 4.7 Chloride (98 - 107 mmol/L) 108 H Carbon Dioxide (22 - 30 mmol/L) 22 Anion Gap (5 - 16) 7 BUN (9 - 20 mg/dL) 19 Creatinine (0.7 - 1.2 mg/dL) 1.3 H Estimated GFR (>60 ml/min) 58 L BUN/Creatinine Ratio (7 - 25 %) 14.6 Hematology CBC w Diff NO MAN DIFF REQ WBC (4.8 - 10.8 /CUMM) 9.1 RBC (4.70 - 6.10 /CUMM) 3.60 L Hgb (14.0 - 18.0 G/DL) 10.5 L Hct (42 - 52 %) 31.3 L MCV (80.0 - 94.0 FL) 87.0 MCH (27.0 - 31.0 PG) 29.1 MCHC (33.0 - 37.0 G/DL) 33.5 RDW (11.5 - 14.5 %) 15.3 H Plt Count (130 - 400 /CUMM) 376 MPV (7.4 - 10.4 FL) 7.0 L Gran % (42.2 - 75.2 %) 69.2 Lymphocytes % (20.5 - 51.1 %) 18.6 L Monocytes % (1.7 - 9.3 %) 9.0 Eosinophils % (0 - 5 %) 2.8 Basophils % (0.0 - 2.0 %) 0.4 Absolute Granulocytes (1.4 - 6.5 /CUMM) 6.3 Absolute Lymphocytes (1.2 - 3.4 /CUMM) 1.7 Absolute Monocytes (0.10 - 0.60 /CUMM) 0.8 H Absolute Eosinophils (0.0 - 0.7 /CUMM) 0.3 Absolute Basophils (0.0 - 0.2 /CUMM) 0 Last 24 Hours of Rock Results: Blood cultures December 31 negative Assessment/Plan ID Impression: Improved, with his temperatures and white blood cell count now both normal, on Clindamycin and Ceftazidime, Day 6 of treatment for a left lower extremity cellulitis not responsive to 4 days of Unasyn. Suggestion: 1. Discontinue Ceftazidime 2. Begin Ciprofloxacin 750 mg p.o. every 12 hours for 4 more days 3. Change Clindamycin to 450 mg p.o. every 8 hours for 4 more days
[2018-01-05 14:15] VITALS: BP 120/86
[2018-01-05] MEDS ORDERED: GABAPENTIN300 M2 PO (16:25)
== END 2018-01-05 18:27 | disposition home health service (06) | DRG 603 ==
LOC: ERH 10:30 → ENTRNSPT 12:25 → EDTRNSPT 13:02 → EDTRNSPTTYP 13:02 → CMPTRNSPT 13:40 → ERHI 14:09 → 2NB 14:09 → ENRESERV 12-28 17:40 → ENTRNSPT 12-28 18:37 → EDTRNSPTSTS 12-28 18:55 → EDTRNSPT 12-28 18:55 → 2NB 12-28 19:19 → CMPTRNSPT 12-28 19:22 → 2NB 01-05 18:27
PROVIDERS: Internal Medicine; Physical Medicine & Rehabilitation Pain Medicine; Physician Assistant Medical; Student in an Organized Health Care Education/Training Program
PROC: 0HBKXZZ Excision of Right Lower Leg Skin, External Approach (ICD-10-PCS; principal; 2017-12-30)
DX: L03.116 Cellulitis of left lower limb (principal); Z68.41 Body mass index [BMI] 40.0-44.9, adult; N17.9 Acute kidney failure, unspecified; L97.229 Non-pressure chronic ulcer of left calf with unspecified severity; L97.219 Non-pressure chronic ulcer of right calf with unspecified severity; D68.2 Hereditary deficiency of other clotting factors; D68.51 Activated protein C resistance; B37.2 Candidiasis of skin and nail; I87.8 Other specified disorders of veins; Z86.718 Personal history of other venous thrombosis and embolism; Z79.01 Long term (current) use of anticoagulants; Z95.828 Presence of other vascular implants and grafts; E66.01 Morbid (severe) obesity due to excess calories; I87.2 Venous insufficiency (chronic) (peripheral); E78.5 Hyperlipidemia, unspecified; I12.9 Hypertensive chronic kidney disease with stage 1 through stage 4 chronic kidney disease, or unspecified chronic kidney disease; E11.22 Type 2 diabetes mellitus with diabetic chronic kidney disease; N18.3 Chronic kidney disease, stage 3 (moderate); F32.9 Major depressive disorder, single episode, unspecified; F10.10 Alcohol abuse, uncomplicated
CPT/HCPCS: 2NBP; ERO; 36415; 36592; 81001; 82436; 87040; 87086; 93005; 93010; 97116-GO; 97161-GP; J0131; J0713; J2405; J7042

== ENCOUNTER 2018-01-27 11:07 | Inpatient (IN) | payer OTHER ==
[~2018-01-27] VITALS: Ht 172.7 cm; Wt 139.8 kg
[~2018-01-27 11:07] MED LIST changes: +ATIVAN0.5 M1 PO; +CIPROFLOXACIN500 M2 PO; +CLINDAMYCIN HC300 M1 PO; +METOPROLOL SUCC25 M1 PO; +PROZAC20 M2 PO; +TRAZODONE HCL50 M1 PO; +XARELTO15 M1 PO
--- NOTE | 2018-01-27 13:12 | ED UPPER/LOWER EXTREMITY COMPL ---
History of Present Illness General Chief Complaint: General Adult Stated Complaint: SIB DR. FAIRBANKS FOR ?CELLULITIS Source: patient Exam Limitations: no limitations Vital Signs & Intake/Output Vital Signs & Intake/Output Vital Signs Date Time Temp Pulse Resp B/P B/P Pulse O2 O2 Flow FiO2 Mean Ox Delivery Rate 01/27 1442 Room Air 01/27 1131 100.3 01/27 1127 100.3 104 18 163/94 96 Room Air Allergies Coded Allergies: No Known Allergies (12/27/17) Triage Note: 53 Y/O MALE C/O CELLULITIS TO L LOWER EXTREMITY, ONSET WEEKS AGO AND WORSENING PER PT. PT STATES HE WAS ADMITTED FOR SAME. UNABLE TO VISUALIZE IN TRIAGE DUE TO CLOTHING. FEBRILE AT 100.3 - MEDICATED WITH TYLENOL PER SAURABH HUERTA IN TRIAGE. Triage Nurses Notes Reviewed? yes (Vianney ESCOBAR,Tru Garcia) Reconcile Medications Atorvastatin Calcium 10 MG TABLET 1 TAB PO DAILY HEART HEALTH (Reported) Fluoxetine HCl (Prozac) 20 MG CAPSULE 1 CAP PO DAILY MENTAL HEALTH (Reported) Gabapentin 300 MG CAPSULE 1 CAP PO BID ANXIETY/NEUROPATHY (Reported) Gabapentin 300 MG CAPSULE 900 MG PO Q8P PRN ANXIETY Lorazepam (Ativan) 0.5 MG TABLET 0.5 TAB PO TID Anxiety Do not drive or operate heavy machinery while on this medication. Metoprolol Succinate 25 MG TAB 1 TAB PO DAILY HEART (Reported) Rivaroxaban (Xarelto) 15 MG TABLET 1 TAB PO DAILY DVT (Reported) Trazodone HCl 50 MG TABLET 1 TAB PO QPM SLEEP (Reported) HPI: 52-year-old male with past medical history of chronic venous stasis with nonhealing ulcers status post multiple debridements, skin graft, history of cellulitis with MRSA, Pseudomonas, Proteus, MSSA, history of factor V Leiden deficiency, history of DVTs of both lower extremities currently on rivaroxaban and with IVC filter, history of GI bleed secondary to hemorrhoids, anemia, chronic kidney disease, depression, anxiety presenting to the [facility] after being sent in by the wound care for concern of cellulitis of his left lower extremity. Patient is poor historian and unable to give history. Denies fever, chills, N/V/D at thtis time3. Denies chest pain or SOB. (Mk ESCOBAR,Sobia) Past History Travel History Traveled to [place] past 21 day No Medical History Neurological: NONE EENT: NONE Cardiovascular: NONE Respiratory: NONE Gastrointestinal: NONE Hepatic: NONE Renal: chronic kidney disease Musculoskeletal: disk herniation, Chronic bilateral lower limb ulcer, I and D several times Psychiatric: depression, Alcohol use disorder Endocrine: obesity, borderline dm Blood Disorders: DVT Cancer(s): NONE History of MRSA: Yes History of VRE: No History of CDIFF: No Surgical History Surgical History: Debridement and skin graft of LE Psychosocial History Who do you live with Patient/Self Services at Home Nursing What is your primary language Macedonian Tobacco Use: Quit >30 days ago Family History Family History, If Any: FATHER (Hypertension and heart disease). MOTHER (Hypertension). (Vianney ESCOBAR,Tru Garcia) Medical History Any Pertinent Medical History? see below for history Surgical History Surgical History: Debridement and skin graft of LE Family History Hx Contributory? No (Sobia Terrazas MD) Review of Systems Review of Systems Constitutional: Reports: see HPI. Comments Limited by patient's mental status (Sobia Terrazas MD) Physical Exam Physical Exam General Appearance: no apparent distress Head: atraumatic, normal appearance Neck: supple, full range of motion Cardiovascular/Respiratory: normal breath sounds, no respiratory distress Gastrointestinal: obese, non tender Comments: There is bilateral brawny edema and chronic venous insufficiency bilaterally left greater than right with warm non tender erythema extending from the medial left lE into the thigh (Sobia Terrazas MD) Progress Plan of Care: Orders Procedure Date/time Status LACTIC ACID 01/27 1429 Active BLOOD CULTURE 01/27 1129 Active LACTIC ACID 01/27 1129 Complete COMPREHENSIVE METABOLIC PANEL 01/27 112 Complete CBC WITHOUT DIFFERENTIAL 01/27 112 Complete Laboratory Tests 01/27/18 1455: Anion Gap 13, Estimated GFR 45 L, BUN/Creatinine Ratio 16.3, Glucose 123 H, Lactic Acid 1.2, Calcium 8.6, Total Bilirubin 0.8, AST 40, ALT 29, Alkaline Phosphatase 53, Total Protein 7.2, Albumin 3.9, Globulin 3.3, Albumin/Globulin Ratio 1.2, CBC w Diff MAN DIFF ORDERED, RBC 3.68 L, MCV 87.3, MCH 28.8, MCHC 33.0, RDW 16.0 H, MPV 6.6 L, Gran % 93.7 H, Lymphocytes % 3.3 L, Monocytes % 3.0, Eosinophils % 0, Basophils % 0, Absolute Granulocytes 18.0 H, Segmented Neutrophils 92 H, Band Neutrophils 4, Absolute Lymphocytes 0.6 L, Lymphocytes 3 L, Monocytes 1 L, Absolute Monocytes 0.6, Absolute Eosinophils 0, Absolute Basophils 0, Platelet Estimate ADEQUATE, Polychromasia 1+, Anisocytosis 1+ Microbiology 01/27 1455 BLOOD: Blood Culture - RECD 01/27 1129 BLOOD: Blood Culture - ORD (Vianney ESCOBAR,Tru Garcia) Differential Diagnosis: arterial insufficiency, cellulitis, septic arthritis Comments: Recent admission reviewed which reorts that patient improved with Ceftazidiime and Clindamycin which will be restarted now. Discussed with Dr. Deluna who recommends admission. John who will admit (Sobia Terrazas MD) Departure Departure Condition: Stable Referrals: Madeline ESCOBAR,Wilder Garcia (PCP/Family) Departure Forms: Customer Survey General Discharge Information (Tru Faith MD) Departure Disposition: STILL A PATIENT Clinical Impression Primary Impression: Cellulitis of left leg (Sobia Terrazas MD)
[2018-01-27 15:06] LABS: ABSOLUTE BASOPHIL COUNT 0 /CUMM (0.0-0.2); ABSOLUTE EOSINOPHIL COUNT 0 /CUMM (0.0-0.7); ABSOLUTE LYMPH COUNT 0.6 /CUMM (1.2-3.4); ABSOLUTE MONOCYTE COUNT 0.6 /CUMM (0.10-0.60); BASOPHIL % 0 % (0.0-2.0); EOSINOPHIL % 0 % (0-5); GRANULOCYTE % 93.7 % (42.2-75.2); HEMATOCRIT 32.1 % (42-52); MEAN CORPUSCULAR HGB 28.8 PG (27.0-31.0); MEAN CORPUSCULAR VOLUME 87.3 FL (80.0-94.0); MEAN PLATELET VOLUME 6.6 FL (7.4-10.4); PLATELET COUNT 303 /CUMM (130-400); RED BLOOD CELL CT 3.68 /CUMM (4.70-6.10); WHITE BLOOD CELL COUNT 19.2 /CUMM (4.8-10.8)
--- NOTE | 2018-01-27 16:58 | History & Physical ---
Diony Riggs 01/27/18 1577: General Information and HPI MD Statement: I have seen and personally examined DINO VIEYRA and documented this H&P. The patient is a 53 year old M who presented with a patient stated chief complaint of SENT IN FOR RECURRENT LOWER EXTREMITY CELLULITIS. Source of Information: patient, old records Exam Limitations: unable to give history, poor historian, physical impairment History of Present Illness: 53 year old man w/ pmh of chronic venous stasis with nonhealing ulcers s/p multiple debridements, skin grafts, history of cellulitis w/ MRSA, factor V leiden deficiency w/ hx of dvt on rivaroxaban presents to [facility] from his doctor's office for concern of recurrent lower extremity cellulitis. Patient is unable to provide much meaningful history. It is known that he was seen at [place], discharged Jan 05 on ciprofloxacin. It is unclear whether he improved during the interim. IN the ED, patient was found to have leukocytosis to 19.2 and erythematous left lower extremity. He is being admitted to general medicine floor for management of his recurrent infection. Allergies/Medications Allergies: Coded Allergies: No Known Allergies (12/27/17) Home Med list Atorvastatin Calcium 10 MG TABLET 1 TAB PO DAILY HEART HEALTH (Reported) Fluoxetine HCl (Prozac) 20 MG CAPSULE 1 CAP PO DAILY MENTAL HEALTH (Reported) Gabapentin 300 MG CAPSULE 1 CAP PO BID ANXIETY/NEUROPATHY (Reported) Gabapentin 300 MG CAPSULE 900 MG PO Q8P PRN ANXIETY Lorazepam (Ativan) 0.5 MG TABLET 0.5 TAB PO TID Anxiety Do not drive or operate heavy machinery while on this medication. Metoprolol Succinate 25 MG TAB 1 TAB PO DAILY HEART (Reported) Rivaroxaban (Xarelto) 15 MG TABLET 1 TAB PO DAILY DVT (Reported) Trazodone HCl 50 MG TABLET 1 TAB PO QPM SLEEP (Reported) Past History Travel History Traveled to [place] past 21 day No Medical History Neurological: NONE EENT: NONE Cardiovascular: NONE Respiratory: NONE Gastrointestinal: NONE Hepatic: NONE Renal: chronic kidney disease Musculoskeletal: disk herniation, Chronic bilateral lower limb ulcer, I and D several times Psychiatric: depression, Alcohol use disorder Endocrine: obesity, borderline dm Blood Disorders: DVT Cancer(s): NONE History of MRSA: Yes History of VRE: No History of CDIFF: No Surgical History Surgical History: Debridement and skin graft of LE Past Family/Social History Family History Relations & Conditions if any FATHER (Hypertension and heart disease). MOTHER (Hypertension). Psychosocial History Services at Home: Nursing Functional Ability ADLs Independent: dressing, eating, toileting, bathing. Ambulation: electric wheelchair Review of Systems Review of Systems Constitutional: Reports: chills. Denies: diaphoresis, fever, weakness. EENTM: Reports: no symptoms. Cardiovascular: Reports: no symptoms. Respiratory: Reports: cough. GI: Reports: no symptoms. Musculoskeletal: Reports: no symptoms. Skin: Reports: dryness, erythema, rash. Neurological/Psychological: Reports: no symptoms. Exam & Diagnostic Data Last 24 Hrs of Vital Signs/I&O Vital Signs Date Time Temp Pulse Resp B/P B/P Pulse O2 O2 Flow FiO2 Mean Ox Delivery Rate 01/27 1442 Room Air 01/27 1131 100.3 01/27 1127 100.3 104 18 163/94 96 Room Air Intake & Output 01/27 1600 01/27 0800 01/27 0000 Intake Total Output Total Balance Patient 301 lb Weight Weight Reported by Patient Measurement Method Physical Exam General Appearance Alert, Oriented X3, Cooperative, Mild Distress Skin erythema and scaling left lower extremity Skin Temp/Moisture Exam: Warm/Dry Neck No JVD, No thryomegaly Cardiovascular Regular Rate, Normal S1, Normal S2, No Murmurs, Gallops, Rubs Lungs Clear to Auscultation, Normal Air Movement, loud cough Abdomen Soft, No Tenderness, No Hepatospenomegaly Neurological Normal Speech, Strength at 5/5 X4 Ext, Normal Tone, Sensation Intact Extremities No Cyanosis, chronic venous insufficiency Last 24 Hrs of Labs/Rock: Laboratory Tests 01/27/18 1455: Anion Gap 13, Estimated GFR 45 L, BUN/Creatinine Ratio 16.3, Glucose 123 H, Lactic Acid 1.2, Calcium 8.6, Total Bilirubin 0.8, AST 40, ALT 29, Alkaline Phosphatase 53, Total Protein 7.2, Albumin 3.9, Globulin 3.3, Albumin/Globulin Ratio 1.2, CBC w Diff MAN DIFF ORDERED, RBC 3.68 L, MCV 87.3, MCH 28.8, MCHC 33.0, RDW 16.0 H, MPV 6.6 L, Gran % 93.7 H, Lymphocytes % 3.3 L, Monocytes % 3.0, Eosinophils % 0, Basophils % 0, Absolute Granulocytes 18.0 H, Segmented Neutrophils 92 H, Band Neutrophils 4, Absolute Lymphocytes 0.6 L, Lymphocytes 3 L, Monocytes 1 L, Absolute Monocytes 0.6, Absolute Eosinophils 0, Absolute Basophils 0, Platelet Estimate ADEQUATE, Polychromasia 1+, Anisocytosis 1+ Microbiology 01/27 1637 BLOOD: Blood Culture - RECD 01/27 1455 BLOOD: Blood Culture - RECD Assessment/Plan Assessment: 53 year old man with past medical history of HTN, HLD, factor V leiden mutation on xarelto, and obesity presented to the ED for recurrent cellulitis after being discharged from here Jan 05. Problem list/plan: Cellulitis -Admit to general medicine floor -I's and O's per protocol, vitals q shift -presume this is new cellulitis given timing -restart clindamycin and ceftazidime -follow up blood cultures -ID consult -wound care consult -gentle hydration -trend leukocytosis Hypercoaguable state 2/2 factor V leiden mutation -continue rivaroxaban Depression/anxiety -continue home fluoxetine, lorazepam, gabapentin, trazadone Hyperlipidemia -continue home atorvastatin Hypertension -continue home metoprolol DVT prophylaxis: Lovenox; ALPS contraindicated due to LE cellulitis Regular diet Patient is full code As Ranked By This Provider Problem List: 1. Cellulitis of leg 2. Cellulitis of left leg 3. CKD (chronic kidney disease) 4. Obesity Core Measures/Misc (01/24) Acute Coronary Syndrome ACS Diagnosis: No Congestive Heart Failure Congestive Heart Failure Diagnosis No Cerebrovascular Accident CVA/TIA Diagnosis: No VTE (View Protocol) VTE Risk Factors Age>40 No Mechanical VTE Prophylaxis d/t Medical Contraindication (LE ) No VTE Pharm Prophylaxis d/t NA PharmProphylax ordered Sepsis (View protocol) Sepsis Present: No If YES complete Sepsis Event Note If YES complete Sepsis Event Note Deandre ESCOBAR,Kulwinder 01/27/186: Core Measures/Misc (01/24) Sepsis (View protocol) If YES complete Sepsis Event Note If YES complete Sepsis Event Note Resident Review Statement Resident Statement: examined this patient, discussed with international operations manager, agreed with international operations manager Other Findings: 53-year-old gentleman the past medical history significant for chronic venous status with nonhealing ulcers status post multiple debridement, skin graft, recent history of lower extremity cellulitis with MRSA, history of DVT on rivaroxaban presents to [facility] ED after being sent by wound center for evaluation of left lower extremity "cellulitis"> recently discharged in January 05 for the same presentation of left lower extremity cellulitis which was refractory to Unasyn and was eventually treated with ceftazidime and clindamycin that was transitioned to oral Cipro and clindamycin upon discharge to complete a 14 day treatment course. Patient is unclear whether there was complete resolution of his previous lower extremity cellulitis. He however does endorses his left lower extremity cellulitis did better and denied any fever or chills until last week when he noticed his lower extremity was getting worse. Today he presents with complaints of chills, and a Tmax of 100.5 laboratory workup remarkable for leukocytosis of 18. Doppler -ve for DVT. Impression * Left lower leg erythema with warmness. Differential includes cellulitis versus worsening of chronic venous stasis. Even though the affected extremity is not tender to touch, it is warm to touch, in addition he is also complaining of chills, a Tmax of and presents with 100.5 and significant leukocytosis. All these factors are suggestive of cellulitic infection. Given that the patient gives us a history of interval improvement right after his last discharge and only for the symptoms to recur last week, his presentation is more likely a case of recurrent cellulitis rather than the lack of resolution of his previous cellulitic infection. This is important as it will determine whether we can start the same antibiotics that he responded to last time. There is no presence of any purulent discharge, abscess, or carbuncles. * History of chronic diseases: Chronic venous status, factor V Leiden deficiency with history of DVT. Plan Admit to general medicine floor Continue with ceftazidime and clindamycin for now, Follow-up blood cultures Trend white count Obtain ID consult to help with optimization of antibiotic therapy Obtain wound consult Continue home meds DVT prophylaxis: Addressed by rivaroxaban CODE STATUS: Full code Gordo ESCOBAR,Elizabeth 01/28/18 0744: Core Measures/Misc (01/24) Sepsis (View protocol) If YES complete Sepsis Event Note If YES complete Sepsis Event Note Attending MD Review Statement Attending Statement Attending MD Statement: examined this patient, discuss w/resident/PA/ANIMAL SHELTER SUPERVISOR, agreed w/resident/PA/ANIMAL SHELTER SUPERVISOR, reviewed EMR data (avail), discussed with nursing, discussed with case mgmt, reviewed images Attending Assessment/Plan: See medical brief addendum note dated 01/27/18
--- NOTE | 2018-01-27 17:18 | Admission Certification ---
Admission Certification Certification Statement - As attending physician, I certify that at the time of - admission, based on clinical presentation, severity of - symptoms, need for further diagnostic testing and - therapeutic interventions, and risk of adverse outcomes - without in-hospital treatment, in my clinical assessment, - this patient requires an acute hospital stay for a minimum - of two nights or longer. I have also considered psychsocial - factors such as support system, advanced age, financial - issues, cognitive issues, and failed out-patient treatments, - past re-admission history, safety of patient, and lack of - compliance as applicable. Specific rationale supporting this admission is: Cellulitis in patient with recurrent cellulitis.
--- NOTE | 2018-01-27 17:19 | PN- Att Addend ---
Attending Addendum Attending Brief Note 53-year-old male past medical history of hypertension, hyperlipidemia, hypercoagulable state with factor V Leyden gene mutation on Xarelto and obesity. He was recently here and was treated for cellulitis, he was seen by ID and treated with Clinda and Cipro. He was discharged on January 05. He returned to the wound care center and he says he was sent in by Dr. Raza for persistent cellulitis. He has a low-grade temp of 100.3, leukocytosis and his wound was just recently wrapped the wound care center. At this point will bring him into [facility] med, he already got ceftaz and Clinda in the emergency room, given the fact that the most recent cellulitis was unresponsive to Unasyn. Will continue the Clinda, ceftaz. Will follow up on blood cultures, gently hydrate him, follow-up on the white count. Wound care and ID consult in a.m.
[2018-01-27 21:30] VITALS: BP 142/77
--- NOTE | 2018-01-28 07:50 | PN- Housestaff ---
Emily Baldwin 01/28/18 0749: Subjective Follow-up For: LLE cellulitis Subjective: Patient was seen and examined at bedside. He complains of excrutiating pain in the LLE. He does not endorse fevers, chills, nausea, vomiting. Review of Systems Constitutional: Reports: see HPI. Objective Last 24 Hrs of Vital Signs/I&O Vital Signs Date Time Temp Pulse Resp B/P B/P Pulse O2 O2 Flow FiO2 Mean Ox Delivery Rate 01/28 1030 113 131/78 01/28 0752 98.2 113 18 131/78 97 01/28 0059 98 01/27 2130 98.3 98 20 142/77 98 Room Air 01/27 1951 100.1 115 18 125/71 97 Room Air 01/27 1919 100.4 115 20 138/71 99 Room Air 01/27 1916 100.5 01/27 1442 Room Air 01/27 1131 100.3 01/27 1127 100.3 104 18 163/94 96 Room Air Intake & Output 01/28 1600 01/28 0800 01/28 0000 Intake Total 720 440 Output Total 200 700 Balance 520 -260 Intake, IV 600 200 Intake, Oral 120 240 Number 0 2 Bowel Movements Output, Urine 200 700 Patient 307 lb Weight Weight Bed scale Measurement Method Physical Exam General Appearance: Alert, Oriented X3, Cooperative, No Acute Distress Skin: No Rashes Neck: Supple Cardiovascular: Regular Rate, Normal S1, Normal S2, No Murmurs Lungs: Clear to Auscultation Abdomen: Normal Bowel Sounds, Soft, No Tenderness Extremities: extensive cellulitis over LLE extending upto the groin, erythematous and warm and tender to touch, changes of chronic venous stasis on bilteral lower limbs Vascular: Normal Pulses Assessment/Plan Assessment: 53 year old man with past medical history of HTN, HLD, factor V leiden mutation on xarelto, and obesity presented to the ED for recurrent cellulitis after being discharged from here Jan 05. Problem list/plan: 1. Cellulitis -Patient contiues to be on Clindamycin and Ceftazidime. -ID consult plaaced. Will follow recommendations -Wound care consult placed. Will follow up recommendations -We will follow up on his blood cultures -WBC: 19.0-->12.7 today -Pain management per pathway 2. Mild CKD -Creatinine: 1.5 -Will continue him on gentle hydration -We would trend BEP 2. Hypercoaguable state 2/2 factor V leiden mutation -continue rivaroxaban 3.Depression/anxiety -continue home fluoxetine, lorazepam, gabapentin, trazadone 4. Hyperlipidemia -continue home atorvastatin 5.Hypertension -continue home metoprolol DVT prophylaxis: Lovenox; ALPS contraindicated due to LE cellulitis Regular diet Patient is full code Problem List: 1. Cellulitis of left leg Pain Ratin Pain Location: LLE Pain Goal: Remain pain free Pain Plan: pathway Tomorrow's Labs & Rationales: cbc Bonnie Flores 01/28/18 1114: Attending MD Review Statement Attending Statement Attending MD Statement: examined this patient, discuss w/resident/PA/HERBICIDE SERVICE SALES REPRESENTATIVE, agreed w/resident/PA/HERBICIDE SERVICE SALES REPRESENTATIVE, discussed with family, reviewed EMR data (avail), discussed with nursing, discussed with case mgmt, reviewed images, amended to note Attending Assessment/Plan: 53-year-old male past medical history of hypertension, hyperlipidemia, hypercoagulable state with factor V Leyden gene mutation on Xarelto and obesity. Previous hospitalisation with cellultiis and discharged on oral antibiotics now comes with worsening and extensive cellultiis extending upto medial thigh not involving scrotum. Overnight c/o pain in left leg. Obtain markings of left lower extremity to determine extent of cellultiis as course progresses. Leukocytosis improving. Continue broad spectrum antibiotics, ID consult. Will follow up on blood cultures, gently hydrate him. Wound consult Dr Raza. GI/DVT prophylaxis full code.
[2018-01-28 07:52] VITALS: BP 131/78
[2018-01-28 08:14] LABS: ABSOLUTE BASOPHIL COUNT 0 /CUMM (0.0-0.2); ABSOLUTE EOSINOPHIL COUNT 0 /CUMM (0.0-0.7); ABSOLUTE LYMPH COUNT 0.8 /CUMM (1.2-3.4); ABSOLUTE MONOCYTE COUNT 0.8 /CUMM (0.10-0.60); BASOPHIL % 0 % (0.0-2.0); EOSINOPHIL % 0.1 % (0-5); GRANULOCYTE % 86.9 % (42.2-75.2); HEMATOCRIT 27.5 % (42-52); MEAN CORPUSCULAR HGB 29.6 PG (27.0-31.0); MEAN CORPUSCULAR HGB CONC 33.7 G/DL (33.0-37.0); MEAN PLATELET VOLUME 7.5 FL (7.4-10.4); PLATELET COUNT 229 /CUMM (130-400); RBC DISTRIBUTION WIDTH 16.4 % (11.5-14.5); RED BLOOD CELL CT 3.12 /CUMM (4.70-6.10); WHITE BLOOD CELL COUNT 12.7 /CUMM (4.8-10.8)
[2018-01-28 14:00] VITALS: BP 102/60
--- NOTE | 2018-01-28 14:22 | Cons- Infect Disease ---
General Information and HPI Consulting Request Date of Consult: 01/28/18 Requested By: Bonnie Flores MD Reason for Consult: Cellulitis of the left lower extremity Source of Information: patient, old records History of Present Illness: This is a 53-year-old man with a history of factor V Leiden deficiency, bilateral lower extremity DVTs, status post IVC filter and maintained on Xarelto , chronic kidney disease and venous insufficiency, with chronic nonhealing ulcers of both lower extremities, status post multiple debridements and skin grafts and recurrent cellulitis, hospitalized 1 month prior to admission with a cellulitis of the left lower extremity, found to be afebrile with a marked leukocytosis, treated initially with Unasyn with no improvement and with a persistent leukocytosis and changed to Clindamycin and Ceftazidime, with improvement in his cellulitis and normalization of his white blood cell count, discharged on Clindamycin and Ciprofloxacin to complete a 10 day course of treatment, admitted on January 27 with several days of increasing erythema and pain in the medial aspect of his left thigh and over the anterior tibial aspect of his left leg, with chills but no documented fevers, and with intermittent diarrhea, with no nausea, vomiting or abdominal pain. On admission he was febrile to 100.3. Laboratory data revealed a white blood cell count of 19,000, BUN/creatinine 26 and 1.6, with normal liver enzymes. He was begun on Clindamycin and Ceftazidime, with his temperatures and white blood cell count improved today. Allergies/Medications Allergies: Coded Allergies: No Known Allergies (12/27/17) Home Med List: Atorvastatin Calcium 10 MG TABLET 1 TAB PO DAILY HEART HEALTH (Reported) Fluoxetine HCl (Prozac) 20 MG CAPSULE 1 CAP PO DAILY MENTAL HEALTH (Reported) Gabapentin 300 MG CAPSULE 1 CAP PO BID ANXIETY/NEUROPATHY (Reported) Gabapentin 300 MG CAPSULE 900 MG PO Q8P PRN ANXIETY Lorazepam (Ativan) 0.5 MG TABLET 0.5 TAB PO TID Anxiety Do not drive or operate heavy machinery while on this medication. 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 CHRONIC NON-HEALING LEG ULCERS. SKIN GRAFTS. Family History Relations & Conditions If Any: FATHER (Hypertension and heart disease). MOTHER (Hypertension). Psychosocial History Services at Home: Nursing Smoking Status: Former Smoker Functional Ability ADLs Independent: dressing, eating, toileting, bathing. Ambulation: electric wheelchair Review of Systems Review of Systems Respiratory: Reports: cough. GI: Reports: diarrhea. Denies: abdominal pain, nausea, vomiting. Genitourinary: Reports: dysuria. All Other Systems: Reviewed and Negative Exam & Diagnostic Data Last 24 Hrs of Vital Signs/I&O Vital Signs Date Time Temp Pulse Resp B/P B/P Pulse O2 O2 Flow FiO2 Mean Ox Delivery Rate 01/28 1030 113 131/78 01/28 0752 98.2 113 18 131/78 97 01/28 0059 98 01/27 2130 98.3 98 20 142/77 98 Room Air 01/27 1951 100.1 115 18 125/71 97 Room Air 01/27 1919 100.4 115 20 138/71 99 Room Air 01/27 1916 100.5 01/27 1442 Room Air Intake & Output 01/28 1600 01/28 0800 01/28 0000 Intake Total 720 440 Output Total 200 700 Balance 520 -260 Intake, IV 600 200 Intake, Oral 120 240 Number 0 2 Bowel Movements Output, Urine 200 700 Patient 307 lb 307 lb Weight Weight Bed scale Measurement Method Physical Exam Other Physical Findings: He is awake and alert in no acute distress. T-max 100.5. Skin reveals no rash. HEENT exam is negative. Neck is supple with no adenopathy. Lungs are clear. Heart regular rhythm with no murmur. Abdomen is obese, soft, nontender with positive bowel sounds. Back questionable right CVA tenderness. Extremities left leg swelling, with erythema and tenderness on the medial aspect; anterior tibial erythema and tenderness surrounding the ulceration; right leg with an Unna boot in place. Neuro is without focality. Last 24 Hours of Lab Results: Laboratory Tests 01/28 01/27 01/27 0610 2345 1950 Chemistry Sodium (137 - 145 mmol/L) 136 L Potassium (3.5 - 5.1 mmol/L) 4.3 Chloride (98 - 107 mmol/L) 106 Carbon Dioxide (22 - 30 mmol/L) 21 L Anion Gap (5 - 16) 9 BUN (9 - 20 mg/dL) 23 H Creatinine (0.7 - 1.2 mg/dL) 1.5 H Estimated GFR (>60 ml/min) 49 L BUN/Creatinine Ratio (7 - 25 %) 15.3 Lactic Acid (0.7 - 2.1 mmol/L) 1.0 1.5 Hematology CBC w Diff NO MAN DIFF REQ WBC (4.8 - 10.8 /CUMM) 12.7 H RBC (4.70 - 6.10 /CUMM) 3.12 L Hgb (14.0 - 18.0 G/DL) 9.3 L Hct (42 - 52 %) 27.5 L MCV (80.0 - 94.0 FL) 88.0 MCH (27.0 - 31.0 PG) 29.6 MCHC (33.0 - 37.0 G/DL) 33.7 RDW (11.5 - 14.5 %) 16.4 H Plt Count (130 - 400 /CUMM) 229 MPV (7.4 - 10.4 FL) 7.5 Gran % (42.2 - 75.2 %) 86.9 H Lymphocytes % (20.5 - 51.1 %) 6.5 L Monocytes % (1.7 - 9.3 %) 6.5 Eosinophils % (0 - 5 %) 0.1 Basophils % (0.0 - 2.0 %) 0 Absolute Granulocytes (1.4 - 6.5 /CUMM) 11.0 H Absolute Lymphocytes (1.2 - 3.4 /CUMM) 0.8 L Absolute Monocytes (0.10 - 0.60 /CUMM) 0.8 H Absolute Eosinophils (0.0 - 0.7 /CUMM) 0 Absolute Basophils (0.0 - 0.2 /CUMM) 0 01/27 1455 Chemistry Sodium (137 - 145 mmol/L) 138 Potassium (3.5 - 5.1 mmol/L) 4.1 Chloride (98 - 107 mmol/L) 104 Carbon Dioxide (22 - 30 mmol/L) 21 L Anion Gap (5 - 16) 13 BUN (9 - 20 mg/dL) 26 H Creatinine (0.7 - 1.2 mg/dL) 1.6 H Estimated GFR (>60 ml/min) 45 L BUN/Creatinine Ratio (7 - 25 %) 16.3 Glucose (65 - 99 mg/dL) 123 H Lactic Acid (0.7 - 2.1 mmol/L) 1.2 Calcium (8.4 - 10.2 mg/dL) 8.6 Total Bilirubin (0.2 - 1.3 mg/dL) 0.8 AST (17 - 59 U/L) 40 ALT (21 - 72 U/L) 29 Alkaline Phosphatase (< 127 U/L) 53 Total Protein (6.3 - 8.2 g/dL) 7.2 Albumin (3.5 - 5.0 g/dL) 3.9 Globulin (1.9 - 4.2 gm/dL) 3.3 Albumin/Globulin Ratio (1.1 - 2.2 %) 1.2 Hematology CBC w Diff MAN DIFF ORDERED WBC (4.8 - 10.8 /CUMM) 19.2 H RBC (4.70 - 6.10 /CUMM) 3.68 L Hgb (14.0 - 18.0 G/DL) 10.6 L Hct (42 - 52 %) 32.1 L MCV (80.0 - 94.0 FL) 87.3 MCH (27.0 - 31.0 PG) 28.8 MCHC (33.0 - 37.0 G/DL) 33.0 RDW (11.5 - 14.5 %) 16.0 H Plt Count (130 - 400 /CUMM) 303 MPV (7.4 - 10.4 FL) 6.6 L Gran % (42.2 - 75.2 %) 93.7 H Lymphocytes % (20.5 - 51.1 %) 3.3 L Monocytes % (1.7 - 9.3 %) 3.0 Eosinophils % (0 - 5 %) 0 Basophils % (0.0 - 2.0 %) 0 Absolute Granulocytes (1.4 - 6.5 /CUMM) 18.0 H Segmented Neutrophils (42.2 - 75.2 %) 92 H Band Neutrophils (0.0 - 5.0 %) 4 Absolute Lymphocytes (1.2 - 3.4 /CUMM) 0.6 L Lymphocytes (20.5 - 51.1 %) 3 L Monocytes (1.7 - 9.3 %) 1 L Absolute Monocytes (0.10 - 0.60 /CUMM) 0.6 Absolute Eosinophils (0.0 - 0.7 /CUMM) 0 Absolute Basophils (0.0 - 0.2 /CUMM) 0 Platelet Estimate (ADEQUATE) ADEQUATE Polychromasia 1+ Anisocytosis 1+ Last 24 Hours of Rock Results: Blood cultures 2 January 27 negative Assessment/Plan Assessment/Plan Impression: This is a 53-year-old man with a history of venous insufficiency, with chronic nonhealing ulcers of both lower extremities and recurrent cellulitis, most recently 1 month prior to admission when he was hospitalized with a left leg cellulitis, treated initially with Unasyn with no improvement and eventually changed to Clindamycin and Ceftazidime, with improvement in his cellulitis and normalization of his white blood cell count, admitted on January 27 with several days of increasing erythema and pain in the medial aspect of his left thigh and over the anterior tibial aspect of his left leg, with intermittent diarrhea, found to have a low-grade fever with a leukocytosis. His clinical picture is again consistent with a cellulitis of the left lower extremity. Given his improvement on his recent admission suspect this represents a new infection, likely related to the nonhealing anterior tibial ulcer on his left lower extremity and chronic venous insufficiency. He appears to have improved with no further fevers and with a decrease in his white blood cell count, though suspect that some of his leukocytosis may represent hemoconcentration; therefore feel that his current antibiotic regimen can be continued, though the doses may need to be increased given his morbid obesity. An underlying process involving his tibia, for example osteomyelitis, could be considered, though the CT scans on his recent admission only revealed stable, chronic periosteal reaction, unchanged from a previous scan 5 years earlier. He does report diarrhea and, given his recent antibiotics, C. difficile should be ruled out. He also reports mild dysuria, with questionable right flank tenderness, and a urinalysis and urine culture should be obtained, though the results may be affected by his antibiotics. Suggestion: 1. Elevation of the left leg 2. Vascular surgery evaluation 3. Consider MRI of the left lower extremity to rule out underlying osteomyelitis 4. Obtain a urinalysis and urine culture 5. Stool for C. difficile if diarrhea 6. Increase Ceftazidime to 2 g IV every 8 hours 7. Increase Clindamycin to 900 mg IV every [address] Ferraro will be covering over the weekend Consult Acknowledgment - Thank you for your consult request.
[2018-01-28 21:33] VITALS: BP 100/60
[2018-01-29 06:37] VITALS: BP 102/68
[2018-01-29 08:31] LABS: ABSOLUTE BASOPHIL COUNT 0 /CUMM (0.0-0.2); ABSOLUTE EOSINOPHIL COUNT 0.2 /CUMM (0.0-0.7); ABSOLUTE GRANULOCYTE CT 6.1 /CUMM (1.4-6.5); ABSOLUTE LYMPH COUNT 1.8 /CUMM (1.2-3.4); ABSOLUTE MONOCYTE COUNT 0.9 /CUMM (0.10-0.60); BASOPHIL % 0.4 % (0.0-2.0); EOSINOPHIL % 2.2 % (0-5); GRANULOCYTE % 67.7 % (42.2-75.2); HEMATOCRIT 27.1 % (42-52); MEAN CORPUSCULAR HGB 29.3 PG (27.0-31.0); MEAN CORPUSCULAR HGB CONC 33.3 G/DL (33.0-37.0); MEAN PLATELET VOLUME 7.6 FL (7.4-10.4); PLATELET COUNT 233 /CUMM (130-400); RBC DISTRIBUTION WIDTH 16.4 % (11.5-14.5); RED BLOOD CELL CT 3.08 /CUMM (4.70-6.10); WHITE BLOOD CELL COUNT 8.9 /CUMM (4.8-10.8)
--- NOTE | 2018-01-29 09:01 | Cons- Vascular Surgery ---
General Information and HPI Consulting Request Date of Consult: 01/29/18 Requested By: Mark ESCOBAR,Bonnie Reason for Consult: left leg stasis ulcer Source of Information: patient, old records Exam Limitations: poor historian History of Present Illness: This is a 53-year-old man with a history of factor V Leiden deficiency, bilateral lower extremity DVTs, status post IVC filter and maintained on Xarelto , chronic kidney disease and venous insufficiency, with chronic nonhealing ulcers of both lower extremities, status post multiple debridements and skin grafts and recurrent cellulitis. He is unable to tell me if he has seen a vascular surgeon in the past. He is seeing Dr Domínguez for wound care. Allergies/Medications Allergies: Coded Allergies: No Known Allergies (12/27/17) Home Med List: Atorvastatin Calcium 10 MG TABLET 1 TAB PO DAILY HEART HEALTH (Reported) Fluoxetine HCl (Prozac) 20 MG CAPSULE 1 CAP PO DAILY MENTAL HEALTH (Reported) Gabapentin 300 MG CAPSULE 1 CAP PO BID ANXIETY/NEUROPATHY (Reported) Gabapentin 300 MG CAPSULE 900 MG PO Q8P PRN ANXIETY Lorazepam (Ativan) 0.5 MG TABLET 0.5 TAB PO TID Anxiety Do not drive or operate heavy machinery while on this medication. Metoprolol Succinate 25 MG TAB 1 TAB PO DAILY HEART (Reported) Rivaroxaban (Xarelto) 15 MG TABLET 1 TAB PO DAILY DVT (Reported) Trazodone HCl 50 MG TABLET 1 TAB PO QPM SLEEP (Reported) Current Medications: Current Medications Sig/Malinda Start time Last Medication Dose Route Stop Time Status Admin Acetaminophen 500 MG Q6P PRN 01/27 1900 AC 01/27 PO 1916 Atorvastatin Calcium 10 MG DAILY 01/28 0900 AC 01/29 PO 0746 Ceftazidime 2,000 MG IQ8 01/28 1600 AC 01/29 IV 0739 Ceftazidime 1,000 MG IQ8 01/28 0000 DC 01/28 IV 0800 Clindamycin 900 MG IQ8 01/28 1600 AC 01/29 Dextrose/Water 50 ML IV 0739 Clindamycin 600 MG IQ8 01/28 0000 DC 01/28 Dextrose/Water 50 ML IV 0800 Fluoxetine HCl 20 MG DAILY 01/28 0900 AC 01/29 PO 0745 Gabapentin 300 MG BID 01/27 2100 AC 01/28 PO 2144 Guaifenesin/Codeine 10 ML Q6P PRN 01/27 1730 AC 01/28 Phosphate PO 0125 Heparin Sodium 5,000 UNIT Q8 01/27 2200 AC 01/29 (Porcine) SC 0606 Metoprolol Succinate 25 MG DAILY 01/28 0900 AC 01/29 PO 0746 Oxycodone HCl 5 MG Q6P PRN 01/27 1900 AC PO Oxycodone HCl 10 MG Q6P PRN 01/27 1900 AC 01/29 PO 0606 Oxycodone/ 1 TAB Q6P PRN 01/28 1545 DC Acetaminophen PO Patient Medication 1 ED ONE ONE 01/28 1845 DC 01/28 Teaching ED 01/28 184 2147 Rivaroxaban 15 MG DAILY 01/27 1856 AC 01/29 PO 0746 Sodium Chloride 1,000 ML Q20H 01/27 1930 AC 01/28 IV 1503 Trazodone HCl 50 MG QPM 01/27 2100 AC 01/28 PO 2144 Past History Medical History Blood Transfusion Hx: No Neurological: NONE EENT: NONE Cardiovascular: chronic venous insuff Respiratory: NONE Gastrointestinal: NONE Hepatic: NONE Renal: chronic kidney disease Musculoskeletal: disk herniation Psychiatric: depression, Alcohol use disorder Endocrine: obesity, borderline dm Blood Disorders: DVT Cancer(s): 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 CHRONIC NON-HEALING LEG ULCERS. SKIN GRAFTS. Family History Relations & Conditions If Any: FATHER (Hypertension and heart disease). MOTHER (Hypertension). Psychosocial History Services at Home: Nursing Smoking Status: Former Smoker Functional Ability ADLs Independent: dressing, eating, toileting, bathing. Ambulation: electric wheelchair Review of Systems Review of Systems: as above Exam & Diagnostic Data Vital Signs and I&O Vital Signs Date Time Temp Pulse Resp B/P B/P Pulse O2 O2 Flow FiO2 Mean Ox Delivery Rate 01/29 0746 81 120/80 01/29 0637 98.4 83 20 102/68 95 Room Air 01/28 2133 98.2 81 18 100/60 98 Room Air 01/28 1400 98.8 91 20 102/60 99 Room Air 01/28 1030 113 131/78 Intake & Output 01/29 1600 01/29 0800 01/29 0000 01/28 1600 01/28 0800 01/28 0000 Intake Total 244 780 1550 720 440 Output Total 150 350 200 700 Balance 800 350 845 520 -260 Intake, IV 600 300 575 600 200 Intake, Oral 200 200 620 120 240 Number 0 0 2 Bowel Movements Output, Urine 150 350 200 700 Patient 307 lb 307 lb Weight Weight Bed scale Measurement Method Physical Exam: gen a&o x3 neck supple chest cta b heart rrr s1s2 abd soft ext b/l LE edema, LLE erythema and draining ulcer ant 3cm and lateral calf [id number] pulses b/l 2+ dp Assessment/Plan Assessment/Plan Pt 53 y/o w chronic edema and stasis type ulcers and current cellulitis LLE cont abx cont wound care with compression and elevation will f/u as outpt to ensure adequate progress, and will do venous insuff w/u should he fail to improve Problem List: 1. Cellulitis 2. chronic leg ulcers Copies To: Ana ESCOBAR,Chance Judge Consult Acknowledgment - Thank you for your consult request. Attending Review Statement Attending Statement Attending Statement: examined this patient
--- NOTE | 2018-01-29 09:38 | PN- Housestaff ---
Brando Tipton 01/29/18 0937: Subjective Follow-up For: Left lower extremity cellulitis Subjective: Patient seen and examined at bedside. Is complaining of mild pain in the left lower extremity. He denies fever, chest pain, abdominal pain, diarrhea, constipation, burning micturition. Review of Systems Constitutional: Reports: see HPI. Objective Last 24 Hrs of Vital Signs/I&O Vital Signs Date Time Temp Pulse Resp B/P B/P Pulse O2 O2 Flow FiO2 Mean Ox Delivery Rate 01/29 2115 98.7 92 19 126/73 99 Room Air 01/29 1428 98.2 84 18 115/74 100 01/29 0746 81 120/80 01/29 0637 98.4 83 20 102/68 95 Room Air Intake & Output 01/29 1600 01/29 0800 01/29 0000 Intake Total 1300 800 500 Output Total 175 250 150 Balance 1125 550 350 Intake, IV 500 600 300 Intake, Oral 800 200 200 Number 1 Bowel Movements Output, Urine 175 250 150 Physical Exam General Appearance: Alert, Oriented X3, Cooperative, No Acute Distress Cardiovascular: Normal S1, Normal S2 Lungs: Clear to Auscultation, Normal Air Movement Abdomen: Normal Bowel Sounds, Soft, No Tenderness, No Hepatospenomegaly, No Masses Assessment/Plan Assessment: 53 year old man with past medical history of HTN, HLD, factor V leiden mutation on xarelto, and obesity presented to the ED for recurrent cellulitis after being discharged from here Jan 05. Problem list/plan: 1 osteomyelitis, cellulitis of left lower extremity: = ID recommendation appreciated = Patient is on clindamycin and ceftazidime = WBC trending down Mild CKD -Creatinine: 1.5 -Will continue him on gentle hydration 2. Hypercoaguable state 2/2 factor V leiden mutation -continue rivaroxaban 3.Depression/anxiety -continue home fluoxetine, lorazepam, gabapentin, trazadone 4. Hyperlipidemia -continue home atorvastatin 5.Hypertension -continue home metoprolol DVT prophylaxis: Lovenox; ALPS contraindicated due to LE cellulitis Regular diet Patient is full code Problem List: 1. Cellulitis 2. DVT prophylaxis 3. Full code status 4. Ulcer of right leg 5. chronic leg ulcers Pain Ratin Pain Location: Left lower extremity Pain Goal: Remain pain free Pain Plan: Pain management pathway Tomorrow's Labs & Rationales: BEP,CBC Fahad ESCOBAR,Nadeem 01/29/18 1234: Attending MD Review Statement Attending Statement Attending MD Statement: examined this patient, discuss w/resident/PA/AUTO ADJUDICATION SPECIALIST, agreed w/resident/PA/AUTO ADJUDICATION SPECIALIST, reviewed EMR data (avail), discussed with nursing, discussed with case mgmt, amended to note Attending Assessment/Plan: Patient seen and examined. Resting comfortably unless in any acute distress. No issues overnight. No new complaints this morning. He remains afebrile hemodynamically stable. On examination he has compression wrapping over the right lower extremity. He has intact dressing over the left lower extremity. Bilateral pedal edema. Leukocytosis has resolved. Vascular surgery consultation noted. Continue current antibiotic regimen. No bowel movements overnight. Stools sample for C. difficile was not sent since patient is no longer having diarrhea. If patient continues to improve over the weekend follow-up with the ID service regarding need for MRI imaging on Wednesday.
[2018-01-29 14:28] VITALS: BP 115/74
--- NOTE | 2018-01-29 14:53 | PN- Infect Dx ---
Subjective Subjective: This is a 53-year-old man with a history of bilateral lower extremity DVTs, chronic kidney disease and venous insufficiency, with chronic nonhealing ulcers of both lower extremities, status post multiple debridements and skin grafts and recurrent cellulitis, hospitalized 1 month prior to admission with a cellulitis of the left lower extremity, found to be afebrile with a marked leukocytosis, treated initially with Unasyn with no improvement and with a persistent leukocytosis and changed to Clindamycin and Ceftazidime, with improvement in his cellulitis and normalization of his white blood cell count, discharged on Clindamycin and Ciprofloxacin to complete a 10 day course of treatment, admitted on January 27 with several days of increasing erythema and pain in the medial aspect of his left thigh and over the anterior tibial aspect of his left leg, with chills but no documented fevers, and with intermittent diarrhea, with no nausea, vomiting or abdominal pain. The patient is currently afebrile with a normal white blood cell count. Review of Systems Comments: 12 point review of systems without any pertinent positives. Objective Last 24 Hrs of Vital Signs/I&O Vital Signs Date Time Temp Pulse Resp B/P B/P Pulse O2 O2 Flow FiO2 Mean Ox Delivery Rate 01/29 1428 98.2 84 18 115/74 100 01/29 0746 81 120/80 01/29 0637 98.4 83 20 102/68 95 Room Air 01/28 2133 98.2 81 18 100/60 98 Room Air Intake & Output 01/29 1600 01/29 0800 01/29 0000 Intake Total 1300 800 500 Output Total 175 250 150 Balance 1125 550 350 Intake, IV 500 600 300 Intake, Oral 800 200 200 Number 1 Bowel Movements Output, Urine 175 250 150 Physical Exam Other Physical Findings: Awake alert oriented 3 Pupils equal and reactive to light and accommodation Neck supple no JVD no lymphadenopathy Lungs are clear to auscultation bilaterally Heart regular rate and rhythm S1-S2 Abdomen soft nontender nondistended Left inner medial thigh with erythema and psoriatic-like rash Right leg with Unna boot in place Moving extremities Results Last 24 Hours of Lab Results: Laboratory Tests 01/29 01/28 0700 1750 Chemistry Sodium (137 - 145 mmol/L) 137 Potassium (3.5 - 5.1 mmol/L) 4.5 Chloride (98 - 107 mmol/L) 106 Carbon Dioxide (22 - 30 mmol/L) 21 L Anion Gap (5 - 16) 10 BUN (9 - 20 mg/dL) 24 H Creatinine (0.7 - 1.2 mg/dL) 1.7 H Estimated GFR (>60 ml/min) 42 L BUN/Creatinine Ratio (7 - 25 %) 14.1 Hematology CBC w Diff NO MAN DIFF REQ WBC (4.8 - 10.8 /CUMM) 8.9 RBC (4.70 - 6.10 /CUMM) 3.08 L Hgb (14.0 - 18.0 G/DL) 9.0 L Hct (42 - 52 %) 27.1 L MCV (80.0 - 94.0 FL) 88.0 MCH (27.0 - 31.0 PG) 29.3 MCHC (33.0 - 37.0 G/DL) 33.3 RDW (11.5 - 14.5 %) 16.4 H Plt Count (130 - 400 /CUMM) 233 MPV (7.4 - 10.4 FL) 7.6 Gran % (42.2 - 75.2 %) 67.7 Lymphocytes % (20.5 - 51.1 %) 20.0 L Monocytes % (1.7 - 9.3 %) 9.7 H Eosinophils % (0 - 5 %) 2.2 Basophils % (0.0 - 2.0 %) 0.4 Absolute Granulocytes (1.4 - 6.5 /CUMM) 6.1 Absolute Lymphocytes (1.2 - 3.4 /CUMM) 1.8 Absolute Monocytes (0.10 - 0.60 /CUMM) 0.9 H Absolute Eosinophils (0.0 - 0.7 /CUMM) 0.2 Absolute Basophils (0.0 - 0.2 /CUMM) 0 Urines Urine Color (YEL,AMB,STR) YEL Urine Clarity (CLEAR) CLEAR Urine pH (5.0 - 8.0) 6.0 Ur Specific [place] (1.001 - 1.035) >= 1.030 Urine Protein (NEG,<30 MG/DL) 100 H Urine Ketones (NEG) NEG Urine Nitrite (NEG) NEG Urine Bilirubin (NEG) NEG Urine Urobilinogen (0.1 - 1.0 EU/dl) 0.2 Ur Leukocyte Esterase (NEG) NEG Ur Microscopic SEDIMENT EXAMINED Urine RBC (0 - 5 /HPF) 50-75 H Urine WBC (0 - 2 /HPF) 3-5 H Ur Epithelial Cells (NONE,FEW) RARE Urine Bacteria (NEG/NONE) RARE H Urine Hemoglobin (NEG) MOD H Urine Glucose (N MG/DL) NEG Last 24 Hours of Rock Results: Microbiology Date/Time Procedure - Status Source Growth 01/28 1750 Urine Culture - RES URINE ROUT 01/28 1515 Clostridium difficile Toxin A & B - COLB STOOL 01/27 1637 Blood Culture - RES BLOOD 01/27 1455 Blood Culture - RES BLOOD Assessment/Plan ID Impression: This is a 53-year-old man with a clinical picture is consistent with a cellulitis of the left lower extremity. Given his improvement on his recent admission suspect this represents a new infection, likely related to the nonhealing anterior tibial ulcer on his left lower extremity and chronic venous insufficiency. He appears to have improved with no further fevers and with a decrease in his white blood cell count, his current antibiotic regimen can be continued. An underlying process involving his tibia, for example osteomyelitis , could be considered, though the CT scans on his recent admission only revealed stable, chronic periosteal reaction, unchanged from a previous scan 5 years earlier. He does report diarrhea and, given his recent antibiotics, C. difficile should be ruled out. Suggestion: 1. Elevation of the left leg 2. Vascular surgery to follow up as an outpatient 3. Consider MRI of the left lower extremity to rule out underlying osteomyelitis on wednesday 4. Urinalysis negative- follow urine culture 5. Stool for C. difficile if diarrhea 6. Ceftazidime to 2 g IV every 8 hours and Clindamycin to 900 mg IV every 8 hours
[2018-01-29 21:15] VITALS: BP 126/73
[2018-01-30 07:00] VITALS: BP 130/76
--- NOTE | 2018-01-30 08:12 | PN- Housestaff ---
Brando Tipton 01/30/18 0811: Subjective Follow-up For: Left lower extremity cellulitis Both lower extremity ulcer Bilateral DVT Subjective: Patient seen and examined at bedside. She was complaining of pain in the left lower extremity and new onset cough, palpitation, panic attack. He denies fever , chill, chest pain, abdominal pain, diarrhea, constipation, burning micturition. Review of Systems Constitutional: Reports: see HPI. Objective Last 24 Hrs of Vital Signs/I&O Vital Signs Date Time Temp Pulse Resp B/P B/P Pulse O2 O2 Flow FiO2 Mean Ox Delivery Rate 01/30 1456 97.9 84 20 133/75 94 Room Air 01/30 1329 Room Air 01/30 0800 Room Air 01/30 0748 86 130/76 01/30 0700 97.8 86 18 130/76 95 Room Air 01/29 2115 98.7 92 19 126/73 99 Room Air Intake & Output 01/30 1600 01/30 0800 01/30 0000 Intake Total 1100 840 Output Total 1500 600 800 Balance -400 240 -800 Intake, IV 800 600 Intake, Oral 300 240 Number 2 1 Bowel Movements Output, Urine 1500 600 800 Patient 305 lb Weight Weight Bed scale Measurement Method Physical Exam General Appearance: Alert, Oriented X3, Cooperative, Mild Distress Cardiovascular: Regular Rate, Normal S1, Normal S2, No Murmurs Lungs: Clear to Auscultation, Normal Air Movement Abdomen: Normal Bowel Sounds, Soft, No Tenderness, No Hepatospenomegaly, No Masses Extremities: B/L lower extremity edema Assessment/Plan Assessment: 53 year old man with past medical history of HTN, HLD, factor V leiden mutation on xarelto, and obesity presented to the ED for recurrent cellulitis after being discharged from here Jan 05. Problem list/plan: 1 osteomyelitis/cellulitis of left lower extremity: = ID recommendation appreciated = Patient is on clindamycin and ceftazidime = WBC trending down Mild CKD -Creatinine: 1.5 -Will continue him on gentle hydration 2. Hypercoaguable state 2/2 factor V leiden mutation -continue rivaroxaban 3.Depression/anxiety -continue home fluoxetine, lorazepam, gabapentin, trazadone 4. Hyperlipidemia -continue home atorvastatin 5.Hypertension -continue home metoprolol New onset DVT: Patient having history of latent factor V deficiency This morning patient was having severe cough, pain pain in the left lower extremity We did ultrasonography of bilateral lower extremity which was positive for bilateral DVT He was also complaining of shortness of breath Chest x-ray showing pulmonary edema We will follow-up on CTA, CT chest abdomen : Lovenox; ALPS contraindicated due to LE cellulitis Regular diet Patient is full code Problem List: 1. Cellulitis 2. Hereditary coagulation factor deficiency 3. b/l LE dvt on coumadin 4. Full code status Pain Ratin Pain Location: Left lower extremity Pain Goal: Remain pain free Pain Plan: Pain management pathway Tomorrow's Labs & Rationales: CBCs Fahad ESCOBAR,Evelienflaca 01/30/18 0942: Attending MD Review Statement Attending Statement Attending MD Statement: examined this patient, discuss w/resident/PA/CLOTH INSPECTOR, agreed w/resident/PA/CLOTH INSPECTOR, reviewed EMR data (avail), discussed with nursing, amended to note Attending Assessment/Plan: Patient seen and examined. No issues overnight reported by nursing staff. This morning however he developed cough productive of clear phlegm. Denies chest pain. Denies palpitations. Denies shortness of breath. Patient is attributing his coughing spell to anxiety. He reports that he is very anxious and states that he has taken Xanax in the past with anxiety. Denies any difficulty swallowing meals. Denies any coughing with meals. On examination he does appear anxious. He is not in respiratory distress. Not coughing at the time I evaluated him. He has adequate entry bilaterally with no added sounds. Heart sounds are regular. Abdomen is soft and nontender. Bilateral lower extremity edema. Compression wrapping on the right lower extremity. Intact dressing over the left lower extremity. Problems: 1. Left lower extremity cellulitis; with concern for osteomyelitis. 2. Sudden coughing spell. 3. History of deep vein thrombosis on anticoagulation with Xarelto 4. Anxiety disorder. Plan: -Currently afebrile. Leukocytosis had resolved on labs yesterday. Today's labs are currently pending. Continue current antibiotic regimen. -Continue leg elevation. Follow-up with the ID service tomorrow but obtain an MRI of the lower extremity to rule out osteomyelitis. -Obtain chest x-ray for further evaluation of his cough. -Continue his Prozac. Recommend a dose of Ativan 2 mg orally 1 now. -Patient was on anticoagulation with Xarelto. No need for DVT prophylaxis with heparin. Abdomen addendum -Bilateral lower extremity Dopplers show bilateral DVT thrombosis. According to patient he was diagnosed with DVT several years ago. She has imaging from a few years ago that showed no evidence of DVT. Appears that his lower extremity DVTs acute however exact onset is unknown. It is also possible that his respiratory symptoms are secondary to pulmonary embolism however at this time due to his renal insufficiency and the need for anticoagulation regardless we will not pursue CT scan for now. He is currently not tachycardic. He is hemodynamically stable and not requiring oxygen supplementation. He appears that he has failed anticoagulant therapy with Xarelto and we will be switching him now to IV heparin. He will likely benefit from long-term anticoagulant therapy with Coumadin rather than other oral anticoagulation agents.
--- NOTE | 2018-01-30 10:24 | RADIOLOGY REPORT ---
EXAMINATION: XR CHEST CLINICAL INFORMATION: Cough COMPARISON: Chest radiograph 02/15/2017 and selected images of the CT abdomen pelvis 12/02/2012. TECHNIQUE: 2 views of the chest were obtained. FINDINGS: The cardiac silhouette is mildly enlarged. There is marked enlargement of the azygos vein when compared to 02/15/2017. Additionally there are diffuse interstitial changes in the bilateral lungs with peribronchial thickening. No pleural effusions. No focal consolidation. IMPRESSION: 1. Enlarged cardiac silhouette with significant enlargement of the azygos vein, progressed since prior. This patient has known chronic venous disease with narrowing of the infrarenal IVC with prominent azygos and hemiazygos veins as seen on the CT study of 12/02/2012. 2. Diffuse interstitial changes in the lungs favor pulmonary edema, correlate clinically. The differential diagnosis could include an interstitial infection. Consider echocardiography for further evaluation. Follow-up CT of the chest, abdomen and pelvis with contrast may provide additional information.
[2018-01-30 10:26] LABS: ABSOLUTE BASOPHIL COUNT 0 /CUMM (0.0-0.2); ABSOLUTE EOSINOPHIL COUNT 0.2 /CUMM (0.0-0.7); ABSOLUTE GRANULOCYTE CT 6.9 /CUMM (1.4-6.5); ABSOLUTE LYMPH COUNT 1.5 /CUMM (1.2-3.4); ABSOLUTE MONOCYTE COUNT 0.8 /CUMM (0.10-0.60); BASOPHIL % 0.3 % (0.0-2.0); EOSINOPHIL % 2.5 % (0-5); GRANULOCYTE % 72.7 % (42.2-75.2); HEMATOCRIT 29.5 % (42-52); MEAN CORPUSCULAR HGB 29.5 PG (27.0-31.0); MEAN CORPUSCULAR HGB CONC 33.7 G/DL (33.0-37.0); MEAN CORPUSCULAR VOLUME 87.7 FL (80.0-94.0); MEAN PLATELET VOLUME 7.4 FL (7.4-10.4); PLATELET COUNT 272 /CUMM (130-400); RBC DISTRIBUTION WIDTH 15.7 % (11.5-14.5); RED BLOOD CELL CT 3.36 /CUMM (4.70-6.10); WHITE BLOOD CELL COUNT 9.5 /CUMM (4.8-10.8)
--- NOTE | 2018-01-30 11:34 | ULTRASOUND REPORT ---
EXAMINATION: US TRIPLEX OF LOWER EXTREMITIES, BILATERAL CLINICAL INFORMATION: Rule out DVT. COMPARISON: 2013 TECHNIQUE: Color-flow triplex imaging with spectral analysis and compression Doppler were performed on the lower extremities. FINDINGS: Study is positive. Right leg: There is nonocclusive thrombus in the RIGHT common femoral through mid femoral vein. Nonocclusive thrombus in the RIGHT popliteal. Left leg: There is also nonocclusive thrombus in the LEFT common femoral through mid femoral. Complete thrombosis occlusive of the distal femoral vein. IMPRESSION: Exam is POSITIVE for bilateral DVT. Route (Referring physician will be called, to be alerted of the above findings and recommendations.)
--- NOTE | 2018-01-30 13:32 | PN- Infect Dx ---
Subjective Subjective: This is a 53-year-old man with a left thigh cellulitis. The patient remains afebrile with a normal white blood cell count. Events overnight noted and new DVTs found in lower extremities. Continuing evaluation for pulmonary embolisms. Review of Systems Comments: 12 point review of systems positives noted in HPI. Objective Last 24 Hrs of Vital Signs/I&O Vital Signs Date Time Temp Pulse Resp B/P B/P Pulse O2 O2 Flow FiO2 Mean Ox Delivery Rate 01/30 0800 Room Air 01/30 0748 86 130/76 01/30 0700 97.8 86 18 130/76 95 Room Air 01/29 2115 98.7 92 19 126/73 99 Room Air 01/29 1428 98.2 84 18 115/74 100 Intake & Output 01/30 1600 01/30 0800 01/30 0000 Intake Total 840 Output Total 1000 600 800 Balance -1000 240 -800 Intake, IV 600 Intake, Oral 240 Number 1 Bowel Movements Output, Urine 1000 600 800 Patient 305 lb Weight Weight Bed scale Measurement Method Physical Exam Other Physical Findings: Awake alert oriented 3 Pupils equal and reactive to light and accommodation Neck supple no JVD no lymphadenopathy Lungs are clear to auscultation bilaterally Heart regular rate and rhythm S1-S2 Abdomen soft nontender nondistended Left inner medial thigh with erythema and psoriatic-like rash (resolving) Right leg with Unna boot in place Moving extremities Results Last 24 Hours of Lab Results: Laboratory Tests 01/30 01/30 0915 0909 Chemistry Sodium (137 - 145 mmol/L) 139 Potassium (3.5 - 5.1 mmol/L) 4.7 Chloride (98 - 107 mmol/L) 107 Carbon Dioxide (22 - 30 mmol/L) 21 L Anion Gap (5 - 16) 11 BUN (9 - 20 mg/dL) 21 H Creatinine (0.7 - 1.2 mg/dL) 1.5 H Estimated GFR (>60 ml/min) 49 L BUN/Creatinine Ratio (7 - 25 %) 14.0 Coagulation D-Dimer High Sensitivty Cancelled Hematology CBC w Diff NO MAN DIFF REQ WBC (4.8 - 10.8 /CUMM) 9.5 RBC (4.70 - 6.10 /CUMM) 3.36 L Hgb (14.0 - 18.0 G/DL) 9.9 L Hct (42 - 52 %) 29.5 L MCV (80.0 - 94.0 FL) 87.7 MCH (27.0 - 31.0 PG) 29.5 MCHC (33.0 - 37.0 G/DL) 33.7 RDW (11.5 - 14.5 %) 15.7 H Plt Count (130 - 400 /CUMM) 272 MPV (7.4 - 10.4 FL) 7.4 Gran % (42.2 - 75.2 %) 72.7 Lymphocytes % (20.5 - 51.1 %) 15.6 L Monocytes % (1.7 - 9.3 %) 8.9 Eosinophils % (0 - 5 %) 2.5 Basophils % (0.0 - 2.0 %) 0.3 Absolute Granulocytes (1.4 - 6.5 /CUMM) 6.9 H Absolute Lymphocytes (1.2 - 3.4 /CUMM) 1.5 Absolute Monocytes (0.10 - 0.60 /CUMM) 0.8 H Absolute Eosinophils (0.0 - 0.7 /CUMM) 0.2 Absolute Basophils (0.0 - 0.2 /CUMM) 0 Last 24 Hours of Rock Results: Microbiology Date/Time Procedure - Status Source Growth 01/28 1750 Urine Culture - COMP URINE ROUT 01/28 1515 Clostridium difficile Toxin A & B - CAN STOOL Cancelled: SPECIMEN NOT RECEIVED IN LABORATORY 01/27 1637 Blood Culture - RES BLOOD 01/27 1455 Blood Culture - RES BLOOD Assessment/Plan ID Impression: This is a 53-year-old man with a clinical picture is consistent with a cellulitis of the left lower extremity. He appears to have improved with no further fevers and with a decrease in his white blood cell count, his current antibiotic regimen can be continued. Suggestion: 1. Elevation of the left leg 2. Consider MRI of the left lower extremity to rule out underlying osteomyelitis on wednesday 3. Stool for C. difficile if diarrhea 4. Ceftazidime to 2 g IV every 8 hours and Clindamycin to 900 mg IV every 8 hours 5. DVT/PE work up
[2018-01-30 14:56] VITALS: BP 133/75
[2018-01-30 18:18] VITALS: BP 133/86
[2018-01-30 19:43] LABS: PTT 39 SEC (25-37)
[2018-01-31 02:00] VITALS: BP 123/88
[2018-01-31 05:34] LABS: PTT 63 SEC (25-37)
[2018-01-31 06:05] VITALS: BP 122/68
--- NOTE | 2018-01-31 07:35 | PN- Housestaff ---
Emily Baldwin 01/31/18 0734: Subjective Follow-up For: LLE cellulitis DVT Subjective: Patient was seen and examined at bedside. A continous obsevation monitor was placed for him for an episode of confusion and anxiety. He states pain in his leg is "killing him". He complains of a debilitating dry cough which was eased with Lasix yesterday. He states that IVC filter placement was discussed with him but it was never placed. The patient denies fever, chills, nausea, vomiting, diarrhea. Review of Systems Constitutional: Reports: see HPI. Objective Last 24 Hrs of Vital Signs/I&O Vital Signs Date Time Temp Pulse Resp B/P B/P Pulse O2 O2 Flow FiO2 Mean Ox Delivery Rate 01/31 1200 98.7 78 17 138/88 96 Room Air 01/31 0800 Room Air 01/31 0741 89 132/90 01/31 0605 98.4 86 20 122/68 95 Room Air 01/31 0200 98.7 84 20 123/88 97 Room Air 01/30 1818 98.3 80 18 133/86 97 Room Air 01/30 1600 Room Air 01/30 1456 97.9 84 20 133/75 94 Room Air Intake & Output 01/31 1600 01/31 0800 01/31 0000 Intake Total 1100 396 Output Total 1600 500 500 Balance -500 -104 -500 Intake, IV 600 396 Intake, Oral 500 Number 0 Bowel Movements Output, Urine 1600 500 500 Physical Exam General Appearance: Alert, Oriented X3, Cooperative, No Acute Distress Neck: Supple Cardiovascular: Regular Rate, Normal S1, Normal S2, No Murmurs Lungs: Clear to Auscultation Abdomen: Normal Bowel Sounds, Soft, No Tenderness Extremities: cellulitis on the LLE greatly improved. Redness and swelling improving consistently Assessment/Plan Assessment: 53 year old man with past medical history of HTN, HLD, factor V leiden mutation on xarelto, and obesity presented to the ED for recurrent cellulitis after being discharged from here Jan 05. The patient has had multiple DVTs in the past. A Venous Duplex was done which came back positive for DVT. Patient was started on Heparin drip. Vitals are stable and labs are unremarkable this morning. The patient is scheduled for an MRI of his LLE to rule out Osteomyelitis. Problem list/plan: 1. Cellulitis -Patient contiues to be on Clindamycin and Ceftazidime. -ID input appreciated. Will follow recommendations -Wound care consult placed. Will follow up recommendations -We will follow up on his blood cultures -WBC: 19.0-->12.7-->12.1 today -Pain management per pathway 2. Mild CKD -Creatinine: 1.4 -Will continue him on gentle hydration -We would trend BEP 2. Hypercoaguable state 2/2 factor V leiden mutation -Xarelto was stopped and patient was started on Heparin drip given the diagnosis of DVT 3.Depression/anxiety -continue home fluoxetine, lorazepam, gabapentin, trazadone 4. Hyperlipidemia -continue home atorvastatin 5.Hypertension -continue home metoprolol 6. DVT -Patient has history of chronic DVTs -He was started on Heparin drip -Hematology input appreciated. I would call Radiology to determine if his DVT is new in onset. That would be imperatve in deciding further choice of anti- coagulation for the patient. 7. Pulmonary edema -Chest X-raay of the patient was positive for Pulmonary edema -He has mild bilateral crackles -Patient also has severe debilitating cough which improved dramatically following dose of Lasix 20mg -We will give him a single dose of Lasix 20mg and schedule it PRN according to clinical condtion DVT prophylaxis: Lovenox; ALPS contraindicated due to LE cellulitis Regular diet Patient is full code Problem List: 1. Cellulitis of left leg 2. Renal insufficiency 3. CKD (chronic kidney disease) 4. Pulmonary edema Pain Ratin Pain Location: LLE Pain Goal: Pain 4 or less Pain Plan: pathway Tomorrow's Labs & Rationales: cbc and bep MarkBonnie 01/31/18 1125: Attending MD Review Statement Attending Statement Attending MD Statement: examined this patient, discuss w/resident/PA/JEWEL SAWYER, agreed w/resident/PA/JEWEL SAWYER, discussed with family, reviewed EMR data (avail), discussed with nursing, discussed with case mgmt, reviewed images, amended to note Attending Assessment/Plan: 53-year-old male past medical history of hypertension, hyperlipidemia, hypercoagulable state with factor V Leyden gene mutation on Xarelto and obesity. Previous hospitalisation with cellultiis and discharged on oral antibiotics now comes with worsening and extensive cellultiis extending upto medial thigh not involving scrotum with much improvement now with iv antibiotics. Weekend events noted. vitals stable. Chronic DVT on xarelto: USG with b/l lower extremity DVT. Switched a/c from xarelto to iv heparin. Hematology consult. Continue broad spectrum antibiotics as per ID recommendations. Vascular surgery eval noted. Cough r/o PE, obtain VQ scan as his creatinine is elevated. c/w a/c Wound care routine. GI/DVT prophylaxis full code.
[2018-01-31 08:27] LABS: ABSOLUTE BASOPHIL COUNT 0 /CUMM (0.0-0.2); ABSOLUTE EOSINOPHIL COUNT 0.3 /CUMM (0.0-0.7); ABSOLUTE GRANULOCYTE CT 8.7 /CUMM (1.4-6.5); ABSOLUTE LYMPH COUNT 2.1 /CUMM (1.2-3.4); BASOPHIL % 0.2 % (0.0-2.0); EOSINOPHIL % 2.6 % (0-5); GRANULOCYTE % 71.9 % (42.2-75.2); HEMATOCRIT 30.3 % (42-52); MEAN CORPUSCULAR HGB 29.1 PG (27.0-31.0); MEAN CORPUSCULAR HGB CONC 33.3 G/DL (33.0-37.0); MEAN CORPUSCULAR VOLUME 87.3 FL (80.0-94.0); MEAN PLATELET VOLUME 7.1 FL (7.4-10.4); PLATELET COUNT 293 /CUMM (130-400); RBC DISTRIBUTION WIDTH 15.3 % (11.5-14.5); RED BLOOD CELL CT 3.47 /CUMM (4.70-6.10); WHITE BLOOD CELL COUNT 12.1 /CUMM (4.8-10.8)
[2018-01-31 12:00] VITALS: BP 138/88
--- NOTE | 2018-01-31 13:14 | PN- Infect Dx ---
Subjective Subjective: Afebrile. He continues to complain of pain over the anterior tibial and lateral aspects of his left leg. Objective Last 24 Hrs of Vital Signs/I&O Vital Signs Date Time Temp Pulse Resp B/P B/P Pulse O2 O2 Flow FiO2 Mean Ox Delivery Rate 01/31 0800 Room Air 01/31 0741 89 132/90 01/31 0605 98.4 86 20 122/68 95 Room Air 01/31 0200 98.7 84 20 123/88 97 Room Air 01/30 1818 98.3 80 18 133/86 97 Room Air 01/30 1600 Room Air 01/30 1456 97.9 84 20 133/75 94 Room Air 01/30 1329 Room Air Intake & Output 01/31 1600 01/31 0800 01/31 0000 Intake Total 396 Output Total 1100 500 500 Balance -1100 -104 -500 Intake, IV 396 Output, Urine 1100 500 500 Physical Exam Other Physical Findings: He appears comfortable in no acute distress Extremities erythema over the left anterior thigh, with no induration or tenderness; mild tenderness over the anterior tibial and, particularly, the lateral aspect of his left calf over the superficial ulcer; swelling of the left lower extremity persist; Unna boot remains in place over the right lower extremity Results Last 24 Hours of Lab Results: Laboratory Tests 01/31 01/31 01/30 01/30 0750 0505 1843 1830 Chemistry Sodium (137 - 145 mmol/L) 139 Potassium (3.5 - 5.1 mmol/L) 4.8 Chloride (98 - 107 mmol/L) 108 H Carbon Dioxide (22 - 30 mmol/L) 22 Anion Gap (5 - 16) 9 BUN (9 - 20 mg/dL) 21 H Creatinine (0.7 - 1.2 mg/dL) 1.4 H Estimated GFR (>60 ml/min) 53 L BUN/Creatinine Ratio (7 - 25 %) 15.0 Coagulation APTT (25 - 37 SEC) 63 H 39 H Hematology CBC w Diff NO MAN DIFF REQ WBC (4.8 - 10.8 /CUMM) 12.1 H RBC (4.70 - 6.10 /CUMM) 3.47 L Hgb (14.0 - 18.0 G/DL) 10.1 L Hct (42 - 52 %) 30.3 L MCV (80.0 - 94.0 FL) 87.3 MCH (27.0 - 31.0 PG) 29.1 MCHC (33.0 - 37.0 G/DL) 33.3 RDW (11.5 - 14.5 %) 15.3 H Plt Count (130 - 400 /CUMM) 293 MPV (7.4 - 10.4 FL) 7.1 L Gran % (42.2 - 75.2 %) 71.9 Lymphocytes % (20.5 - 51.1 %) 17.3 L Monocytes % (1.7 - 9.3 %) 8.0 Eosinophils % (0 - 5 %) 2.6 Basophils % (0.0 - 2.0 %) 0.2 Absolute Granulocytes (1.4 - 6.5 /CUMM) 8.7 H Absolute Lymphocytes (1.2 - 3.4 /CUMM) 2.1 Absolute Monocytes (0.10 - 0.60 /CUMM) 1.0 H Absolute Eosinophils (0.0 - 0.7 /CUMM) 0.3 Absolute Basophils (0.0 - 0.2 /CUMM) 0 Last 24 Hours of Rock Results: Blood cultures x 2 January 27 negative Urine culture January 28 negative Recent Imaging Studies: Chest x-ray January 30 reveals diffuse interstitial changes in both lungs with peribronchial thickening Dopplers of both lower extremity January 30 reveals nonocclusive thrombi in both lower extremities Assessment/Plan ID Impression: Stable, with his temperatures remaining normal and his white blood cell count overall decreased, though increased from yesterday, on Clindamycin and Ceftazidime, Day 4 of treatment for a recurrent cellulitis of the left lower extremity, though he has overall decreased inflammation compared to last admission. The significance of the recent Doppler results is unclear given his history of prior DVTs, treatment with Xarelto and reported history of an IVC filter, though he now states that a filter was never placed. Suggestion: 1. Vascular surgery input regarding his recent Doppler studies 2. Consider MRI of the left lower extremity to rule out underlying osteomyelitis 3. Continue Clindamycin and Ceftazidime
[2018-01-31 14:46] VITALS: BP 116/78
--- NOTE | 2018-01-31 15:44 | Discharge Summary ---
Visit Information Visit Dates Admission Date: 01/27/18 Hospital Course Course Attending Physician: Bonnie Flores MD Primary Care Physician: Wilder Correa MD Hospital Course: ................. Allergies: Coded Allergies: No Known Allergies (12/27/17) Discharge Instructions Medications at Discharge Discharge Medications: Stop taking the following medications: Rivaroxaban (Xarelto) 15 MG TABLET ORAL DAILY Qty = 30 Gabapentin (Gabapentin) 300 MG CAPSULE ORAL TWICE DAILY Qty = 30 Continue taking these medications: Fluoxetine HCl (Prozac) 20 MG CAPSULE 1 Capsule ORAL DAILY Qty = 30 Comments: LAST GIVEN 02/02/18 @ 0830 Trazodone HCl (Trazodone HCl) 50 MG TABLET 1 Tablet ORAL Every night Qty = 30 Comments: NOT GIVEN IN HOSPITAL Atorvastatin Calcium (Atorvastatin Calcium) 10 MG TABLET 1 Tablet ORAL DAILY Qty = 30 Comments: LAST GIVEN 01/02/18 @ 0830 Gabapentin (Gabapentin) 300 MG CAPSULE 900 Milligram ORAL EVERY 8 HOURS NEEDED as needed for ANXIETY Qty = 90 Comments: LAST GIVEN 02/02/18 @ 0830 Metoprolol Succinate (Metoprolol Succinate) 25 MG TAB 1 Tablet ORAL DAILY Qty = 30 Comments: Last Taken:01/05/18 Time:08:45AM Lorazepam (Ativan) 0.5 MG TABLET 0.5 Tablet ORAL THREE TIMES DAILY Qty = 15 Instructions: Do not drive or operate heavy machinery while on this medication. Comments: LAST GIVEN 02/02/18 @ 0830 Start taking the following new medications: Dabigatran Etexilate Mesylate (Pradaxa 150 MG) 150 MG CAPSULE 150 Milligram ORAL TWICE DAILY Qty = 60 No Refills Comments: LAST GIVEN 02/02/18 @ 0830 Acetaminophen (Acetaminophen) 500 MG TABLET 500 Milligram ORAL EVERY SIX HOURS NEEDED as needed for PAIN SCALE 1-3 ( MILD) Qty = 30 No Refills Attending MD Review Statement Documenting Attending: Bonnie Flores MD Other Findings: Patient denies any new complaints. He is calm and coperative today. He received/ completed iv antibiotics as per ID recommendations. He is tolerating his pradaxa. Patient worked with PT and recommendations are to go home with home PT. His wound care routine. CONSULTANTS Vascular surgery Infectious disease Hematology Wound consult FOLLOW UP Heamtology in 2 weeks of discharge PCP in 1 week of discharge Wound center 1 week of discharge.
--- NOTE | 2018-01-31 16:01 | PN- Vascular Surgery ---
Subjective Subjective: asked to comment on US findings of DVT Objective Vital Signs and I&Os Vital Signs Date Time Temp Pulse Resp B/P B/P Pulse O2 O2 Flow FiO2 Mean Ox Delivery Rate 01/31 1446 98.6 86 20 116/78 96 Room Air 01/31 1200 98.7 78 17 138/88 96 Room Air 01/31 0800 Room Air 01/31 0741 89 132/90 01/31 0605 98.4 86 20 122/68 95 Room Air 01/31 0200 98.7 84 20 123/88 97 Room Air 01/30 1818 98.3 80 18 133/86 97 Room Air 01/30 1600 Room Air Intake & Output 01/31 1600 01/31 0800 01/31 0000 01/30 1600 01/31 0800 01/30 0000 Intake Total 4139 197 3727 840 Output Total 1600 601 218 7268 600 800 Balance -500 -104 -500 -400 240 -800 Intake, IV 600 396 800 600 Intake, Oral 500 300 240 Number 0 2 1 Bowel Movements Output, Urine 1600 406 359 6646 600 800 Patient 305 lb Weight Weight Bed scale Measurement Method Assessment/Plan Assessment/Plan Occlusive thrombus seen in LLE- US likely represents combination of acute and chronic DVT. This may represent xarelto failure Hematology involved to recommend alternative AC If oral AC deemed not acceptable I would recommend IVC filter (if pt does not already have one) Rec obtaining abd xray to determine if filter present Please contact if no filter is in place and filter is desired Problem List: 1. Deep venous thrombosis of lower extremity 2. Cellulitis of leg 3. Hereditary coagulation factor deficiency Attending MD Review Statement Attending Statement Attending MD Statement: reviewed EMR data (avail)
--- NOTE | 2018-01-31 18:06 | NUCLEAR MEDICINE REPORT ---
EXAMINATION: PULMONARY VENTILATION PERFUSION STUDY CLINICAL INFORMATION: Evaluate for PE. Bilateral DVT. COMPARISON: Chest x-ray most recent prior dated 01/30/2018 TECHNIQUE: Serial gamma scintillation camera images were obtained over the posterior chest during the single breath, equilibrium rebreathing and washout of 10.3 mCi Xe 133 gas. The patient then received 3.3 mCi Tc-99m MAA intravenously and a 6-view perfusion study was performed. FINDINGS: Ventilation images: On the single breath and equilibrium images there is fairly homogeneous distribution of gas bilaterally. During the washout phase there is no abnormal retention. Perfusion images: No segmental perfusion defects are present. There is only minimally inhomogeneous distribution of activity bilaterally. There are no focal anatomic appearing perfusion defects present. IMPRESSION: Very low probability for acute pulmonary embolism.
[2018-01-31 18:12] VITALS: BP 108/83
[2018-01-31 18:34] LABS: PTT 30 SEC (25-37)
[2018-01-31 21:33] VITALS: BP 98/70
--- NOTE | 2018-01-31 22:08 | MRI REPORT ---
Examination: MRI-LT TIBIA-FIBULA W/O CATHIE Indication: Osteomyelitis Comparison: Prior studies including the 12/31/2017 CT scan and the 01/30/2018 ultrasound Technique: Multiple routine MRI sequences through the left lower extremity from the proximal tibia/fibula to the ankle were obtained. Contrast was not utilized per request. Findings: There is diffuse soft tissue edema seen in the subcutaneous tissues more so along the medial distal calf. There is associated skin thickening there is mild edema within the posterior calf musculature. I do not appreciate any discrete drainable collection. There is a suggestion of a possible subcentimeter ganglion cyst anterior to the tibiotalar joint space but this does not appear to represent a discrete abscess. There is otherwise normal bone marrow signal. I do not appreciate any focal bony contusion or fracture. No significant bone marrow edema to suggest underlying osteomyelitis. No significant ankle joint effusion. Examination is not tailored to evaluate the tendons about the ankle but no gross tendon abnormality appreciated. Patient's known DVT is not well delineated on this noncontrast study. Impression: Diffuse soft tissue edema about the calf more so along the medial calf. The amount of edema appears to have likely increased from the 12/31/2017 study although it is a different modality which makes direct comparison difficult. Mild edema seen in the posterior calf muscles. No discrete drainable abscess collection. No significant bone marrow signal abnormality to suggest underlying osteomyelitis.
[2018-02-01 03:00] LABS: PTT 113 SEC (25-37)
[2018-02-01 04:00] VITALS: BP 113/82
--- NOTE | 2018-02-01 06:55 | PN- Housestaff ---
Opal Tipton 02/01/18 0655: Subjective Follow-up For: LLE cellulitis DVT Complaints: no complaints Subjective: Patient seen and examined in bed lying in no acute distress. Complains of 4/10 pain in his left lower limb. No acute events overnight Review of Systems Constitutional: Reports: see HPI. Objective Last 24 Hrs of Vital Signs/I&O Vital Signs Date Time Temp Pulse Resp B/P B/P Pulse O2 O2 Flow FiO2 Mean Ox Delivery Rate 02/01 1300 98.0 86 18 109/66 97 Room Air 02/01 0900 98.2 81 18 112/70 99 Room Air 02/01 0800 Room Air 02/01 0400 98.1 78 18 113/82 95 01/31 2133 97.5 86 20 98/70 97 Room Air 01/31 1812 97.6 74 18 108/83 97 Room Air Intake & Output 02/01 1600 02/01 0800 02/01 0000 Intake Total 1000 333.7 280 Output Total 7448 459 3724 Balance -801 -66.3 -1220 Intake, IV 500 133.7 80 Intake, Oral 500 200 200 Number 1 Bowel Movements Output, Stool 1 Output, Urine 3195 717 8671 Patient 308 lb Weight Weight Bed scale Measurement Method Physical Exam General Appearance: Alert, Oriented X3, Cooperative, No Acute Distress Skin: No Rashes, No Breakdown, No Significant Lesion Skin Temp/Moisture Exam: Cool/Dry Sepsis Skin Exam (color): Normal for Ethnicity HEENT: Atraumatic, Mucous Membr. moist/pink Neck: Supple, No JVD, No LAD Cardiovascular: Regular Rate, Normal S1, Normal S2, No Murmurs Lungs: Clear to Auscultation, Normal Air Movement Abdomen: Normal Bowel Sounds, Soft, No Tenderness, No Hepatospenomegaly, No Masses Neurological: Normal Speech, Normal Tone, Sensation Intact Extremities: No Clubbing, No Cyanosis, No Edema, Normal Pulses Vascular: Normal Pulses Assessment/Plan Assessment: 53 year old man with past medical history of HTN, HLD, factor V leiden mutation on xarelto, and obesity presented to the ED for recurrent cellulitis after being discharged from here Jan 05. The patient has had multiple DVTs in the past. Problems: 1.Left leg cellulitis 2.hypercoagulable state secondary to factor V bleeding mutation 3.bilateral lower extremity DVTacute on chronic 4.pulmonary edema 5.CKD stage III Assessment and plan: Problem List: 1. Deep venous thrombosis of lower extremity 2. Cellulitis of leg 3. Pulmonary edema 4. Hereditary coagulation factor deficiency Pain Ratin Pain Location: Lower limbs bilaterally Pain Goal: Remain pain free Pain Plan: Follow pain pathway Tomorrow's Labs & Rationales: CBC, BEP Bonnie Flores 02/01/18 1117: Attending MD Review Statement Attending Statement Attending MD Statement: examined this patient, discuss w/resident/PA/THERAPEUTIC CONSULTANT, agreed w/resident/PA/THERAPEUTIC CONSULTANT, discussed with family, reviewed EMR data (avail), discussed with nursing, discussed with case mgmt, reviewed images, amended to note Attending Assessment/Plan: 53-year-old male past medical history of hypertension, hyperlipidemia, hypercoagulable state with factor V Leyden gene mutation on Xarelto and obesity. Previous hospitalisation with cellultiis and discharged on oral antibiotics now comes with worsening and extensive cellultiis extending upto medial thigh not involving scrotum with much improvement now with iv antibiotics. Acute on Chronic DVT on xarelto: USG with b/l lower extremity DVT. Hematology consulted and recommend pradaxa for now. Renal dosing as per pharmacy. Continue broad spectrum antibiotics as per ID recommendations. Vascular surgery eval noted. Patient does not want IVC filter. MRI without evidence of OM. Wound care routine. GI/DVT prophylaxis full code. PT consult: [facility] and wants to go home. PT consult: [facility] and wants to go home.
--- NOTE | 2018-02-01 08:09 | Cons- Hematology ---
General Information and HPI Consulting Request Date of Consult: 02/01/18 Requested By: Bonnie Flores MD Reason for Consult: chronic DVT Source of Information: patient, old records Exam Limitations: poor historian History of Present Illness: Mr. Maddox is a 53-year-old male with chronic lower extremity venous stasis with non-healing ulcers, recurrent cellulitis, multiple debridements, skin grafts, and factor V Leiden mutation with DVT in bilateral lower extremity and IVC on rivaroxaban who presented to [facility] with cellulitis of the LLE. He was recently discharged from [facility] on 01/05 with ciprofloxacin and clindamycin. He had worsening pain and redness of the LLE. On presentation to the ED, his WBC was elevated at 19.2. He had a fever of 100.3. Creatinine was 1.6. US of the lower extremity demonstrated DVT. MRI of the lower extremity was negative for osteomyelitis. VQ scan was negative for PE. He continues to have leg pain. He states he was previous taking his rivaroxaban but unclear if he missed any dosing. Of note, he was placed on warfarin in the past but was very erratic in his INR level. He was supratherapeutic multiple time up to 13. Allergies/Medications Allergies: Coded Allergies: No Known Allergies (12/27/17) Home Med List: Atorvastatin Calcium 10 MG TABLET 1 TAB PO DAILY HEART HEALTH (Reported) Fluoxetine HCl (Prozac) 20 MG CAPSULE 1 CAP PO DAILY MENTAL HEALTH (Reported) Gabapentin 300 MG CAPSULE 1 CAP PO BID ANXIETY/NEUROPATHY (Reported) Gabapentin 300 MG CAPSULE 900 MG PO Q8P PRN ANXIETY Lorazepam (Ativan) 0.5 MG TABLET 0.5 TAB PO TID Anxiety Do not drive or operate heavy machinery while on this medication. Metoprolol Succinate 25 MG TAB 1 TAB PO DAILY HEART (Reported) Rivaroxaban (Xarelto) 15 MG TABLET 1 TAB PO DAILY DVT (Reported) Trazodone HCl 50 MG TABLET 1 TAB PO QPM SLEEP (Reported) Current Medications: Current Medications Sig/Malinda Start time Last Medication Dose Route Stop Time Status Admin Acetaminophen 500 MG Q6P PRN 01/27 1900 AC 01/27 PO 1916 Atorvastatin Calcium 10 MG DAILY 01/28 0900 AC 01/31 PO 0741 Benzocaine/Menthol 1 AAKASH Q2P PRN 01/30 1300 AC PO Benzonatate 100 MG TID 01/30 1400 AC 01/31 PO 2139 Ceftazidime 2,000 MG IQ8 01/28 1600 AC 01/31 IV 2347 Clindamycin 900 MG Q8H 01/31 0300 AC 02/01 Dextrose/Water 50 ML IV 0210 Fluoxetine HCl 20 MG DAILY 01/28 0900 AC 01/31 PO 0741 Furosemide 20 MG ONCE ONE 01/31 0945 DC 01/31 IV 01/31 0946 1048 Gabapentin 300 MG BID 01/27 2100 AC 01/28 PO 2144 Guaifenesin 600 MG Q12 01/30 0900 AC 01/31 PO 2139 Guaifenesin/Codeine 10 ML Q6P PRN 01/27 1730 AC 01/30 Phosphate PO 08 Heparin Sodium 10,300 UNIT ONCE ONE 01/31 2030 DC 01/31 (Porcine) IV 01/31 Heparin Sodium 0 .STK-MED ONE 01/31 2023 DC (Porcine) .ROUTE Heparin Sodium 25,000 UNIT Q24H 01/30 1145 AC 01/31 (Porcine) IV 2024 Sodium Chloride 500 ML Metoprolol Succinate 25 MG DAILY 01/28 0900 AC 01/31 PO 0741 Morphine Sulfate 2 MG ONCE ONE 01/31 2100 DC 01/31 IV 01/31 Morphine Sulfate 4 MG ONCE ONE 01/31 1400 DC 01/31 IV 01/31 1401 1410 Oxycodone HCl 5 MG Q6P PRN 01/27 1900 AC PO Oxycodone HCl 10 MG Q6P PRN 01/27 1900 AC 01/31 PO 1803 Trazodone HCl 50 MG QPM 01/27 2100 AC 01/31 PO 2139 Review of Systems Review of Systems Constitutional: Reports: weakness. Denies: chills, fever. Cardiovascular: Denies: chest pain. Respiratory: Denies: short of breath. GI: Denies: abdominal pain, melena. Genitourinary: Denies: dysuria. Musculoskeletal: Reports: see HPI, joint pain, joint swelling, muscle pain. Skin: Reports: erythema. Neurological/Psychological: Denies: confusion. Hematologic/Endocrine: Denies: bruising, bleeding. Immunologic/Allergic: Denies: lymphadenopathy. All Other Systems: Reviewed and Negative Past History Travel History Traveled to [place] past 21 day No Medical History Blood Transfusion Hx: No Neurological: NONE EENT: NONE Cardiovascular: chronic venous insuff Respiratory: NONE Gastrointestinal: NONE Hepatic: NONE Renal: chronic kidney disease Musculoskeletal: disk herniation Psychiatric: depression, Alcohol use disorder Endocrine: obesity, borderline dm Blood Disorders: DVT Cancer(s): NONE PROJECT CONTROLS SPECIALIST/Reproductive: NONE Other Medical Hx: Recurrent cellulitis Surgical History Surgical History: MULTIPLE DEBRIDEMENTS. CHRONIC NON-HEALING LEG ULCERS. SKIN GRAFTS. Family History Relations & Conditions If Any: FATHER (Hypertension and heart disease). MOTHER (Hypertension). Psychosocial History Services at Home: Nursing Smoking Status: Former Smoker Functional Ability ADLs Independent: dressing, eating, toileting, bathing. Ambulation: electric wheelchair Exam & Diagnostic Data Vital Signs and I&O Vital Signs Date Time Temp Pulse Resp B/P B/P Pulse O2 O2 Flow FiO2 Mean Ox Delivery Rate 02/01 0400 98.1 78 18 113/82 95 01/31 2133 97.5 86 20 98/70 97 Room Air 01/31 1812 97.6 74 18 108/83 97 Room Air 01/31 1446 98.6 86 20 116/78 96 Room Air 01/31 1200 98.7 78 17 138/88 96 Room Air 01/31 0800 Room Air Intake & Output 02/01 0800 02/01 0000 01/31 1600 Intake Total 333.7 280 1100 Output Total 400 1500 1600 Balance -66.3 -1220 -500 Intake, IV 133.7 80 600 Intake, Oral 200 200 500 Number 0 Bowel Movements Output, Urine 400 1500 1600 Patient 139.763 kg Weight Weight Bed scale Measurement Method Physical Exam General Appearance: no apparent distress, alert, awake, comfortable, obese Head: atraumatic, normal appearance Eyes: Bilateral: EOMI. Ears, Nose, Throat: normal pharynx Neck: supple Respiratory: normal breath sounds, chest non-tender, no respiratory distress, quiet respiration Cardiovascular: regular rate/rhythm Gastrointestinal: normal bowel sounds, soft, distention Extremities: edema in lower extremity, dressing in place. Neurologic/Psych: awake, alert, oriented x 3 Skin: normal color Lymphatic: no anterior cervical vanessa Last 48 Hours of Lab Results: Laboratory Tests 02/01 01/31 01/31 0210 1804 1650 Coagulation APTT (25 - 37 SEC) 113 *H 30 Cancelled 01/31 01/31 01/31 01/30 0750 0600 0505 1843 Chemistry Hemoglobin A1c (4.2 - 5.8 %) 5.9 H Coagulation APTT (25 - 37 SEC) 63 H 39 H Hematology CBC w Diff NO MAN DIFF REQ WBC (4.8 - 10.8 /CUMM) 12.1 H RBC (4.70 - 6.10 /CUMM) 3.47 L Hgb (14.0 - 18.0 G/DL) 10.1 L Hct (42 - 52 %) 30.3 L MCV (80.0 - 94.0 FL) 87.3 MCH (27.0 - 31.0 PG) 29.1 MCHC (33.0 - 37.0 G/DL) 33.3 RDW (11.5 - 14.5 %) 15.3 H Plt Count (130 - 400 /CUMM) 293 MPV (7.4 - 10.4 FL) 7.1 L Gran % (42.2 - 75.2 %) 71.9 Lymphocytes % (20.5 - 51.1 %) 17.3 L Monocytes % (1.7 - 9.3 %) 8.0 Eosinophils % (0 - 5 %) 2.6 Basophils % (0.0 - 2.0 %) 0.2 Absolute Granulocytes (1.4 - 6.5 /CUMM) 8.7 H Absolute Lymphocytes (1.2 - 3.4 /CUMM) 2.1 Absolute Monocytes (0.10 - 0.60 /CUMM) 1.0 H Absolute Eosinophils (0.0 - 0.7 /CUMM) 0.3 Absolute Basophils (0.0 - 0.2 /CUMM) 0 01/30 01/30 01/30 1830 0915 0965 Chemistry Sodium (137 - 145 mmol/L) 139 139 Potassium (3.5 - 5.1 mmol/L) 4.8 4.7 Chloride (98 - 107 mmol/L) 108 H 107 Carbon Dioxide (22 - 30 mmol/L) 22 21 L Anion Gap (5 - 16) 9 11 BUN (9 - 20 mg/dL) 21 H 21 H Creatinine (0.7 - 1.2 mg/dL) 1.4 H 1.5 H Estimated GFR (>60 ml/min) 53 L 49 L BUN/Creatinine Ratio (7 - 25 %) 15.0 14.0 Coagulation D-Dimer High Sensitivty Cancelled Hematology CBC w Diff NO MAN DIFF REQ WBC (4.8 - 10.8 /CUMM) 9.5 RBC (4.70 - 6.10 /CUMM) 3.36 L Hgb (14.0 - 18.0 G/DL) 9.9 L Hct (42 - 52 %) 29.5 L MCV (80.0 - 94.0 FL) 87.7 MCH (27.0 - 31.0 PG) 29.5 MCHC (33.0 - 37.0 G/DL) 33.7 RDW (11.5 - 14.5 %) 15.7 H Plt Count (130 - 400 /CUMM) 272 MPV (7.4 - 10.4 FL) 7.4 Gran % (42.2 - 75.2 %) 72.7 Lymphocytes % (20.5 - 51.1 %) 15.6 L Monocytes % (1.7 - 9.3 %) 8.9 Eosinophils % (0 - 5 %) 2.5 Basophils % (0.0 - 2.0 %) 0.3 Absolute Granulocytes (1.4 - 6.5 /CUMM) 6.9 H Absolute Lymphocytes (1.2 - 3.4 /CUMM) 1.5 Absolute Monocytes (0.10 - 0.60 /CUMM) 0.8 H Absolute Eosinophils (0.0 - 0.7 /CUMM) 0.2 Absolute Basophils (0.0 - 0.2 /CUMM) 0 Imaging/Other Studies: US lower extremity 01/30/2018: Study is positive. Right leg: There is nonocclusive thrombus in the RIGHT common femoral through mid femoral vein. Nonocclusive thrombus in the RIGHT popliteal. Left leg: There is also nonocclusive thrombus in the LEFT common femoral through mid femoral. Complete thrombosis occlusive of the distal femoral vein. IMPRESSION: Exam is POSITIVE for bilateral DVT. MRI LLE 01/31/2018: Diffuse soft tissue edema about the calf more so along the medial calf. The amount of edema appears to have likely increased from the 12/31/2017 study although it is a different modality which makes direct comparison difficult. Mild edema seen in the posterior calf muscles. No discrete drainable abscess collection. No significant bone marrow signal abnormality to suggest underlying osteomyelitis. VQ Scan 01/31/2018: Very low probability for acute pulmonary embolism. Assessment/Plan Assessment: Mr. Maddox is a 53-year-old male with chronic lower extremity venous stasis with non-healing ulcers, recurrent cellulitis, multiple debridements, skin grafts, and factor V Leiden mutation with DVT in bilateral lower extremity and IVC on rivaroxaban who presented to [facility] with cellulitis of the LLE. On presentation to the ED, his WBC was elevated at 19.2. He had a fever of 100.3. Creatinine was 1.6. US of the lower extremity demonstrated DVT. MRI of the lower extremity was negative for osteomyelitis. VQ scan was negative for PE. He is currently being treated with antibiotic and ID is following. DVT seems chronic as patient had DVT in the LLE in 2017 at [facility]. This needs to be reviewed by radiology to determine if this DVT is acute versus chronic. It is unlikely that these findings are acute. He is unclear if he has been completely compliant with rivaroxaban. He was a poor candidate for warfarin previous given erratic levels and concerns for compliance. He may be switched to any anticoagulant if needed. His renal function will be the main issues. Recommendations: Bilateral lower extremity DVT: -follow up with radiology on chronicity of DVT, obtain [facility] imaging for radiology to review -if acute, can switch to anticoagulant to another agent such as warfarin ( erratic INR previously) or dabigatran (monitor renal function) -encourage compliance with medicaton Cellulitis: -management as per primary Problem List: 1. Hereditary coagulation factor deficiency 2. CKD (chronic kidney disease) 3. Deep venous thrombosis of lower extremity Other Findings/Comments: Please call [phone] with any questions or concerns. Consult Acknowledgment - Thank you for your consult request.
[2018-02-01 08:36] LABS: PTT 56 SEC (25-37)
[2018-02-01 09:00] VITALS: BP 112/70
[2018-02-01 09:01] LABS: ABSOLUTE BASOPHIL COUNT 0 /CUMM (0.0-0.2); ABSOLUTE EOSINOPHIL COUNT 0.5 /CUMM (0.0-0.7); ABSOLUTE GRANULOCYTE CT 11.1 /CUMM (1.4-6.5); ABSOLUTE LYMPH COUNT 2.4 /CUMM (1.2-3.4); ABSOLUTE MONOCYTE COUNT 1.2 /CUMM (0.10-0.60); BASOPHIL % 0.1 % (0.0-2.0); EOSINOPHIL % 3.2 % (0-5); GRANULOCYTE % 73.3 % (42.2-75.2); HEMATOCRIT 31.8 % (42-52); MEAN CORPUSCULAR HGB 29.2 PG (27.0-31.0); MEAN CORPUSCULAR HGB CONC 33.1 G/DL (33.0-37.0); MEAN CORPUSCULAR VOLUME 88.2 FL (80.0-94.0); MEAN PLATELET VOLUME 7.2 FL (7.4-10.4); PLATELET COUNT 317 /CUMM (130-400); RBC DISTRIBUTION WIDTH 15.9 % (11.5-14.5); WHITE BLOOD CELL COUNT 15.2 /CUMM (4.8-10.8)
--- NOTE | 2018-02-01 09:02 | RADIOLOGY REPORT ---
EXAMINATION: XR ABDOMEN CLINICAL INDICATION: Acute deep vein thrombosis. Evaluate for IVC filter. COMPARISON: CT abdomen and pelvis, 12/02/2012 TECHNIQUE: AP view of the abdomen. FINDINGS: Large body habitus. Cholelithiasis. Bowel gas pattern is normal. Chronic calcification of bilateral common and external iliac veins -- likely sequela of chronic venous thrombosis. No evidence of IVC filter. Multilevel degenerative arthropathy of the visualized lower thoracic and lumbar spine. IMPRESSION: No evidence of IVC filter.
[2018-02-01 13:00] VITALS: BP 109/66
--- NOTE | 2018-02-01 17:46 | PN- Infect Dx ---
Subjective Subjective: Afebrile. He feels improved with decreased pain in the left lower extremity. Objective Last 24 Hrs of Vital Signs/I&O Vital Signs Date Time Temp Pulse Resp B/P B/P Pulse O2 O2 Flow FiO2 Mean Ox Delivery Rate 02/01 1300 98.0 86 18 109/66 97 Room Air 02/01 0900 98.2 81 18 112/70 99 Room Air 02/01 0800 Room Air 02/01 0400 98.1 78 18 113/82 95 01/31 2133 97.5 86 20 98/70 97 Room Air 01/31 1812 97.6 74 18 108/83 97 Room Air Intake & Output 02/01 1600 02/01 0800 02/01 0000 Intake Total 1000 333.7 280 Output Total 0871 028 7591 Balance -801 -66.3 -1220 Intake, IV 500 133.7 80 Intake, Oral 500 200 200 Number 1 Bowel Movements Output, Stool 1 Output, Urine 7024 760 2419 Patient 308 lb Weight Weight Bed scale Measurement Method Physical Exam Other Physical Findings: He appears comfortable in no acute distress Extremities mild erythema over the anterior aspect of both thighs, with no induration or tenderness; left leg with decreased erythema and tenderness over the anterior tibial aspect Results Last 24 Hours of Lab Results: Laboratory Tests 02/01 02/01 01/31 0802 0210 1804 Chemistry Sodium (137 - 145 mmol/L) 137 Potassium (3.5 - 5.1 mmol/L) 4.6 Chloride (98 - 107 mmol/L) 103 Carbon Dioxide (22 - 30 mmol/L) 24 Anion Gap (5 - 16) 10 BUN (9 - 20 mg/dL) 25 H Creatinine (0.7 - 1.2 mg/dL) 1.6 H Estimated GFR (>60 ml/min) 45 L BUN/Creatinine Ratio (7 - 25 %) 15.6 Coagulation APTT (25 - 37 SEC) 56 H 113 *H 30 Hematology CBC w Diff MAN DIFF ORDERED WBC (4.8 - 10.8 /CUMM) 15.2 H RBC (4.70 - 6.10 /CUMM) 3.60 L Hgb (14.0 - 18.0 G/DL) 10.5 L Hct (42 - 52 %) 31.8 L MCV (80.0 - 94.0 FL) 88.2 MCH (27.0 - 31.0 PG) 29.2 MCHC (33.0 - 37.0 G/DL) 33.1 RDW (11.5 - 14.5 %) 15.9 H Plt Count (130 - 400 /CUMM) 317 MPV (7.4 - 10.4 FL) 7.2 L Gran % (42.2 - 75.2 %) 73.3 Lymphocytes % (20.5 - 51.1 %) 15.6 L Monocytes % (1.7 - 9.3 %) 7.8 Eosinophils % (0 - 5 %) 3.2 Basophils % (0.0 - 2.0 %) 0.1 Absolute Granulocytes (1.4 - 6.5 /CUMM) 11.1 H Segmented Neutrophils (42.2 - 75.2 %) 73 Band Neutrophils (0.0 - 5.0 %) 3 Absolute Lymphocytes (1.2 - 3.4 /CUMM) 2.4 Lymphocytes (20.5 - 51.1 %) 13 L Monocytes (1.7 - 9.3 %) 4 Absolute Monocytes (0.10 - 0.60 /CUMM) 1.2 H Eosinophils (0 - 5.0 %) 4 Absolute Eosinophils (0.0 - 0.7 /CUMM) 0.5 Absolute Basophils (0.0 - 0.2 /CUMM) 0 Metamyelocytes (0.0 - 1.0 %) 2 H Myelocytes (0 - 0 %) 1 H Platelet Estimate (ADEQUATE) VERIFIED BY SMEAR Anisocytosis 1+ Last 24 Hours of Rock Results: No recent cultures Recent Imaging Studies: MRI of the left tibia/fibula reveals diffuse soft tissue edema about the calf, mostly medial, with no evidence of any abscess or underlying osteomyelitis Lung scan January 31 very low probability for acute pulmonary embolism Abdominal x-ray February 01 no evidence of any IVC filter Assessment/Plan ID Impression: Stable, with his temperatures remaining normal and with subjective improvement in his left lower extremity pain, though he continues to have erythema over the anterior aspect of his left thigh and now on the right thigh as well, and his white blood cell count today has increased, of unclear etiology. He remains on Clindamycin and Ceftazidime, Day 5 of treatment for a recurrent cellulitis of the left lower extremity. His DVT is felt to be a combination of an acute and chronic process, and his anticoagulation has been changed. Suggestion: 1. Further management with regard to his DVT per Medicine, Hematology and Vascular surgery 2. Repeat CBC in the a.m. 3. Continue Clindamycin and Ceftazidime pending above
[2018-02-01 21:49] VITALS: BP 119/67
--- NOTE | 2018-02-01 22:53 | ECHOCARDIOGRAM REPORT ---
DINO VIEYRA Age: 53 : 1965 Gender: M Exam Date: 02/01/2018 11:34 Exam Location: [place] Ht (in): 68 Wt (lb): 307 BSA: 2.66 BP: 122 / 68 Ordering Physician: Yohana Chavez MD Referring Physician: Yohana Chavez MD Technologist: [facility] Room Number: 218-1 Indications: PERIPHERAL EMBOLIC EVENT Rhythm: Sinus Technical Quality: good FINDINGS Left Ventricle Normal left ventricular size, wall thickness and systolic function with no obvious regional wall motion abnormalities. Normal left ventricular diastolic filling pattern for age. The ejection fraction is visually estimated at 50%. Right Ventricle The right ventricle is normal in size and function. Right Atrium The right atrium is normal in size. Left Atrium The left atrium is normal in size. The interatrial septum is intact. Mitral Valve The mitral valve is normal in structure and function. There is no mitral regurgitation. Aortic Valve Structurally normal aortic valve without significant sclerosis or stenosis. There is no aortic regurgitation. Tricuspid Valve The tricuspid valve is normal in structure and function. There is mild tricuspid regurgitation. Pulmonary artery systolic pressure is normal. Pulmonic Valve Structurally normal pulmonic valve. There is no pulmonic regurgitation. Pericardium Normal pericardium without effusion. No pleural effusion. Great Vessels Normal aortic root dimension. The aortic arch and great vessels are well seen and are normal. CONCLUSIONS 1. Low normal Ef of 50%. 2. Mild tricuspid regurgitation. Ramon Chu M.D. (Electronically Signed) Final Date: 01 February 2018 22:52 MEASUREMENTS (Male / Female) Normal Values 2D ECHO LV Diastolic Diameter PLAX 5.3 cm 4.2 - 5.9 / 3.9 - 5.3 cm LV Systolic Diameter PLAX 4.2 cm 2.1 - 4.0 cm LV Fractional Shortening PLAX 19.6 % 25 - 46 % LV Ejection Fraction 2D Teich 40.0 % IVS Diastolic Thickness 1.3 cm LVPW Diastolic Thickness 1.3 cm LV Relative Wall Thickness 0.5 RV Internal Dim ED PLAX 3.5 cm 1.9 - 3.8 cm LVOT Diameter 2.6 cm Aortic Root Diameter 3.3 cm LA Systolic Diameter LX 3.8 cm 3.0 - 4.0 / 2.7 - 3.8 cm Ascending Aorta Diameter 2.5 cm DOPPLER AV Peak Velocity 97.2 cm/s AV Peak Gradient 3.8 mmHg AV Mean Velocity 64.2 cm/s AV Mean Gradient 2.0 mmHg AV Velocity Time Integral 18.6 cm LVOT Peak Velocity 51.9 cm/s LVOT Peak Gradient 1.1 mmHg LVOT Mean Velocity 34.2 cm/s LVOT Mean Gradient 1.0 mmHg LVOT Velocity Time Integral 10.5 cm LVOT Stroke Volume 55.7 cm AV Area Cont Eq vti 3.0 cm AV Area Cont Eq pk 2.8 cm MV Peak Velocity 95.1 cm/s MV Peak Gradient 3.6 mmHg MV Mean Velocity 54.4 cm/s MV Mean Gradient 1.0 mmHg Mitral E Point Velocity 63.7 cm/s Mitral A Point Velocity 39.0 cm/s Mitral E to A Ratio 1.6 MV PHT Velocity 102.0 cm/s MV Deceleration [place] 603.0 cm/s MV Pressure Half Time 50.7 ms MV Area PHT 4.3 cm MV Deceleration Time 257.0 ms TR Peak Velocity 214.0 cm/s TR Peak Gradient 18.3 mmHg PV Peak Velocity 113.0 cm/s PV Peak Gradient 5.1 mmHg LV E' Lateral Velocity 8.8 cm/s Mitral E to LV E' Lateral Ratio 7.3 LV E' Septal Velocity 6.4 cm/s Mitral E to LV E' Septal Ratio 9.9
[2018-02-02 06:39] VITALS: BP 122/72
--- NOTE | 2018-02-02 06:45 | PN- Housestaff ---
Opal Tipton 02/02/18 0645: Subjective Follow-up For: LLE cellulitis Acute on chronic bilateral DVT Complaints: no complaints Subjective: Patient seen and examined lying comfortably in bed in no acute distress. He is anxious because of his multiple admissions to the hospital and expresses the wish to go home today. He has no other complaints at this time. No acute events overnight. Review of Systems Constitutional: Reports: see HPI. Objective Last 24 Hrs of Vital Signs/I&O Vital Signs Date Time Temp Pulse Resp B/P B/P Pulse O2 O2 Flow FiO2 Mean Ox Delivery Rate 02/02 1403 98.2 76 18 123/76 96 Room Air 02/02 0826 72 112/80 02/02 0639 98.0 74 18 122/72 97 Room Air 02/01 2149 98.3 83 20 119/67 99 Room Air Intake & Output 02/02 1600 02/02 0800 02/02 0000 Intake Total 800 220 450 Output Total 400 700 Balance 400 220 -250 Intake, IV 200 100 Intake, Oral 600 120 450 Output, Urine 400 700 Physical Exam General Appearance: Alert, Oriented X3, Cooperative, No Acute Distress Other Physical Findings: Skin: Wound/cellulitis on the lateral surface of the left lower leg. In the left thigh has an erythematous, scaly rash on the medial surface, both appear better than they were at time of admission. There is no discharge from both lesions. Not tender to light touch. Skin Temp/Moisture Exam: Cool/Dry Sepsis Skin Exam (color): Normal for Ethnicity HEENT: Atraumatic, mucous Membr. moist/pink Neck: Supple, No Cardiovascular: Regular Rate, Normal S1, Normal S2, No Murmurs Lungs: CTA, No w/r/r Abdomen: Normal Bowel Sounds, Soft, No Tenderness, No Hepatospenomegaly Neurological: Normal Speech, Normal Tone Extremities: No Clubbing, No Cyanosis, No edema Vascular: Pulses Symmetrical Assessment/Plan Assessment: 53 year old man with past medical history significant for HTN, HLD, factor V leiden mutation, multiple DVTs, and obesity presented to the ED for recurrent cellulitis. Problems: 1.Left leg cellulitis 2.bilateral lower extremity DVTacute on chronic: Xarelto failure. 3.hypercoagulable state secondary to factor V bleeding mutation 4.CKD stage III Assessment and plan: refuses IVC filter. 1 week of discharge and with Wound care center 1 week of discharge. PLEASE NOTE: Pt was seen by digital controls technical officer on 02/01/2018. Sharp excisional debridement was done to all wounds on rt and lt lower extremities. Problem List: 1. DVT (deep venous thrombosis) 2. Cellulitis of left leg Pain Ratin Pain Location: Left lower extremity Pain Goal: Pain 4 or less Pain Plan: Follow pain pathway Tomorrow's Labs & Rationales: Not required MarkBonnie galloway 02/02/18 1137: Attending MD Review Statement Attending Statement Attending MD Statement: examined this patient, discuss w/resident/PA/FRONT LOADER RESIDENTIAL DRIVER, agreed w/resident/PA/FRONT LOADER RESIDENTIAL DRIVER, discussed with family, reviewed EMR data (avail), discussed with nursing, discussed with case mgmt, reviewed images, amended to note Attending Assessment/Plan: Patient denies any new complaints. He is calm and coperative today. He is on iv antibiotics as per ID recommendations. He is tolerating his pradaxa. Patient worked with PT and recommendations are to go home with home PT. His wound care routine. Call [facility]. Anticipate discharge as clinical condition improves and ID is ok with discharge. [facility] Vascular surgery Infectious disease Hematology Wound consult FOLLOW UP Heamtology in 2 weeks of discharge PCP in 1 week of discharge Wound center 1 week of discharge.
[2018-02-02 07:57] LABS: ABSOLUTE BASOPHIL COUNT 0 /CUMM (0.0-0.2); ABSOLUTE EOSINOPHIL COUNT 0.4 /CUMM (0.0-0.7); ABSOLUTE GRANULOCYTE CT 11.3 /CUMM (1.4-6.5); ABSOLUTE LYMPH COUNT 1.9 /CUMM (1.2-3.4); ABSOLUTE MONOCYTE COUNT 0.9 /CUMM (0.10-0.60); BASOPHIL % 0.2 % (0.0-2.0); EOSINOPHIL % 2.7 % (0-5); GRANULOCYTE % 78.1 % (42.2-75.2); HEMATOCRIT 31.1 % (42-52); MEAN CORPUSCULAR HGB 29.1 PG (27.0-31.0); MEAN CORPUSCULAR HGB CONC 33.3 G/DL (33.0-37.0); MEAN CORPUSCULAR VOLUME 87.6 FL (80.0-94.0); MEAN PLATELET VOLUME 7.2 FL (7.4-10.4); PLATELET COUNT 330 /CUMM (130-400); RED BLOOD CELL CT 3.56 /CUMM (4.70-6.10); WHITE BLOOD CELL COUNT 14.5 /CUMM (4.8-10.8)
--- NOTE | 2018-02-02 13:35 | PN- Infect Dx ---
Subjective Subjective: Afebrile. He feels overall improved. Objective Last 24 Hrs of Vital Signs/I&O Vital Signs Date Time Temp Pulse Resp B/P B/P Pulse O2 O2 Flow FiO2 Mean Ox Delivery Rate 02/02 0826 72 112/80 02/02 0639 98.0 74 18 122/72 97 Room Air 02/01 2149 98.3 83 20 119/67 99 Room Air Intake & Output 02/02 1600 02/02 0800 02/02 0000 Intake Total 220 450 Output Total 700 Balance 220 -250 Intake, IV 100 Intake, Oral 120 450 Output, Urine 700 Physical Exam Other Physical Findings: He appears comfortable in no acute distress Extremities decreased erythema of the left thigh, nontender to palpation, with no erythema noted over the right thigh or over the anterior tibial aspect of his left leg Results Last 24 Hours of Lab Results: Laboratory Tests 02/02 722 Chemistry Sodium (137 - 145 mmol/L) 140 Potassium (3.5 - 5.1 mmol/L) 4.7 Chloride (98 - 107 mmol/L) 105 Carbon Dioxide (22 - 30 mmol/L) 24 Anion Gap (5 - 16) 11 BUN (9 - 20 mg/dL) 28 H Creatinine (0.7 - 1.2 mg/dL) 1.4 H Estimated GFR (>60 ml/min) 53 L BUN/Creatinine Ratio (7 - 25 %) 20.0 Hematology CBC w Diff NO MAN DIFF REQ WBC (4.8 - 10.8 /CUMM) 14.5 H RBC (4.70 - 6.10 /CUMM) 3.56 L Hgb (14.0 - 18.0 G/DL) 10.4 L Hct (42 - 52 %) 31.1 L MCV (80.0 - 94.0 FL) 87.6 MCH (27.0 - 31.0 PG) 29.1 MCHC (33.0 - 37.0 G/DL) 33.3 RDW (11.5 - 14.5 %) 16.0 H Plt Count (130 - 400 /CUMM) 330 MPV (7.4 - 10.4 FL) 7.2 L Gran % (42.2 - 75.2 %) 78.1 H Lymphocytes % (20.5 - 51.1 %) 12.7 L Monocytes % (1.7 - 9.3 %) 6.3 Eosinophils % (0 - 5 %) 2.7 Basophils % (0.0 - 2.0 %) 0.2 Absolute Granulocytes (1.4 - 6.5 /CUMM) 11.3 H Absolute Lymphocytes (1.2 - 3.4 /CUMM) 1.9 Absolute Monocytes (0.10 - 0.60 /CUMM) 0.9 H Absolute Eosinophils (0.0 - 0.7 /CUMM) 0.4 Absolute Basophils (0.0 - 0.2 /CUMM) 0 Last 24 Hours of Rock Results: No recent cultures Assessment/Plan ID Impression: Overall improved, with his temperatures remaining normal and with near resolution of the left leg erythema, though his white blood cell count remains elevated, after initially decreasing, on Clindamycin and Ceftazidime, Day 6 of treatment for what was felt to be a recurrent left leg cellulitis. At this point, in the absence of any other obvious focus of infection, feel that his antibiotics can be discontinued. Suggestion: 1. Discontinue Clindamycin and Ceftazidime and follow off antibiotics 2. Follow-up white blood cell count as an outpatient
[2018-02-02 14:03] VITALS: BP 123/76
[2018-02-02] MEDS ORDERED: PRADAXA150 M1 PO (14:27)
--- NOTE | 2018-02-02 14:29 | Patient Discharge Instructions ---
See Addendum Discharge Instructions General Discharge Information You were seen/treated for: Cellulitis Bilateral DVT Watch for these problems: IF YOU HAVE ANY OF THESE, PLEASE VISIT YOUR NEAREST EMERGENCY DEPARTMENT: FEVER, CHILLS, WORSENING PAIN, DISCHARGE FROM WOUND, CHEST PAIN, LOSS OF CONSCIOUSNESS Special Instructions: 1-PLEASE FOLLOW UP WITH YOUR PCP IN 1 WEEK OF DISCHARGE 2-PLEASE FOLLOW UP WITH WOUND CARE ONE WEEK AFTER DISCHARGE 3- FOLLOW UP WHITE CELL COUNT OUTPATIENT Diet Continue normal diet: Yes Activity Activity Self Limited: Yes Acute Coronary Syndrome Inclusion Criteria At DC or during hospital stay patient has or had the following: ACS DIAGNOSIS No Discharge Core Measures Meds if any: Prescribed or Continued at Discharge Meds if any: NOT Prescribed or Continued at Discharge Congestive Heart Failure Inclusion Criteria At DC or during hospital stay patient has or had the following: CHF DIAGNOSIS No Discharge Core Measures Meds if any: Prescribed or Continued at Discharge Meds if any: NOT Prescribed or Continued at Discharge Cerebrovascular accident Inclusion Criteria At DC or during hospital stay patient has or had the following: CVA/TIA Diagnosis No Discharge Core Measures Meds if any: Prescribed or Continued at Discharge Meds if any: NOT Prescribed or Continued at Discharge Venous thromboembolism Inclusion Criteria VTE Diagnosis Yes VTE Type Deep Venous Thrombosis VTE Confirmed by (Test) DUPLEX SCAN LOWER EXT Discharge Core Measures - Per Current guidelines, there needs to be overlap - treatment for the first 5 days of Warfarin therapy. - If discharged on Warfarin prior to 5 days of - overlap therapy, the patient will need to be - assessed for post discharge needs including - *Post discharge parental anticoagulation - *Warfarin and/or parental anticoagulation education - *Follow up date to check INR post discharge At least 5 days overlap therapy as Inpatient No Meds if any: Prescribed or Continued at Discharge Note: Overlap Therapy is Warfarin and Anticoagulant Meds if any: NOT Prescribed or Continued at Discharge
[2018-02-02] MEDS ORDERED: ACETAMINOPHEN500 M4 PO (14:31)
== END 2018-02-02 17:52 | disposition home health service (06) | DRG 571 ==
LOC: ERH 11:07 → ERHI 16:34 → 2NB 16:34 → CANRESERV 17:38 → ENRESERV 17:38 → CANRESERV 17:40 → EDBEDREQ 19:35 → ENRESERV 19:56 → ENTRNSPT 21:07 → EDTRNSPTSTS 21:09 → 2NB 21:17 → CMPTRNSPT 21:45 → 2NB 01-28 10:36
PROVIDERS: Hospitalist; Internal Medicine; Physician Assistant Medical; Preventive Medicine Addiction Medicine; Student in an Organized Health Care Education/Training Program
PROC: 0JBL0ZZ Excision of Right Upper Leg Subcutaneous Tissue and Fascia, Open Approach (ICD-10-PCS; principal; 2018-02-01)
PROC: 0JBM0ZZ Excision of Left Upper Leg Subcutaneous Tissue and Fascia, Open Approach (ICD-10-PCS; 2018-02-01)
DX: L03.116 Cellulitis of left lower limb (principal); D68.51 Activated protein C resistance; Z68.42 Body mass index [BMI] 45.0-49.9, adult; J81.1 Chronic pulmonary edema; I82.413 Acute embolism and thrombosis of femoral vein, bilateral; L97.929 Non-pressure chronic ulcer of unspecified part of left lower leg with unspecified severity; L97.919 Non-pressure chronic ulcer of unspecified part of right lower leg with unspecified severity; I87.8 Other specified disorders of veins; E66.01 Morbid (severe) obesity due to excess calories; I12.9 Hypertensive chronic kidney disease with stage 1 through stage 4 chronic kidney disease, or unspecified chronic kidney disease; Z79.01 Long term (current) use of anticoagulants; Z95.9 Presence of cardiac and vascular implant and graft, unspecified; F32.9 Major depressive disorder, single episode, unspecified; E78.5 Hyperlipidemia, unspecified; F41.9 Anxiety disorder, unspecified; N18.3 Chronic kidney disease, stage 3 (moderate)
CPT/HCPCS: 2NBP; 75654; 36415; 36592; 71046; 74018; 78582; 81001; 82436; 87040; 87086; 93005; 93010; 93306; 93970; 97110-GO; 97116-GO; 97161-GP; A9540; A9558; J0713; J1644; J1940; J3101